=== PATIENT | male | born 1990 | race Caucasian/White ===

== ENCOUNTER → 2016-10-04 | Outpatient (REF) | payer OTHER ==
[2016-10-04 18:40] LABS: ALBUMIN 3.7 GM/DL (3.2-5.2); ALBUMIN/GLOBULIN RATIO 1.28 (1.00-1.93); ALKALINE PHOSPHATASE 73 U/L (45-117); ALT/SGPT 39 U/L (12-78); ANION GAP 4 MEQ/L (8-16); AST/SGOT 15 U/L (15-37); BILIRUBIN,TOTAL 0.6 MG/DL (0.2-1.0); BLOOD UREA NITROGEN 13 MG/DL (7-18); CALCIUM LEVEL 8.6 MG/DL (8.5-10.1); CARBON DIOXIDE LEVEL 30 MEQ/L (21-32); CHLORIDE LEVEL 108 MEQ/L (98-107); CHOLESTEROL LEVEL 173 MG/DL (<200); GLOMERULAR FILTRATION RATE > 60.0 (>60); GLUCOSE, FASTING 88 MG/DL (70-105); SODIUM LEVEL 142 MEQ/L (136-145); TOTAL PROTEIN 6.6 GM/DL (6.4-8.2); TRIGLYCERIDES LEVEL 326 MG/DL (<150)
== END ==
LOC: M LAB REF 16:26
PROVIDERS: ATTEND Family Medicine Addiction Medicine
DX: R03.0 Elevated blood-pressure reading, without diagnosis of hypertension (principal)

== ENCOUNTER 2017-11-13 15:24 | Emergency (ER) | payer OTHER ==
[2017-11-13] MEDS: KETOROLAC 60 MG/2 ML VIAL (J1885) IM (15:14)
== END 2017-11-13 15:46 | disposition home or self-care (01) ==
LOC: M ED 15:24
DX: S20.229A Contusion of unspecified back wall of thorax, initial encounter (principal); W10.9XXA Fall (on) (from) unspecified stairs and steps, initial encounter; Y92.009 Unspecified place in unspecified non-institutional (private) residence as the place of occurrence of the external cause; I10 Essential (primary) hypertension; Z79.899 Other long term (current) drug therapy; Z87.891 Personal history of nicotine dependence; Z88.0 Allergy status to penicillin; Z88.8 Allergy status to other drugs, medicaments and biological substances
CPT/HCPCS: J1885

== ENCOUNTER → 2018-07-16 | Outpatient (REF) | payer OTHER ==
[~2018-07-16] MED LIST: CHAN1PAK13 PO; CHLO125TA PO; NAPR-50 PO; SERT-138 PO
[2018-07-16 18:53] LABS: ALBUMIN 4.2 GM/DL (3.2-5.2); ALT/SGPT 50 U/L (12-78); BILIRUBIN,TOTAL 0.7 MG/DL (0.2-1.0); BLOOD UREA NITROGEN 10 MG/DL (7-18); CALCIUM LEVEL 8.9 MG/DL (8.5-10.1); CARBON DIOXIDE LEVEL 29 MEQ/L (21-32); CHLORIDE LEVEL 99 MEQ/L (98-107); CHOLESTEROL LEVEL 204 MG/DL (<200); CHOLESTEROL RISK RATIO 11.333 (<5); CREATININE FOR GFR 0.99 MG/DL (0.70-1.30); GLOMERULAR FILTRATION RATE > 60.0 (>60); GLUCOSE, FASTING 97 MG/DL (70-100); HDL CHOLESTEROL 18 MG/DL (>40); NON-HDL-C 186 MG/DL; POTASSIUM SERUM 3.2 MEQ/L (3.5-5.1); SODIUM LEVEL 137 MEQ/L (136-145); TOTAL PROTEIN 7.7 GM/DL (6.4-8.2); TRIGLYCERIDES LEVEL 781 MG/DL (<150)
== END ==
LOC: M LAB REF 16:50
PROVIDERS: ATTEND Family Medicine Addiction Medicine
DX: F41.8 Other specified anxiety disorders (principal); R03.0 Elevated blood-pressure reading, without diagnosis of hypertension

== ENCOUNTER 2018-12-28 08:28 | Emergency (ER) | payer OTHER ==
[~2018-12-28] VITALS: Ht 188 cm; Wt 123.4 kg
[~2018-12-28 08:28] MED LIST changes: -NAPR-50 PO; +NAPR-837 PO
[2018-12-28 09:11] VITALS: BP 132/70
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
--- NOTE | 2018-12-28 10:35 | REP ---
REASON: Pain after trauma. PRIORS: None. CT cannot rule out an acute disc extrusion. Vertebral body height and alignment is within normal limits. The disc spaces are symmetric and well-maintained. There is no fracture. IMPRESSION: No bony abnormality. Electronically Signed by Aubrey Arceo DO 12/28/2018 12:26 P
[2018-12-28] MEDS ORDERED: PERC5TAB12 PO (11:14)
[2018-12-28] MEDS ORDERED: NAPR-837 PO (11:14)
== END 2018-12-28 11:24 | disposition home or self-care (01) ==
LOC: M ED 08:28
DX: S30.0XXA Contusion of lower back and pelvis, initial encounter (principal); W10.9XXA Fall (on) (from) unspecified stairs and steps, initial encounter; Y92.89 Other specified places as the place of occurrence of the external cause; Y93.9 Activity, unspecified; Y99.0 Civilian activity done for income or pay; I10 Essential (primary) hypertension; F32.9 Major depressive disorder, single episode, unspecified; Z72.0 Tobacco use; Z79.899 Other long term (current) drug therapy; Z88.0 Allergy status to penicillin

== ENCOUNTER → 2019-04-06 | Outpatient (REF) | payer OTHER ==
[~2019-04-06] MED LIST changes: +PERC5TAB12 PO
[2019-04-06 19:04] LABS: ALBUMIN 3.9 GM/DL (3.2-5.2); ALT/SGPT 44 U/L (12-78); BILIRUBIN,TOTAL 0.5 MG/DL (0.2-1.0); BLOOD UREA NITROGEN 16 MG/DL (7-18); CALCIUM LEVEL 8.9 MG/DL (8.5-10.1); CARBON DIOXIDE LEVEL 25 MEQ/L (21-32); CHLORIDE LEVEL 107 MEQ/L (98-107); CHOLESTEROL LEVEL 203 MG/DL (<200); CHOLESTEROL RISK RATIO 9.227 (<5); CREATININE FOR GFR 0.91 MG/DL (0.70-1.30); GLOMERULAR FILTRATION RATE > 60.0 (>60); GLUCOSE, FASTING 91 MG/DL (70-100); HDL CHOLESTEROL 22 MG/DL (>40); NON-HDL-C 181 MG/DL; POTASSIUM SERUM 4.4 MEQ/L (3.5-5.1); SODIUM LEVEL 140 MEQ/L (136-145); THYROID STIMULATING HORMONE 0.774 uIU/ML (0.358-3.740); TOTAL 25(OH) VITAMIN D 11.8 NG/ML (30.0-100.0); TRIGLYCERIDES LEVEL 441 MG/DL (<150)
[2019-04-06 19:44] LABS: HEMOGLOBIN A1c 5.2 %
== END ==
LOC: M LAB REF 16:39
PROVIDERS: ATTEND Nurse Practitioner Family
DX: Z00.01 Encounter for general adult medical examination with abnormal findings (principal)

== ENCOUNTER 2019-05-26 12:22 | Inpatient (IN) | payer OTHER ==
[~2019-05-26] VITALS: Ht 188 cm; Wt 121.6 kg
[2019-05-26] MEDS ORDERED: BUSP15TA47 PO (12:33)
[2019-05-26] MEDS ORDERED: FENO145T7 PO (12:33)
[2019-05-26] MEDS ORDERED: ATOM60CA PO (12:33)
[2019-05-26] MEDS ORDERED: LISI-538 PO (12:33)
[2019-05-26 13:01] LABS: HEMATOCRIT 44.9 % (42.0-52.0); HEMOGLOBIN 15.7 g/dl (13.5-17.5); MEAN CORPUSCULAR HEMOGLOBIN 30.1 pg (27.0-33.0); MEAN CORPUSCULAR VOLUME 86.2 fl (80.0-96.0); PLATELET COUNT, AUTOMATED 283 10^3/uL (150-450); RED BLOOD COUNT 5.21 10^6/uL (4.30-6.10); WHITE BLOOD COUNT 7.2 10^3/uL (4.0-10.0)
[2019-05-26 13:24] LABS: AMPHETAMINES LEVEL URINE NEGATIVE (NEGATIVE); BARBITURATES URINE NEGATIVE (NEGATIVE); BENZODIAZEPINES URINE NEGATIVE (NEGATIVE); CANNABINOIDS URINE NEGATIVE (NEGATIVE); COCAINE METABOLITE URINE NEGATIVE (NEGATIVE); METHADONE URINE NEGATIVE (NEGATIVE); OPIATES URINE NEGATIVE (NEGATIVE); PHENCYCLIDINE URINE NEGATIVE (NEGATIVE)
[2019-05-26 13:34] LABS: ACETAMINOPHEN LEVEL < 2.0 UG/ML (10.0-30.0); ALBUMIN 4.1 GM/DL (3.2-5.2); ALT/SGPT 34 U/L (12-78); BILIRUBIN,DIRECT 0.2 MG/DL (0.0-0.2); BILIRUBIN,TOTAL 0.5 MG/DL (0.2-1.0); BLOOD UREA NITROGEN 17 MG/DL (7-18); CALCIUM LEVEL 8.8 MG/DL (8.5-10.1); CARBON DIOXIDE LEVEL 24 MEQ/L (21-32); CHLORIDE LEVEL 110 MEQ/L (98-107); CREATININE FOR GFR 0.97 MG/DL (0.70-1.30); ETHYL ALCOHOL (ETHANOL) < 0.003 % (0.000-0.010); GLOMERULAR FILTRATION RATE > 60.0 (>60); GLUCOSE, FASTING 81 MG/DL (70-100); POTASSIUM SERUM 4.1 MEQ/L (3.5-5.1); SALICYLATE LEVEL 2.2 MG/DL (5.0-30.0); SODIUM LEVEL 141 MEQ/L (136-145); TOTAL PROTEIN 6.9 GM/DL (6.4-8.2)
[2019-05-26] MEDS ORDERED: MAALOX 30 ML SUSP *UDC PO PRN (19:15)
[2019-05-26] MEDS ORDERED: ACETAMINOPHEN TAB 650MG DOSE (2X325MG) PO PRN (19:15)
[2019-05-26] MEDS ORDERED: MOM 30ML SUSPENSION UDC PO PRN (19:15)
[2019-05-26 20:44] VITALS: BP 150/98
--- NOTE | 2019-05-26 21:26 | HPEPDOC ---
[facility] Medical History & Physical Date of Admission May 26, 2019 Date of Service: May 26, 2019 Attending Physician: CAMMIE BUSH MD History and Physical TIME OF SERVICE: 9:57 PM CHIEF COMPLAINT:Suicidal ideation. REASON FOR CONSULT: High blood pressure HISTORY OF PRESENT ILLNESS: This is a 29-year-old male who was admitted to the inpatient mental unit because of suicidal ideation. We were consulted to see the patient because on initial evaluation, his stock blood pressure is about 200. Repeat blood pressure was in the 150s over 99. The patient has a history of hypertension and is on 20 mg of lisinopril. He denies a prior history of diabetes, CVA, CKD or CAD. He is not sure if he's had a workup to rule out secondary causes of hypertension.He is not sure about his family history because he is adopted. He does drink coffee. REVIEW OF SYSTEMS: 12 point review of systems negative except as listed in HPI PAST MEDICAL/ SURGICAL HISTORY: Chronic hypertension Depression Anxiety Dyslipidemia. Status post left finger surgery SOCIAL HISTORY: He smokes He denies recreational drug use FAMILY HISTORY: Unknown because he is adopted ALLERGIES: Please see below. HOME MEDICATIONS: Please see below. PHYSICAL EXAMINATION: VITAL SIGNS: Please see below. GEN: well-nourished / well developed/ anxious and teary HEENT: NCAT / he has conjunctival injection CVS: RRR/NMRG/no lower extremity edema LUNGS: lungs are clear to auscultation bilaterally on room air MSK/EXTREMITIES: His gait is normal NEURO: CN 2-12 are grossly intact / speech is not dysarthric PSYCH: alert and oriented to person place and time/ able to understand and follow all commands LABORATORY DATA: See below. ASSESSMENT: Mr. Hunter is a 29 yr old male w PMH of depression, anxiety, chronic hypertension, dyslipidemia who is admitted inpatient health unit for management of suicidal ideations; we were consulted for comanagement of his hypertension. PLAN: 1. Uncontrolled hypertension. He is fairly young to have such high blood pressure. He denies a prior history of CAD, CKD, CVA, or diabetes His renal function appears to be intact and his TSH, glucose and calcium are normal Plan: discontinue lisinopril, start amlodipine 2.5 mg daily at bedtime and hydralazine 6.25 mg in the morning / I advised him to cut back on coffee and consume a low-salt diet / also encouraged him to exercise and informed him that weight loss and exercise can help improve his blood pressure control / he can follow-up with his PCP on an outpatient basis to rule out secondary causes of hypertension 2. Tobacco abuse. Plan: Tobacco cessation education Rest of the management per primary team. Thank you for consulting us. We will continue to follow this patient with you Vital Signs Vital Signs Date Time Temp Pulse Resp B/P (MAP) Pulse Ox O2 Delivery O2 Flow Rate FiO2 05/26/19 20:44 97.5 78 16 150/98 (115) 98 Room Air Laboratory Data Labs 24H Laboratory Tests 2 05/26/19 12:46: Nucleated Red Blood Cells % (auto) 0.0, Anion Gap 7L, Glomerular Filtration Rate > 60.0, Calcium Level 8.8, Total Bilirubin 0.5, Direct Bilirubin 0.2, Aspartate Amino Transf (AST/SGOT) 16, Alanine Aminotransferase (ALT/SGPT) 34, Alkaline Phosphatase 50, Total Protein 6.9, Albumin 4.1, Albumin/Globulin Ratio 1.46, Thyroid Stimulating Hormone (TSH) 1.060, Salicylates Level 2.2L, Urine Opiates Screen NEGATIVE, Urine Methadone Screen NEGATIVE, Acetaminophen Level < 2.0L, Urine Barbiturates Screen NEGATIVE, Urine Phencyclidine Screen NEGATIVE, Urine Amphetamines Screen NEGATIVE, Urine Benzodiazepines Screen NEGATIVE, Urine Cocaine Metabolite Screen NEGATIVE, Urine Cannabinoids Screen NEGATIVE, Ethyl Alcohol Level < 0.003 CBC/BMP Laboratory Tests 05/26/19 12:46 Home Medications Scheduled Atomoxetine Hydrochloride (Strattera) 60 Mg Capsule, 60 MG PO DAILY Buspirone HCl (Buspirone HCl) 15 Mg Tablet, 15 MG PO BID Fenofibrate Nanocrystallized (Fenofibrate) 145 Mg Tablet, 145 MG PO DAILY Lisinopril (Lisinopril) 20 Mg Tablet, 20 MG PO DAILY Sertraline HCl (Sertraline HCl) 100 Mg Tab, 100 MG PO DAILY Allergies Coded Allergies: amoxicillin (Verified Adverse Reaction, Intermediate, vomits, 05/26/19) clavulanic acid (Verified Adverse Reaction, Intermediate, vomits, 05/26/19) oxycodone (Verified Adverse Reaction, Intermediate, vomiting, 05/26/19) A-FIB/CHADSVASC A-FIB History Current/History of A-Fib/PAF?: No Current PO Anticoag Therapy: No GAURAV JEROME MD May 26, 2019 21:26
[2019-05-26] MEDS ORDERED: LORazepam 1 MG TAB PO PRN (21:30)
[2019-05-26] MEDS: traZODone 50 MG TAB PO PRN (23:06)
[2019-05-27] MEDS: HYDROCHLOROthiazide 6.25MG PER 1/4TAB PO SCH (08:25)
[2019-05-27] MEDS: NICOTINE 21MG/24HR 1 EA TRANSDERMAL TD SCH (08:28)
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
[2019-05-27] MEDS ORDERED: hydrOXYzine 50 MG TAB PO PRN (09:30)
[2019-05-27] MEDS ORDERED: busPIRone 5 MG TAB PO ONE (10:00)
[2019-05-27] MEDS ORDERED: SERTRALINE HCL 50 MG TAB PO ONE (10:00)
[2019-05-27] MEDS: ATOMOXETINE HCL 40 MG CAP (STRATTERA) PO SCH (10:26)
[2019-05-27 15:47] VITALS: BP 129/75
[2019-05-27] MEDS: busPIRone 5 MG TAB PO SCH (21:10)
[2019-05-27] MEDS: traZODone 50 MG TAB PO PRN (22:49)
[2019-05-28 07:59] VITALS: BP 155/83
[2019-05-28] MEDS: ATOMOXETINE HCL 40 MG CAP (STRATTERA) PO SCH (08:17)
[2019-05-28] MEDS: SERTRALINE HCL 50 MG TAB PO SCH (08:18)
[2019-05-28] MEDS: NICOTINE 21MG/24HR 1 EA TRANSDERMAL TD SCH (08:18)
[2019-05-28] MEDS: busPIRone 5 MG TAB PO SCH ×2 (08:18→20:39)
[2019-05-28] MEDS: HYDROCHLOROthiazide 6.25MG PER 1/4TAB PO SCH (09:31)
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
[2019-05-28 15:52] VITALS: BP 140/94
[2019-05-28] MEDS: traZODone 50 MG TAB PO PRN (22:59)
[2019-05-29 06:36] VITALS: BP 136/77
[2019-05-29] MEDS: ATOMOXETINE HCL 40 MG CAP (STRATTERA) PO SCH (08:20)
[2019-05-29] MEDS: SERTRALINE HCL 50 MG TAB PO SCH (08:20)
[2019-05-29] MEDS: busPIRone 5 MG TAB PO SCH ×2 (08:20→21:10)
[2019-05-29] MEDS: NICOTINE 21MG/24HR 1 EA TRANSDERMAL TD SCH (08:20)
[2019-05-29] MEDS: HYDROCHLOROthiazide 6.25MG PER 1/4TAB PO SCH (08:20)
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
[2019-05-29] MEDS ORDERED: OLANZapine ORAL DISINTEGRATING TAB 5MG PO PRN (09:45)
[2019-05-29] MEDS ORDERED: OLANZapine ORAL DISINTEGRATING TAB 5MG PO ONE (10:00)
[2019-05-29] MEDS ORDERED: PROPRANOLOL 10 MG TAB PO ONE (10:00)
[2019-05-29] MEDS: PROPRANOLOL 10 MG TAB PO SCH ×2 (15:54→21:09)
[2019-05-29 16:43] VITALS: BP 131/63
[2019-05-29] MEDS: traZODone 50 MG TAB PO PRN (21:09)
[2019-05-30 06:42] VITALS: BP 130/81
[2019-05-30] MEDS: busPIRone 5 MG TAB PO SCH ×2 (08:14→20:09)
[2019-05-30] MEDS: SERTRALINE HCL 50 MG TAB PO SCH (08:14)
[2019-05-30] MEDS: NICOTINE 21MG/24HR 1 EA TRANSDERMAL TD SCH (08:14)
[2019-05-30] MEDS: PROPRANOLOL 10 MG TAB PO SCH ×3 (08:15→20:10)
[2019-05-30] MEDS: HYDROCHLOROthiazide 6.25MG PER 1/4TAB PO SCH (08:15)
[2019-05-30 16:18] VITALS: BP 138/83
[2019-05-30] MEDS: traZODone 50 MG TAB PO PRN (21:19)
[2019-05-31 06:44] VITALS: BP 135/82
[2019-05-31] MEDS: SERTRALINE HCL 50 MG TAB PO SCH (08:49)
[2019-05-31] MEDS: busPIRone 5 MG TAB PO SCH (08:49)
[2019-05-31 08:50] VITALS: BP 138/71
[2019-05-31] MEDS: NICOTINE 21MG/24HR 1 EA TRANSDERMAL TD SCH (08:50)
[2019-05-31] MEDS: PROPRANOLOL 10 MG TAB PO SCH (08:50)
[2019-05-31] MEDS: HYDROCHLOROthiazide 6.25MG PER 1/4TAB PO SCH (08:50)
[2019-05-31] MEDS ORDERED: ATOM60CA PO (09:05)
[2019-05-31] MEDS ORDERED: SERT50TA29 PO (09:05)
[2019-05-31] MEDS ORDERED: TRAZ-252 PO (09:05)
[2019-05-31] MEDS ORDERED: BUSP15TA47 PO (09:05)
[2019-05-31] MEDS ORDERED: HYDR50TA70 PO (09:05)
[2019-05-31] MEDS ORDERED: PROP10TA56 PO (09:05)
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
== END 2019-05-31 10:26 | disposition home or self-care (01) | DRG 755 ==
LOC: M ED 12:22 → M ED INP 19:08 → M PSY 20:24
PROVIDERS: ADMIT Psychiatry & Neurology Psychiatry; ATTEND Psychiatry & Neurology Psychiatry
DX: F43.10 Post-traumatic stress disorder, unspecified (principal); F32.9 Major depressive disorder, single episode, unspecified; F43.21 Adjustment disorder with depressed mood; F45.22 Body dysmorphic disorder; R45.851 Suicidal ideations; Z91.5 Personal history of self-harm; Z62.810 Personal history of physical and sexual abuse in childhood; F90.9 Attention-deficit hyperactivity disorder, unspecified type; Z79.899 Other long term (current) drug therapy; I10 Essential (primary) hypertension; Z88.0 Allergy status to penicillin; Z88.8 Allergy status to other drugs, medicaments and biological substances; Z88.6 Allergy status to analgesic agent; F41.9 Anxiety disorder, unspecified; E78.5 Hyperlipidemia, unspecified; F17.210 Nicotine dependence, cigarettes, uncomplicated

== ENCOUNTER 2019-06-16 20:01 | Inpatient (IN) | payer OTHER ==
[~2019-06-16] VITALS: Ht 188 cm; Wt 122.5 kg
[2019-06-16] MEDS: NICOTINE 14 MG/24 HR TRANSDERMAL TD SCH (09:00)
[~2019-06-16 20:01] MED LIST changes: +ATOM60CA PO; +BUSP15TA47 PO; +FENO145T7 PO; +HYDR50TA70 PO; +LISI-538 PO; +PROP10TA56 PO; +SERT50TA29 PO; +TRAZ-252 PO
[2019-06-16] MEDS ORDERED: CHARCOAL ACTIVATED LIQUID 25 GM/120 ML BTL PO ONE (20:45)
[2019-06-16 21:09] LABS: BASO # 0.1 10^3/uL (0.0-0.2); BASO % 0.5 % (0.0-1.0); EOS # 0.1 10^3/uL (0.0-0.5); EOS % 0.8 % (0.0-3.0); HEMATOCRIT 43.2 % (42.0-52.0); HEMOGLOBIN 15.2 g/dl (13.5-17.5); LYMPH # 2.5 10^3/uL (1.5-5.0); LYMPH % 24.1 % (24.0-44.0); MEAN CORPUSCULAR HEMOGLOBIN 30.3 pg (27.0-33.0); MEAN CORPUSCULAR HGB CONC 35.2 g/dl (32.0-36.5); MEAN CORPUSCULAR VOLUME 86.1 fl (80.0-96.0); MONO # 0.8 10^3/uL (0.0-0.8); MONO % 7.3 % (0.0-5.0); NEUTROPHILS # 6.8 10^3/uL (1.5-8.5); NEUTROPHILS % 66.5 % (36.0-66.0); PLATELET COUNT, AUTOMATED 273 10^3/uL (150-450); RED BLOOD COUNT 5.02 10^6/uL (4.30-6.10); WHITE BLOOD COUNT 10.3 10^3/uL (4.0-10.0)
[2019-06-16 21:43] LABS: AMPHETAMINES LEVEL URINE NEGATIVE (NEGATIVE); BARBITURATES URINE NEGATIVE (NEGATIVE); BENZODIAZEPINES URINE NEGATIVE (NEGATIVE); CANNABINOIDS URINE NEGATIVE (NEGATIVE); COCAINE METABOLITE URINE NEGATIVE (NEGATIVE); METHADONE URINE NEGATIVE (NEGATIVE); OPIATES URINE NEGATIVE (NEGATIVE); PHENCYCLIDINE URINE NEGATIVE (NEGATIVE)
[2019-06-16 22:04] LABS: ACETAMINOPHEN LEVEL < 2.0 UG/ML (10.0-30.0); ALBUMIN 3.8 GM/DL (3.2-5.2); ALT/SGPT 48 U/L (12-78); BILIRUBIN,DIRECT < 0.1 MG/DL (0.0-0.2); BILIRUBIN,TOTAL 0.3 MG/DL (0.2-1.0); BLOOD UREA NITROGEN 8 MG/DL (7-18); CALCIUM LEVEL 8.4 MG/DL (8.5-10.1); CARBON DIOXIDE LEVEL 26 MEQ/L (21-32); CHLORIDE LEVEL 109 MEQ/L (98-107); CPK CREATINE PHOSPHOKINASE 157 U/L (39-308); CREATININE FOR GFR 0.86 MG/DL (0.70-1.30); ETHYL ALCOHOL (ETHANOL) < 0.003 % (0.000-0.010); GLOMERULAR FILTRATION RATE > 60.0 (>60); GLUCOSE, FASTING 150 MG/DL (70-100); SALICYLATE LEVEL < 1.7 MG/DL (5.0-30.0); SODIUM LEVEL 141 MEQ/L (136-145); TOTAL PROTEIN 6.9 GM/DL (6.4-8.2)
[2019-06-17] MEDS ORDERED: methylPREDNISolone INJ 125 MG/2 ML VIAL (J2930) IM ONE (00:30)
--- NOTE | 2019-06-17 01:06 | REP ---
Clinical: Dyspnea . Comparison: None . Technique: PA and lateral. Findings: The mediastinum and cardiac silhouette are normal. The lung hammond are clear and without acute consolidation, effusion, or pneumothorax. The skeletal structures are intact and normal. Impression: 1. No focal consolidation. Electronically Signed by Skinny Mann MD 06/17/2019 12:57 A
[2019-06-17] MEDS ORDERED: ACETAMINOPHEN TAB 650MG DOSE (2X325MG) PO PRN (02:15)
[2019-06-17] MEDS ORDERED: MOM 30ML SUSPENSION UDC PO PRN (02:15)
[2019-06-17] MEDS ORDERED: MAALOX 30 ML SUSP *UDC PO PRN (02:15)
[2019-06-17 02:54] VITALS: BP 138/88
[2019-06-17] MEDS ORDERED: HYDR50TA70 PO (03:02)
[2019-06-17] MEDS ORDERED: SERT-138 PO (03:02)
[2019-06-17] MEDS ORDERED: BUSP15TA47 PO (03:02)
[2019-06-17] MEDS ORDERED: TRAZ-252 PO (03:02)
[2019-06-17] MEDS ORDERED: ATOM60CA PO (03:02)
[2019-06-17] MEDS ORDERED: PROP10TA56 PO (03:02)
[2019-06-17 06:27] VITALS: BP 138/89
--- NOTE | 2019-06-17 08:53 | HPEPDOC ---
[facility] Medical History & Physical Date of Admission Jun 17, 2019 Date of Service: Jun 17, 2019 History and Physical CHIEF COMPLAINT: Suicide attempt HISTORY OF PRESENT ILLNESS: 29-year-old male with past medical history of depression and hypertension as is admitted to inpatient mental health unit after suicide attempt. Patient reports having waxing and waning anxiety/depression with multiple suicide attempts in the past. Patient is not sure what changed recently to cause him to attempt suicide. He attempted strangulating, followed by overdosing on trazodone. He only took 5 tabs and presented to the emergency department soon afterwards. Patient is currently at his baseline level of health, without any complaints at this time. He denies any shortness of breath, chest pain, nausea, vomiting, abdominal pain or diarrhea. 10 point review of system is negative except for above PAST MEDICAL HISTORY: 1. Depression. 2. Anxiety. 3. Hypertension. PAST SURGICAL HISTORY: 1. None. SOCIAL HISTORY: Smokes 5 cigarettes per day, has been smoking for 6 years. Social alcohol use. Denies drug use FAMILY HISTORY: Patient does not know family history ALLERGIES: Please see below. HOME MEDICATIONS: Please see below. PHYSICAL EXAMINATION: VITAL SIGNS: Please see below. GENERAL: No distress HEENT: Normocephalic, atraumatic, moist mucous membranes NECK: Supple CARDIOVASCULAR EXAMINATION: S1, S2, no murmurs RESPIRATORY EXAMINATION: Clear to auscultation, no wheezing ABDOMINAL EXAMINATION: Soft, nontender, nondistended, positive bowel sounds EXTREMITIES: Range of motion intact SKIN: No rash NEUROLOGICAL EXAMINATION: Alert and oriented 3, no focal deficits PSYCHIATRIC EXAMINATION: Calm and cooperative LABORATORY DATA: See below. MICROBIOLOGY: Please see below. ASSESSMENT: 29-year-old male with past medical history of depression and hypertension is admitted to inpatient mental health unit after suicide attempt. PLAN: 1. Suicide attempt. Management as per primary team 2. Hypertension. Continue lisinopril and propranolol Patient does not have any active medical issues at this time, please reconsult as needed. Vital Signs Vital Signs Date Time Temp Pulse Resp B/P (MAP) Pulse Ox O2 Delivery O2 Flow Rate FiO2 06/17/19 06:27 98.5 66 18 138/89 (105) 06/17/19 02:54 97 Room Air Laboratory Data Labs 24H Laboratory Tests 2 06/16/19 20:59: Immature Granulocyte % (Auto) 0.8, Neutrophils (%) (Auto) 66.5H, Lymphocytes (%) (Auto) 24.1, Monocytes (%) (Auto) 7.3H, Eosinophils (%) (Auto) 0.8, Basophils (%) (Auto) 0.5, Neutrophils # (Auto) 6.8, Lymphocytes # (Auto) 2.5, Monocytes # (Auto) 0.8, Eosinophils # (Auto) 0.1, Basophils # (Auto) 0.1, Nucleated Red Blood Cells % (auto) 0.0, Anion Gap 6L, Glomerular Filtration Rate > 60.0, Calcium Level 8.4L, Total Bilirubin 0.3, Direct Bilirubin < 0.1, Aspartate Amino Transf (AST/SGOT) 20, Alanine Aminotransferase (ALT/SGPT) 48, Alkaline Alexis sphatase 60, Total Creatine Kinase 157, Total Protein 6.9, Albumin 3.8, Albumin/Globulin Ratio 1.23, Thyroid Stimulating Hormone (TSH) 1.420, Salicylates Level < 1.7L, Acetaminophen Level < 2.0L, Ethyl Alcohol Level < 0.003 06/16/19 21:15: Urine Opiates Screen NEGATIVE, Urine Methadone Screen NEGATIVE, Urine Barbiturates Screen NEGATIVE, Urine Phencyclidine Screen NEGATIVE, Urine Amphetamines Screen NEGATIVE, Urine Benzodiazepines Screen NEGATIVE, Urine Cocaine Metabolite Screen NEGATIVE, Urine Cannabinoids Screen NEGATIVE CBC/BMP Laboratory Tests 06/16/19 20:59 Home Medications Scheduled Atomoxetine Hydrochloride (Strattera) 60 Mg Capsule, 60 MG PO DAILY for Buspirone HCl (Buspirone HCl) 15 Mg Tablet, 15 MG PO BID for Fenofibrate Nanocrystallized (Fenofibrate) 145 Mg Tablet, 145 MG PO DAILY for Lisinopril (Lisinopril) 20 Mg Tablet, 20 MG PO DAILY for Propranolol HCl (Propranolol HCl) 10 Mg Tablet, 10 MG PO TID for Sertraline HCl (Sertraline HCl) 100 Mg Tablet, 150 MG PO DAILY for Scheduled PRN Hydroxyzine HCl (Hydroxyzine HCl) 50 Mg Tablet, 50 MG PO Q6H PRN for ANXIETY Trazodone HCl (Trazodone HCl) 50 Mg Tablet, 50 MG PO QHS PRN for INSOMNIA Allergies Coded Allergies: amoxicillin (Verified Adverse Reaction, Intermediate, vomits, 05/26/19) clavulanic acid (Verified Adverse Reaction, Intermediate, vomits, 05/26/19) oxycodone (Verified Adverse Reaction, Intermediate, vomiting, 05/26/19) A-FIB/CHADSVASC A-FIB History Current/History of A-Fib/PAF?: No YUNI INIGUEZ MD Jun 17, 2019 08:53
[2019-06-17] MEDS: FENOFIBRATE 145 MG TAB (TRICOR) PO SCH (08:56)
[2019-06-17] MEDS: lisinopriL 20 MG TAB PO SCH (08:58)
[2019-06-17] MEDS ORDERED: SERTRALINE HCL 50 MG TAB PO SCH (09:00)
[2019-06-17] MEDS ORDERED: ATOMOXETINE HCL 40 MG CAP (STRATTERA) PO SCH ×2 (09:00)
[2019-06-17] MEDS: NICOTINE 14 MG/24 HR TRANSDERMAL TD SCH (09:00)
[2019-06-17] MEDS ORDERED: busPIRone 5 MG TAB PO SCH (09:00)
[2019-06-17] MEDS: PROPRANOLOL 10 MG TAB PO SCH ×3 (10:11→20:36)
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
[2019-06-17 15:41] VITALS: BP 149/70
[2019-06-18 06:08] VITALS: BP 142/71
[2019-06-18] MEDS: lisinopriL 20 MG TAB PO SCH (08:44)
[2019-06-18] MEDS: NICOTINE 14 MG/24 HR TRANSDERMAL TD SCH (08:44)
[2019-06-18] MEDS: FENOFIBRATE 145 MG TAB (TRICOR) PO SCH (08:46)
[2019-06-18] MEDS: PROPRANOLOL 10 MG TAB PO SCH ×3 (08:46→20:45)
[2019-06-18] MEDS ORDERED: VENLAFAXINE **XR** 37.5 MG CAPSULE PO SCH (09:00)
[2019-06-18] MEDS ORDERED: SERTRALINE 100 MG TAB PO SCH (09:00)
[2019-06-18] MEDS ORDERED: ATOMOXETINE HCL 40 MG CAP (STRATTERA) PO SCH (09:00)
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
--- NOTE | 2019-06-18 13:13 | ECGEPIP ---
[facility] - ED Test Date: 2019-06-16 Pat Name: FERNANDO RASMUSSEN Department: Room: [place] [address] Gender: Male [employer]: : 1990 Requested By: JIMENA BURTON Order Number: [id number] Reading MD: Emelina Hopkins Measurements Intervals [place] Rate: 99 P: 42 WV: 148 QRS: 40 QRSD: 82 T: 42 QT: 334 QTc: 429 Interpretive Statements SINUS RHYTHM POSSIBLE LEFT ATRIAL ENLARGEMENT NONSPECIFIC ST & T-WAVE ABNORMALITY NO PRIOR Electronically Signed on 06-18-2019 13:13:09 EST by Emelina Hopkins
[2019-06-18 15:07] VITALS: BP 122/55
[2019-06-18] MEDS: OLANZapine ORAL DISINTEGRATING TAB 5MG PO PRN (17:43)
[2019-06-18] MEDS: ARIPiprazole 2 MG TAB PO SCH (20:45)
[2019-06-18] MEDS: RAMELTEON 8 MG TAB (ROZEREM) PO SCH (20:45)
[2019-06-19 06:06] VITALS: BP 130/65
[2019-06-19] MEDS: VENLAFAXINE **XR** 75MG CAPSULE PO SCH (08:34)
[2019-06-19] MEDS: lisinopriL 20 MG TAB PO SCH (08:34)
[2019-06-19] MEDS: FENOFIBRATE 145 MG TAB (TRICOR) PO SCH (08:34)
[2019-06-19] MEDS: PROPRANOLOL 10 MG TAB PO SCH ×3 (08:34→20:06)
[2019-06-19] MEDS: SERTRALINE HCL 25 MG TABLET PO SCH (08:34)
[2019-06-19] MEDS: NICOTINE 14 MG/24 HR TRANSDERMAL TD SCH (08:35)
[2019-06-19 15:29] VITALS: BP 138/77
--- NOTE | 2019-06-19 16:15 | MHIPN ---
DATE: 06/19/2019 The patient today was sleeping in his bed, but he arose easily. He stated, "I am feeling pretty good." He says that his mood is now 3 out of 10 where the closest to 10 is the most depressed. He says that he slept good. He had no complaints. MENTAL STATUS EXAMINATION: He is alert and oriented times three. He is verbally spontaneous. There is no formal thought disorder noted. He says his mood is "pretty good." Affect is constricted but appropriate to mood. He is not psychotic, suicidal or homicidal. Concentration is fair. Memory intact. Insight and judgment fair. DIAGNOSES: 1. Posttraumatic stress disorder (PTSD). 2. Major depressive disorder. 3. Borderline personality disorder. TREATMENT PLAN: At this point, we will continue to further evaluate this patient for continued elevation and stabilization of his mood and continued resolution of suicidal ideations. We will continue his cross tapering his Zoloft with Effexor and continue his Abilify.
[2019-06-19] MEDS: OLANZapine ORAL DISINTEGRATING TAB 5MG PO PRN (19:41)
[2019-06-19] MEDS: RAMELTEON 8 MG TAB (ROZEREM) PO SCH (20:06)
[2019-06-19] MEDS: ARIPiprazole 2 MG TAB PO SCH (20:06)
[2019-06-19 20:23] VITALS: BP 163/93
[2019-06-20 06:12] VITALS: BP 142/76
[2019-06-20] MEDS: FENOFIBRATE 145 MG TAB (TRICOR) PO SCH (08:20)
[2019-06-20] MEDS: VENLAFAXINE **XR** 75MG CAPSULE PO SCH (08:20)
[2019-06-20] MEDS: PROPRANOLOL 10 MG TAB PO SCH ×3 (08:20→20:25)
[2019-06-20] MEDS: SERTRALINE HCL 25 MG TABLET PO SCH (08:20)
[2019-06-20] MEDS: lisinopriL 20 MG TAB PO SCH (08:20)
[2019-06-20] MEDS: NICOTINE 14 MG/24 HR TRANSDERMAL TD SCH (08:22)
--- NOTE | 2019-06-20 13:22 | MHIPN ---
DATE: 06/20/2019 The patient today tells me that he is actually feeling a little bit better. He has spoken with his girlfriend who is willing to support his being gender questioning but they would be just be friends and they can continue to live together. He also told his parents. He feels as a result he is feeling less depressed. He is not suicidal. He says that he slept better last night. MENTAL STATUS EXAM: This is patient is alert and oriented times three. Eye contact is fairly good. He is not psychotic and he denies suicidal, homicidal ideations. He is verbally spontaneous and there is no formal thought disorder noted. Concentration is fair. Memory is intact. Insight and judgment is fair. DIAGNOSIS: Post-traumatic stress disorder, major depressive disorder and borderline personality disorder. TREATMENT AND PLAN: At this point we will continue to monitor the patient for continued elevation and stabilization of his mood and continue resolution of suicidal ideations and we will continue to cross titrate his medications particularly the change from Zoloft to Effexor.
[2019-06-20] MEDS: OLANZapine ORAL DISINTEGRATING TAB 5MG PO PRN (14:11)
[2019-06-20 16:02] VITALS: BP 136/67
[2019-06-20] MEDS: RAMELTEON 8 MG TAB (ROZEREM) PO SCH (20:24)
[2019-06-20] MEDS: ARIPiprazole 2 MG TAB PO SCH (20:30)
[2019-06-21 06:50] VITALS: BP 119/63
[2019-06-21] MEDS: NICOTINE 14 MG/24 HR TRANSDERMAL TD SCH (08:22)
[2019-06-21] MEDS: lisinopriL 20 MG TAB PO SCH (08:28)
[2019-06-21] MEDS: PROPRANOLOL 10 MG TAB PO SCH ×3 (08:29→20:07)
[2019-06-21] MEDS: SERTRALINE HCL 25 MG TABLET PO SCH (08:29)
[2019-06-21] MEDS: FENOFIBRATE 145 MG TAB (TRICOR) PO SCH (08:29)
[2019-06-21] MEDS: VENLAFAXINE **XR** 75MG CAPSULE PO SCH (08:29)
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
[2019-06-21 16:00] VITALS: BP 136/83
[2019-06-21] MEDS: OLANZapine ORAL DISINTEGRATING TAB 5MG PO PRN (16:14)
[2019-06-21] MEDS: ARIPiprazole 2 MG TAB PO SCH (20:06)
[2019-06-21] MEDS: RAMELTEON 8 MG TAB (ROZEREM) PO SCH (20:06)
[2019-06-22 06:14] VITALS: BP 133/88
[2019-06-22] MEDS: NICOTINE 14 MG/24 HR TRANSDERMAL TD SCH (08:06)
[2019-06-22 08:11] VITALS: BP 132/78
[2019-06-22] MEDS: FENOFIBRATE 145 MG TAB (TRICOR) PO SCH (08:11)
[2019-06-22] MEDS: lisinopriL 20 MG TAB PO SCH (08:11)
[2019-06-22] MEDS: PROPRANOLOL 10 MG TAB PO SCH (08:11)
[2019-06-22] MEDS ORDERED: SERTRALINE HCL 25 MG TABLET PO SCH (09:00)
[2019-06-22] MEDS ORDERED: VENLAFAXINE **XR** 75MG CAPSULE PO SCH (09:00)
[2019-06-22] MEDS ORDERED: VENLAFAXINE **XR** 37.5 MG CAPSULE PO SCH (09:00)
[2019-06-22] MEDS ORDERED: VENL37.598 PO (11:23)
[2019-06-22] MEDS ORDERED: ABIL1TAB13 PO (11:23)
[2019-06-22] MEDS ORDERED: MELA3TAB24 PO (11:23)
[2019-06-22] MEDS ORDERED: NICO14PA TD (11:23)
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
== END 2019-06-22 12:25 | disposition home or self-care (01) | DRG 755 ==
LOC: M ED 20:01 → M ED INP 06-17 02:08 → M PSY 06-17 02:32
PROVIDERS: ADMIT Psychiatry & Neurology Psychiatry; ATTEND Psychiatry & Neurology Addiction Medicine
DX: F43.12 Post-traumatic stress disorder, chronic (principal); F32.1 Major depressive disorder, single episode, moderate; F60.3 Borderline personality disorder; Z62.810 Personal history of physical and sexual abuse in childhood; F90.9 Attention-deficit hyperactivity disorder, unspecified type; Z91.5 Personal history of self-harm; Z79.899 Other long term (current) drug therapy; Z88.1 Allergy status to other antibiotic agents; Z88.5 Allergy status to narcotic agent; Z88.8 Allergy status to other drugs, medicaments and biological substances; I10 Essential (primary) hypertension; F17.210 Nicotine dependence, cigarettes, uncomplicated

== ENCOUNTER 2019-08-22 15:51 | Inpatient (IN) | payer OTHER ==
[~2019-08-22] VITALS: Ht 182.9 cm; Wt 128.4 kg
[~2019-08-22 15:51] MED LIST changes: +ABIL1TAB13 PO; +MELA3TAB24 PO; +NICO14PA TD; +VENL37.598 PO
[2019-08-22] MEDS ORDERED: ESTR1TAB PO (15:58)
[2019-08-22] MEDS ORDERED: FINA1TAB12 PO (15:58)
[2019-08-22] MEDS ORDERED: NICOTINE 21MG/24HR 1 EA TRANSDERMAL TD ONE (16:30)
[2019-08-22 16:57] LABS: HEMATOCRIT 40.2 % (42.0-52.0); HEMOGLOBIN 14.3 g/dl (13.5-17.5); MEAN CORPUSCULAR HEMOGLOBIN 30.7 pg (27.0-33.0); MEAN CORPUSCULAR HGB CONC 35.6 g/dl (32.0-36.5); MEAN CORPUSCULAR VOLUME 86.3 fl (80.0-96.0); PLATELET COUNT, AUTOMATED 293 10^3/uL (150-450); RED BLOOD COUNT 4.66 10^6/uL (4.30-6.10); WHITE BLOOD COUNT 11.9 10^3/uL (4.0-10.0)
[2019-08-22] MEDS ORDERED: VENL37.52 PO (17:03)
[2019-08-22] MEDS ORDERED: ARIP1TAB4 PO (17:03)
[2019-08-22] MEDS ORDERED: FENO145T7 PO (17:03)
[2019-08-22 17:15] LABS: AMPHETAMINES LEVEL URINE NEGATIVE (NEGATIVE); BARBITURATES URINE NEGATIVE (NEGATIVE); BENZODIAZEPINES URINE NEGATIVE (NEGATIVE); CANNABINOIDS URINE NEGATIVE (NEGATIVE); COCAINE METABOLITE URINE NEGATIVE (NEGATIVE); METHADONE URINE NEGATIVE (NEGATIVE); OPIATES URINE NEGATIVE (NEGATIVE); PHENCYCLIDINE URINE NEGATIVE (NEGATIVE)
[2019-08-22 17:24] LABS: ACETAMINOPHEN LEVEL < 2.0 UG/ML (10.0-30.0); ALBUMIN 3.5 GM/DL (3.2-5.2); ALT/SGPT 35 U/L (12-78); BILIRUBIN,DIRECT < 0.1 MG/DL (0.0-0.2); BILIRUBIN,TOTAL 0.3 MG/DL (0.2-1.0); BLOOD UREA NITROGEN 9 MG/DL (7-18); CALCIUM LEVEL 8.3 MG/DL (8.5-10.1); CARBON DIOXIDE LEVEL 24 MEQ/L (21-32); CHLORIDE LEVEL 109 MEQ/L (98-107); CREATININE FOR GFR 0.84 MG/DL (0.70-1.30); ETHYL ALCOHOL (ETHANOL) < 0.003 % (0.000-0.010); GLOMERULAR FILTRATION RATE > 60.0 (>60); GLUCOSE, FASTING 106 MG/DL (70-100); POTASSIUM SERUM 3.6 MEQ/L (3.5-5.1); SALICYLATE LEVEL 1.8 MG/DL (5.0-30.0); SODIUM LEVEL 141 MEQ/L (136-145); THYROID STIMULATING HORMONE 0.808 uIU/ML (0.358-3.740); TOTAL PROTEIN 6.4 GM/DL (6.4-8.2)
[2019-08-22] MEDS ORDERED: OLANZapine 5 MG TAB PO PRN (19:45)
[2019-08-22] MEDS ORDERED: MAALOX 30 ML SUSP *UDC PO PRN (19:45)
[2019-08-22] MEDS ORDERED: MOM 30ML SUSPENSION UDC PO PRN (19:45)
[2019-08-22 20:39] VITALS: BP 170/84
[2019-08-22] MEDS ORDERED: ARIPiprazole 2 MG TAB PO SCH (21:00)
[2019-08-22 21:50] VITALS: BP 142/88
[2019-08-22] MEDS: estradioL 1 MG TAB PO SCH (21:59)
[2019-08-22] MEDS: traZODone 50 MG TAB PO PRN (22:00)
[2019-08-23 06:08] VITALS: BP 122/59
[2019-08-23] MEDS: lisinopriL 20 MG TAB PO SCH (08:29)
[2019-08-23] MEDS: NICOTINE 21MG/24HR 1 EA TRANSDERMAL TD SCH (08:29)
[2019-08-23] MEDS: ACETAMINOPHEN TAB 650MG DOSE (2X325MG) PO PRN ×2 (08:29→16:30)
[2019-08-23] MEDS: estradioL 1 MG TAB PO SCH ×2 (08:29→20:40)
[2019-08-23] MEDS: VENLAFAXINE **XR** 37.5 MG CAPSULE PO SCH (08:29)
[2019-08-23] MEDS: FENOFIBRATE 145 MG TAB (TRICOR) PO SCH (08:29)
--- NOTE | 2019-08-23 10:40 | HPEPDOC ---
General Date of Admission Aug 22, 2019 at 19:31 Date of Service: Aug 23, 2019 Chief Complaint The patient is a 29-year-old male admitted with a reason for visit of possible psychosis Source: Patient Exam Limitations: No limitations History of Present Illness Patient is a 29-year-old male transitioning to female with history of obesity (BMI 38) who presents for 2 weeks of auditory hallucinations with suicidal ideation. Of note: Patient would like to be called Yanique Patient states she was in her usual state of health until 2 weeks prior to adm ission when she started hearing command auditory hallucinations with suicidal ideation with plan. Since the hallucinations commanding her to kill herself. Patient mentions that plans include hanging self, car accident, cutting, and throwing herself down the stairs. Patient is a prior history with the same presentation of altered hallucinations and suicidal ideation in the past. Patient denies any new stressors. Denies transitioning to female as a stressor. Patient does not starting hormone therapy in June and patient wondering if her hormones are interfering with his medications. Patient denies any fever, chills, chest pain, difficulty breathing, nausea, vomiting, abdominal pain, dysuria, diarrhea, leg pain or swelling. Home Medications Scheduled Aripiprazole (Aripiprazole) 2 Mg Tablet, 2 MG PO QHS, (Reported) Estradiol (Estradiol) 1 Mg Tablet, 1 MG PO BID, (Reported) Fenofibrate Nanocrystallized (Fenofibrate) 145 Mg Tablet, 145 MG PO DAILY, (Reported) Finasteride (Finasteride) 1 Mg Tablet, 1 MG PO DAILY, (Reported) Lisinopril (Lisinopril) 20 Mg Tablet, 20 MG PO DAILY for , (Reported) Venlafaxine HCl (Venlafaxine HCl ER) 37.5 Mg Cap.er.24h, 112.5 MG PO DAILY, ( Reported) Allergies Coded Allergies: amoxicillin (Verified Adverse Reaction, Intermediate, vomits, 05/26/19) clavulanic acid (Verified Adverse Reaction, Intermediate, vomits, 05/26/19) oxycodone (Verified Adverse Reaction, Intermediate, vomiting, 05/26/19) Past Medical History Medical History Obesity (BMI 38), currently transitioning from male to female on hormone therapy Surgical History Tonsillectomy Family History Unknown, patient was adopted Social History * Smoker: current smoker, less than 1 pack/day (5 cigarettes per day 6 years) Alcohol: rarely Drugs: denies Lives with roommate A-FIB/CHADSVASC A-FIB History Current/History of A-Fib/PAF?: No Current PO Anticoag Therapy: No Review of Systems Other systems 14 point ROS reviewed and pertinent positives and negatives documented as per HPI. All other reviewed ROS negative. Physical Examination Other physical findings Obese male sitting in chair in no acute distress, somewhat withdrawn, but answering questions appropriately. PERRLA, EOMI, OP clear. No lymphadenopathy RRR, normal S1/2 no MRG appreciated. CTA B/L, no W/R/R Soft, nondistended, nontender. No edema, intact distal pulses. + Tattoos, no rash or skin breakdown appreciated. No focal deficits, normal speech AO 3, appropriate, withdrawn Vital Signs Vital Signs Date Time Temp Pulse Resp B/P (MAP) Pulse Ox O2 Delivery O2 Flow Rate FiO2 08/23/19 08:29 139/74 08/23/19 06:08 97.9 70 14 97 Room Air Laboratory Data Labs 24H Laboratory Tests 2 08/22/19 16:32: Nucleated Red Blood Cells % (auto) 0.0, Anion Gap 8, Glomerular Filtration Rate > 60.0, Calcium Level 8.3L, Total Bilirubin 0.3, Direct Bilirubin < 0.1, Aspartate Amino Transf (AST/SGOT) 15, Alanine Aminotransferase (ALT/SGPT) 35, Alkaline Phosphatase 58, Total Protein 6.4, Albumin 3.5, Albumin/Globulin Ratio 1.21, Thyroid Stimulating Hormone (TSH) 0.808, Salicylates Level 1.8L, Urine Opiates Screen NEGATIVE, Urine Methadone Screen NEGATIVE, Acetaminophen Level < 2.0L, Urine Barbiturates Screen NEGATIVE, Urine Phencyclidine Screen NEGATIVE, Urine Amphetamines Screen NEGATIVE, Urine Benzodiazepines Screen NEGATIVE, Urine Cocaine Metabolite Screen NEGATIVE, Urine Cannabinoids Screen NEGATIVE, Ethyl Alcohol Level < 0.003 CBC/BMP Laboratory Tests 08/22/19 16:32 Assessment/Plan Patient is a 29-year-old male transitioning to female with history of obesity (BMI 38) who presents for 2 weeks of auditory hallucinations with suicidal ideation concerning for psychosis. Patient does not appear to have any significant medical issues at this time. #Possible psychosis with suicidal ideation. Recommend suicide precautions until can be evaluated by psychiatry. Rest of plan per primary team (mental health) We'll research if there is interaction between hormones and her psych medications. #Obesity (BMI 38) Lifestyle modification discussion on discharge from [facility] DVT PPX: Low risk, ambulatory. Disposition: As per primary team Plan / VTE VTE Prophylaxis Ordered?: No VTE Exclusion Mechanical Proph: Low Risk for VTE VTE Exclusion Pharmacological: At Low Risk for VTE MIKE MARIO MD Aug 23, 2019 10:40
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
[2019-08-23 18:59] VITALS: BP 164/88
[2019-08-23] MEDS: traZODone 50 MG TAB PO PRN (20:40)
[2019-08-24 06:18] VITALS: BP 128/94
[2019-08-24] MEDS: estradioL 1 MG TAB PO SCH ×2 (09:00→20:42)
[2019-08-24] MEDS: VENLAFAXINE **XR** 37.5 MG CAPSULE PO SCH (09:01)
[2019-08-24] MEDS: FENOFIBRATE 145 MG TAB (TRICOR) PO SCH (09:01)
[2019-08-24] MEDS: NICOTINE 21MG/24HR 1 EA TRANSDERMAL TD SCH (09:02)
[2019-08-24] MEDS: lisinopriL 20 MG TAB PO SCH (09:04)
[2019-08-24] MEDS: ACETAMINOPHEN TAB 650MG DOSE (2X325MG) PO PRN (09:05)
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
[2019-08-24] MEDS: IBUPROFEN 400 MG TAB PO PRN ×2 (16:04→20:43)
[2019-08-24 17:57] VITALS: BP 144/85
[2019-08-24 18:32] VITALS: BP 144/85
[2019-08-24] MEDS: traZODone 50 MG TAB PO PRN (20:43)
[2019-08-24] MEDS ORDERED: risperiDONE 0.5 MG TAB PO SCH (21:00)
[2019-08-25 06:30] VITALS: BP 156/66
[2019-08-25] MEDS: NICOTINE 21MG/24HR 1 EA TRANSDERMAL TD SCH (08:31)
[2019-08-25] MEDS: VENLAFAXINE **XR** 75MG CAPSULE PO SCH (08:32)
[2019-08-25] MEDS: FENOFIBRATE 145 MG TAB (TRICOR) PO SCH (08:33)
[2019-08-25] MEDS: lisinopriL 20 MG TAB PO SCH (08:33)
[2019-08-25] MEDS: estradioL 1 MG TAB PO SCH ×2 (08:33→20:38)
[2019-08-25] MEDS: IBUPROFEN 400 MG TAB PO PRN (08:37)
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
[2019-08-25] MEDS ORDERED: traZODone 100 MG TAB PO PRN (10:30)
[2019-08-25] MEDS: risperiDONE 0.5 MG TAB PO SCH ×2 (11:30→20:38)
[2019-08-26 06:32] VITALS: BP 132/88
[2019-08-26] MEDS: NICOTINE 21MG/24HR 1 EA TRANSDERMAL TD SCH (09:00)
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
[2019-08-26 09:20] VITALS: BP 132/88
[2019-08-26] MEDS: risperiDONE 0.5 MG TAB PO SCH (09:20)
[2019-08-26] MEDS: lisinopriL 20 MG TAB PO SCH (09:20)
[2019-08-26] MEDS: VENLAFAXINE **XR** 75MG CAPSULE PO SCH (09:20)
[2019-08-26] MEDS: estradioL 1 MG TAB PO SCH (09:20)
[2019-08-26] MEDS: FENOFIBRATE 145 MG TAB (TRICOR) PO SCH (09:24)
[2019-08-26] MEDS ORDERED: TRAZ-257 PO (10:23)
[2019-08-26] MEDS ORDERED: NICO21PAT TD (10:23)
[2019-08-26] MEDS ORDERED: RISP0.5T21 PO (10:23)
[2019-08-26] MEDS ORDERED: VENL75CA47 PO (10:23)
== END 2019-08-26 13:00 | disposition home or self-care (01) | DRG 755 ==
LOC: M ED 15:51 → M ED INP 19:31 → M PSY 20:37
PROVIDERS: ADMIT Psychiatry & Neurology Psychiatry; ATTEND Psychiatry & Neurology Addiction Medicine
DX: F43.10 Post-traumatic stress disorder, unspecified (principal); F60.3 Borderline personality disorder; R45.851 Suicidal ideations; Z79.899 Other long term (current) drug therapy; Z88.0 Allergy status to penicillin; Z88.5 Allergy status to narcotic agent; Z88.8 Allergy status to other drugs, medicaments and biological substances; E66.9 Obesity, unspecified; Z68.38 Body mass index [BMI] 38.0-38.9, adult

== ENCOUNTER 2019-09-13 13:48 | Inpatient (IN) | payer OTHER ==
[~2019-09-13] VITALS: Ht 185.4 cm; Wt 125.0 kg
[~2019-09-13 13:48] MED LIST changes: +ARIP1TAB4 PO; +ESTR1TAB PO; +FINA1TAB12 PO; +NICO21PAT TD; +RISP0.5T21 PO; +TRAZ-257 PO; +VENL37.52 PO; +VENL75CA47 PO
[2019-09-13 14:26] LABS: HEMATOCRIT 40.6 % (42.0-52.0); HEMOGLOBIN 14.6 g/dl (13.5-17.5); MEAN CORPUSCULAR HEMOGLOBIN 31.1 pg (27.0-33.0); MEAN CORPUSCULAR VOLUME 86.4 fl (80.0-96.0); PLATELET COUNT, AUTOMATED 276 10^3/uL (150-450)
[2019-09-13 14:53] LABS: AMPHETAMINES LEVEL URINE NEGATIVE (NEGATIVE); BARBITURATES URINE NEGATIVE (NEGATIVE); BENZODIAZEPINES URINE NEGATIVE (NEGATIVE); CANNABINOIDS URINE NEGATIVE (NEGATIVE); COCAINE METABOLITE URINE NEGATIVE (NEGATIVE); METHADONE URINE NEGATIVE (NEGATIVE); OPIATES URINE NEGATIVE (NEGATIVE); PHENCYCLIDINE URINE NEGATIVE (NEGATIVE)
[2019-09-13 15:16] LABS: ACETAMINOPHEN LEVEL < 2.0 UG/ML (10.0-30.0); ALBUMIN 3.5 GM/DL (3.2-5.2); ALT/SGPT 35 U/L (12-78); BILIRUBIN,DIRECT 0.1 MG/DL (0.0-0.2); BILIRUBIN,TOTAL 0.5 MG/DL (0.2-1.0); BLOOD UREA NITROGEN 9 MG/DL (7-18); CALCIUM LEVEL 8.6 MG/DL (8.5-10.1); CARBON DIOXIDE LEVEL 24 MEQ/L (21-32); CHLORIDE LEVEL 107 MEQ/L (98-107); CREATININE FOR GFR 0.76 MG/DL (0.70-1.30); ETHYL ALCOHOL (ETHANOL) < 0.003 % (0.000-0.010); GLOMERULAR FILTRATION RATE > 60.0 (>60); GLUCOSE, FASTING 101 MG/DL (70-100); POTASSIUM SERUM 3.7 MEQ/L (3.5-5.1); SALICYLATE LEVEL 1.7 MG/DL (5.0-30.0); SODIUM LEVEL 138 MEQ/L (136-145); THYROID STIMULATING HORMONE 0.857 uIU/ML (0.358-3.740); TOTAL PROTEIN 6.5 GM/DL (6.4-8.2)
[2019-09-13] MEDS ORDERED: RISP0.5T3 PO (17:53)
[2019-09-13] MEDS ORDERED: VENL150C43 PO (17:53)
[2019-09-13] MEDS ORDERED: TRAZ-257 PO (17:54)
[2019-09-13] MEDS ORDERED: MAALOX 30 ML SUSP *UDC PO PRN (20:00)
[2019-09-13] MEDS ORDERED: ACETAMINOPHEN TAB 650MG DOSE (2X325MG) PO PRN (20:00)
[2019-09-13] MEDS ORDERED: MOM 30ML SUSPENSION UDC PO PRN (20:00)
[2019-09-13] MEDS: risperiDONE 0.5 MG TAB PO SCH (23:27)
[2019-09-13] MEDS: traZODone 100 MG TAB PO PRN (23:27)
[2019-09-13] MEDS: estradioL 1 MG TAB PO SCH (23:27)
[2019-09-13 23:55] VITALS: BP 148/95
[2019-09-14 06:44] VITALS: BP 139/65
[2019-09-14] MEDS: estradioL 1 MG TAB PO SCH ×2 (08:53→21:33)
[2019-09-14] MEDS: lisinopriL 20 MG TAB PO SCH (08:53)
[2019-09-14] MEDS: risperiDONE 0.5 MG TAB PO SCH (08:53)
[2019-09-14] MEDS: FENOFIBRATE 145 MG TAB (TRICOR) PO SCH (08:53)
[2019-09-14] MEDS ORDERED: VENLAFAXINE **XR** 75MG CAPSULE PO SCH (09:00)
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
--- NOTE | 2019-09-14 16:49 | HPEPDOC ---
General Date of Admission Sep 13, 2019 at 19:54 Date of Service: Sep 14, 2019 Chief Complaint The patient is a 29-year-old male admitted with a reason for visit of Post Traumatic Stress Disorder. Source: Patient Exam Limitations: No limitations Timing/Duration: 24 hours, Day(s) Severity: Moderate History of Present Illness Patient is 29 years old male w significant past medical history of obstructive sleep apnea, hypertension, hyperlipidemia, obesity, who was admitted in the hospital with depression. Patient stated that he was diagnosed with obstructive sleep apnea and he is waiting for CPAP on the next week. He denied any GI problem or dysuria. He denies fever, chills, nausea, vomiting, shortness of breath, palpitations, diarrhea or dysuria Home Medications Scheduled Estradiol (Estradiol) 1 Mg Tablet, 1 MG PO BID, (Reported) Fenofibrate Nanocrystallized (Fenofibrate) 145 Mg Tablet, 145 MG PO DAILY, (Reported) Finasteride (Finasteride) 1 Mg Tablet, 1 MG PO DAILY, (Reported) Lisinopril (Lisinopril) 20 Mg Tablet, 20 MG PO DAILY for , (Reported) Risperidone (Risperidone) 0.5 Mg Tablet, 0.5 MG PO BID, (Reported) Venlafaxine HCl (Venlafaxine HCl ER) 150 Mg Cap.er.24h, 150 MG PO DAILY, (Reported) Scheduled PRN Trazodone HCl (Trazodone HCl) 100 Mg Tablet, 100 MG PO QHS PRN for SLEEP, (Reported) Allergies Coded Allergies: amoxicillin (Verified Adverse Reaction, Intermediate, vomits, 05/26/19) clavulanic acid (Verified Adverse Reaction, Intermediate, vomits, 05/26/19) oxycodone (Verified Adverse Reaction, Intermediate, vomiting, 05/26/19) Past Medical History Medical History Obesity, obstructive sleep apnea, hyperlipidemia, hypertension Family History Patient was adopted Social History * Smoker: current smoker Alcohol: Denies Drugs: denies A-FIB/CHADSVASC A-FIB History Current/History of A-Fib/PAF?: No Current PO Anticoag Therapy: No Review of Systems Constitutional: Denies: Chills, Fever Eyes: Denies: Pain ENT: Denies: Head Aches Skin: Denies: Rash, Lesions Pulmonary: Denies: Dyspnea, Cough Gastrointestinal: Denies: Nausea, Vomiting Genitourinary: Denies: Dysuria Hematologic: Denies: Bruising Endocrine: Denies: Polydipsia Musculoskeletal: Denies: Neck Pain Neurological: Denies: Weakness Psych: Reports: Depression Physical Examination General Exam: Positive: Alert, Cooperative Eye Exam: Positive: PERRLA ENT Exam: Positive: Atraumatic Neck Exam: Positive: Supple; Negative: JVD Chest Exam: Positive: Clear to auscultation Heart Exam: Positive: Rate Normal; Negative: Rubs Telemetry: Positive: No significant arrhythmia Abdomen Exam: Positive: Normal bowel sounds Extremity Exam: Negative: Clubbing Skin Exam: Positive: Nl turgor and temperature Neuro Exam: Positive: Normal Gait, Strength at 5/5 X4 ext, Cranial Nerves 3-12 NL Psych Exam: Positive: Mental status NL Vital Signs Vital Signs Date Time Temp Pulse Resp B/P (MAP) Pulse Ox O2 Delivery O2 Flow Rate FiO2 09/14/19 08:53 138/87 09/14/19 06:44 96.7 76 14 99 Room Air Assessment/Plan Patient is 29 years old male w significant past medical history of obstructive sleep apnea, hypertension, hyperlipidemia, obesity, who was admitted in the hosp [facility] with depression. Patient stated that he was diagnosed with obstructive sleep apnea and he is waiting for CPAP on the next week. He denied any GI problem or dysuria. He denies fever, chills, nausea, vomiting, shortness of breath, palpitations, diarrhea or dysuria Problems (1) Depressive disorder, not elsewhere classified Status: Acute Problem Text: Treatment per psych team (2) Hypertension Status: Chronic Problem Text: Continue lisinopril 10 mg daily (3) Hyperlipidemia Status: Chronic Problem Text: Will check lipid panel Patient receives fenofibrate, which is not best choice for hyperlipidemia Will adjust medications after lipid panel (4) Obstructive sleep apnea Status: Chronic Problem Text: Continue CPAP daily at bedtime Plan / VTE VTE Prophylaxis Ordered?: No VTE Exclusion Pharmacological: At Low Risk for VTE CHANEL MEDINA DO Sep 14, 2019 16:49
[2019-09-14 17:24] VITALS: BP 134/63
[2019-09-14] MEDS: risperiDONE 1 MG TAB PO SCH (21:33)
[2019-09-14] MEDS: traZODone 100 MG TAB PO PRN (21:34)
[2019-09-15 06:20] VITALS: BP 145/86
[2019-09-15 07:24] LABS: CHOLESTEROL RISK RATIO 8.833 (<5)
[2019-09-15 07:35] LABS: HEMOGLOBIN A1c 5.4 %
[2019-09-15] MEDS: estradioL 1 MG TAB PO SCH ×2 (08:51→21:32)
[2019-09-15] MEDS: FENOFIBRATE 145 MG TAB (TRICOR) PO SCH (08:51)
[2019-09-15] MEDS: lisinopriL 20 MG TAB PO SCH (08:51)
[2019-09-15] MEDS: risperiDONE 1 MG TAB PO SCH ×2 (08:51→21:31)
[2019-09-15] MEDS: VENLAFAXINE **XR** 75MG CAPSULE PO SCH (08:51)
--- NOTE | 2019-09-15 09:58 | MHIPNPDOC ---
[facility] Progress Note Progress Note Inpatient Progress Note Colton Hunter MRN: N/A Date of : N/A Date of Service: 09/15/2019 History of Present Illness The patient a 21-year-old transgendered woman presents after reportedly having auditory hallucinations and suicidal thoughts, where she had tried to hang herself, but had stopped midway through and came into the hospital for admission. She is unable to describe any particular changes in what had brought her in or any issues that have cropped up since she left reporting that everything had been going well with no major social stressors. She reports no other changes other than these above. Interval History The patient's met with today. She reports she is doing much better and feeling much improved. She reports she got some sleep and that her moods and thoughts have become much more linear. She reports she finds the medication much more helpful. Her depression and anxiety have miraculously vanished. She has been doing well on the unit with no behavioral problems, had some trouble attending to groups but has been making some strides. Review Of Systems General: Denies fever or appetite changes Cardiovascular: Denies Chest pain or palpations GI: Denies Nausea, vomiting, or bowel changes Respiratory: Denies shortness of breath or cough Neuro: Denies dizziness, tremors Derm: Denies any rashes or pruritus : Denies any dysuria or urinary problems MSK: Denies any muscle tightness or stiffness HEENT: Denies any vision changes or headaches Psychotherapy None on this visit. Vital Signs Reviewed. Mental Status Examination General: Well dressed with good hygiene Speech: Spontaneous and fluid Thought processes: Linear and logical MSK: Smooth and coordinated gait, no signs of tremors or involuntary orofacial movements Thought content: Hopelesness Abstract reasoning, and computation: Intact Description of associations: Intact Description of abnormal or psychotic thoughts: Denies any suicidal or homicidal ideations. Denies auditory or visual hallucinations Judgment: fair Insight: fair Orientation: Alert and orientated 3 Cognition: Grossly normal Recent and remote memory: Intact Attention span and concentration: Intact Fund of knowledge: Adequate Mood: "okay" Affect: More reactive Diagnoses PTSD, chronic Borderline personality disorder MDD, unspecified Assessment and Plan PTSD/MDD: Continue Effexor 225 mg daily and continue risperidone 1 mg BID. Borderline personality disorder: On voluntary status, monitor for behavioral problems. Disposition Will be observed overnight and subsequently discharged if continues to be improved. Time Spent 15 minutes. Friday Vital Signs Vital Signs Date Time Temp Pulse Resp B/P (MAP) Pulse Ox O2 Delivery O2 Flow Rate FiO2 09/15/19 08:51 132/81 09/15/19 06:20 96.5 63 6 97 Room Air Laboratory Data 24H Labs Laboratory Tests 2 09/15/19 06:42: Estimated Mean Plasma Glucose 108, Hemoglobin A1c 5.4, Triglycerides Level 347H, Total Cholesterol 212H, LDL Cholesterol 119H, Non-HDL Cholesterol (LDL + VLDL) 188, Total HDL Cholesterol 24L, Cholesterol/HDL Ratio 8.833H Current Medications Current Medications Medications (Trade) Dose Ordered Sig/[place] Route PRN Reason Start Time Stop Time Status Last Admin Dose Admin Acetaminophen (Tylenol Tab) 650 mg Q6HP PRN PO HEADACHE or DISCOMFORT 09/13/19 20:00 Al Hydrox/Mg Hydrox/Simethicone (Mylanta) 30 ml Q4HP PRN PO HEARTBURN/INDIGESTION 09/13/19 20:00 Estradiol (Estrace) 1 mg BID PO 09/13/19 21:00 09/15/19 08:51 Fenofibrate (Tricor) 145 mg DAILY PO 09/14/19 09:00 09/15/19 08:51 Home Med (Med Rec Complete!) ASDIRECTED XX 09/13/19 18:00 09/13/19 17:56 DC Lisinopril (Prinivil) 20 mg DAILY PO 09/14/19 09:00 09/15/19 08:51 Magnesium Hydroxide (Milk Of Magnesia) 30 ml DAILYPRN PRN PO CONSTIPATION 09/13/19 20:00 Risperidone (RisperDAL) 0.5 mg BID PO 09/13/19 21:00 09/14/19 14:42 DC 09/14/19 08:53 Risperidone (RisperDAL) 1 mg BID PO 09/14/19 21:00 09/15/19 08:51 Trazodone HCl (Desyrel) 100 mg QHS PRN PO SLEEP 09/13/19 20:00 09/14/19 21:34 Venlafaxine HCl (Effexor Xr) 150 mg DAILY PO 09/14/19 09:00 09/14/19 14:43 DC 09/14/19 08:53 Venlafaxine HCl (Effexor Xr) 225 mg DAILY PO 09/15/19 09:00 09/15/19 08:51 Allergies Coded Allergies: amoxicillin (Verified Adverse Reaction, Intermediate, vomits, 05/26/19) clavulanic acid (Verified Adverse Reaction, Intermediate, vomits, 05/26/19) oxycodone (Verified Adverse Reaction, Intermediate, vomiting, 05/26/19) AKILAH HONG DO Sep 15, 2019 09:58
[2019-09-15 16:21] VITALS: BP 146/81
[2019-09-15] MEDS: traZODone 100 MG TAB PO PRN (21:31)
[2019-09-16 06:26] VITALS: BP 141/84
[2019-09-16] MEDS: risperiDONE 1 MG TAB PO SCH ×2 (08:52→20:49)
[2019-09-16] MEDS: VENLAFAXINE **XR** 75MG CAPSULE PO SCH (08:52)
[2019-09-16] MEDS: lisinopriL 20 MG TAB PO SCH (08:52)
[2019-09-16] MEDS: estradioL 1 MG TAB PO SCH ×2 (08:52→20:49)
[2019-09-16] MEDS: FENOFIBRATE 145 MG TAB (TRICOR) PO SCH (08:53)
--- NOTE | 2019-09-16 09:50 | MHIPNPDOC ---
[facility] Progress Note Progress Note Inpatient Progress Note Colton Hunter MRN: N/A Date of : N/A Date of Service: 09/16/2019 History of Present Illness The patient a 21-year-old transgendered woman presents after reportedly having auditory hallucinations and suicidal thoughts, where she had tried to hang herself, but had stopped midway through and came into the hospital for admission. She is unable to describe any particular changes in what had brought her in or any issues that have cropped up since she left reporting that everything had been going well with no major social stressors. She reports no other changes other than these above. Interval History The patient was met with today. She reports that she has no concerns as of this point. Reports her depression has greatly improved with good sleep and no auditory hallucinations. Requests discharge and reports that otherwise has been doing well. Reported per staff is doing better with groups and engaging more with treatment. Review Of Systems General: Denies fever or appetite changes Cardiovascular: Denies Chest pain or palpations GI: Denies Nausea, vomiting, or bowel changes Respiratory: Denies shortness of breath or cough Neuro: Denies dizziness, tremors Derm: Denies any rashes or pruritus : Denies any dysuria or urinary problems MSK: Denies any muscle tightness or stiffness HEENT: Denies any vision changes or headaches Psychotherapy None on this visit. Vital Signs Reviewed. Mental Status Examination General: Well dressed with good hygiene Speech: Spontaneous and fluid Thought processes: Linear and logical MSK: Smooth and coordinated gait, no signs of tremors or involuntary orofacial movements Thought content: Future orientated Abstract reasoning, and computation: Intact Description of associations: Intact Description of abnormal or psychotic thoughts: Denies any suicidal or homicidal ideation. Denies any auditory or visual hallucinations. Does not appear to be responding to internal stimuli. Does not appear to be endorsing any bizarre or paranoid ideation. Judgment: fair Insight: fair Orientation: Alert and orientated 3 Cognition: Grossly normal Recent and remote memory: Intact Attention span and concentration: Intact Fund of knowledge: Adequate Mood: "okay" Affect: Euthymic with a full range Diagnoses PTSD, chronic Borderline personality disorder MDD, unspecified Assessment and Plan PTSD/MDD: Continue Effexor 225 mg daily and continue risperidone 1 mg BID. Borderline personality disorder: On voluntary status, monitor for behavioral problems. Disposition Discharge tomorrow once discharge plan is made. Time Spent 15 minutes. Vital Signs Vital Signs Date Time Temp Pulse Resp B/P (MAP) Pulse Ox O2 Delivery O2 Flow Rate FiO2 09/16/19 08:52 141/84 09/16/19 06:26 97.4 80 18 98 Room Air Current Medications Current Medications Medications (Trade) Dose Ordered Sig/[place] Route PRN Reason Start Time Stop Time Status Last Admin Dose Admin Acetaminophen (Tylenol Tab) 650 mg Q6HP PRN PO HEADACHE or DISCOMFORT 09/13/19 20:00 Al Hydrox/Mg Hydrox/Simethicone (Mylanta) 30 ml Q4HP PRN PO HEARTBURN/INDIGESTION 09/13/19 20:00 Estradiol (Estrace) 1 mg BID PO 09/13/19 21:00 09/16/19 08:52 Fenofibrate (Tricor) 145 mg DAILY PO 09/14/19 09:00 09/16/19 08:53 Home Med (Med Rec Complete!) ASDIRECTED XX 09/13/19 18:00 09/13/19 17:56 DC Lisinopril (Prinivil) 20 mg DAILY PO 09/14/19 09:00 09/16/19 08:52 Magnesium Hydroxide (Milk Of Magnesia) 30 ml DAILYPRN PRN PO CONSTIPATION 09/13/19 20:00 Risperidone (RisperDAL) 0.5 mg BID PO 09/13/19 21:00 09/14/19 14:42 DC 09/14/19 08:53 Risperidone (RisperDAL) 1 mg BID PO 09/14/19 21:00 09/16/19 08:52 Trazodone HCl (Desyrel) 100 mg QHS PRN PO SLEEP 09/13/19 20:00 09/15/19 21:31 Venlafaxine HCl (Effexor Xr) 150 mg DAILY PO 09/14/19 09:00 09/14/19 14:43 DC 09/14/19 08:53 Venlafaxine HCl (Effexor Xr) 225 mg DAILY PO 09/15/19 09:00 09/16/19 08:52 Allergies Coded Allergies: amoxicillin (Verified Adverse Reaction, Intermediate, vomits, 05/26/19) clavulanic acid (Verified Adverse Reaction, Intermediate, vomits, 05/26/19) oxycodone (Verified Adverse Reaction, Intermediate, vomiting, 05/26/19) AKILAH HONG DO Sep 16, 2019 09:49
[2019-09-16] MEDS: traZODone 100 MG TAB PO PRN (20:49)
[2019-09-17 06:44] VITALS: BP 128/74
[2019-09-17 09:12] VITALS: BP 134/83
[2019-09-17] MEDS: VENLAFAXINE **XR** 75MG CAPSULE PO SCH (09:12)
[2019-09-17] MEDS: risperiDONE 1 MG TAB PO SCH (09:12)
[2019-09-17] MEDS: FENOFIBRATE 145 MG TAB (TRICOR) PO SCH (09:12)
[2019-09-17] MEDS: lisinopriL 20 MG TAB PO SCH (09:12)
[2019-09-17] MEDS: estradioL 1 MG TAB PO SCH (09:12)
--- NOTE | 2019-09-17 09:23 | MHDSPDOC ---
[facility] Discharge Summary Discharge Summary DATE OF ADMISSION: Sep 13, 2019 at 19:54 DATE OF DISCHARGE: 09/17/19 Discharge Colton Hunter MRN: N/A Date of : N/A Date of Service: 09/17/2019 Diagnoses PTSD, chronic Borderline personality disorder MDD, unspecified History of Present Illness The patient a 21-year-old transgendered woman presents after reportedly having auditory hallucinations and suicidal thoughts, where she had tried to hang herself, but had stopped midway through and came into the hospital for admission. She is unable to describe any particular changes in what had brought her in or any issues that have cropped up since she left reporting that everything had been going well with no major social stressors. She reports no other changes other than these above. Consultants Involved Hospitalist/PCP screening Treatment and Progress On The Unit The patient was admitted to the inpatient mental health unit subsequently increased on Effexor to 25 mg and risperidone to 1 mg b.i.d. She made positive response and improved with her sleep. She was observed with continuous positive performance. Did well with no major problems and no major behavioral issues. While on the unit suicidally quickly resolved after she had good sleep and made strong improvement. Requested discharge. Discharge Assessment 21-year-old transgendered individual presents for suicidal thoughts does well with increased Effexor and risperidone with no major behavioral problems. The patient at the time of discharge did not meet criteria for involuntary admission/extension due to having a normal mental status exam, fair insight into the situation, They are engaged in the discharge process, as well as being friendly and amenable in behavioral control and havent been engaging in any observed concerning behavior or ideation recently. They decline voluntary extension/admission at this time and must be discharged in good adilia, as Im unable to make a case for holding the patient against their will. They may have historical risk factors of admissions and other interactions with psychiatry however, those are not modifiable from a clinical perspective. The patient will need to be discharged in good adilia. Mental Status Examination General: Well dressed with good hygiene Speech: Spontaneous and fluid Thought processes: Linear and logical MSK: Smooth and coordinated gait, no signs of tremors or involuntary orofacial movements Thought content: Future orientated Abstract reasoning, and computation: Intact Description of associations: Intact Description of abnormal or psychotic thoughts: Denies any suicidal or homicidal ideation. Denies any auditory or visual hallucinations. Does not appear to be responding to internal stimuli. Does not appear to be endorsing any bizarre or paranoid ideation. Judgment: improved Insight: improved Orientation: Alert and orientated 3 Cognition: Grossly normal Recent and remote memory: Intact Attention span and concentration: Intact Fund of knowledge: Adequate Mood: "okay" Affect: Euthymic with a full range Follow Up The social work team worked during the predischarge meeting in order to evaluate for further issues of lethality address them fully before discharge. They worked on safety planning with the patient's family members in order to ensure that the patient will have a safe and effective discharge. Time Spent The amount of time spent in the coordination of care for this patient was approximately 45 minutes. Friday Vital Signs/I&Os Vital Signs Date Time Temp Pulse Resp B/P (MAP) Pulse Ox O2 Delivery O2 Flow Rate FiO2 09/17/19 09:12 134/83 09/17/19 06:44 97.3 81 14 98 Room Air Medications Scheduled Estradiol (Estradiol) 1 Mg Tablet, 1 MG PO BID, (Reported) Fenofibrate Nanocrystallized (Fenofibrate) 145 Mg Tablet, 145 MG PO DAILY, (Reported) Finasteride (Finasteride) 1 Mg Tablet, 1 MG PO DAILY, (Reported) Lisinopril (Lisinopril) 20 Mg Tablet, 20 MG PO DAILY for , (Reported) Risperidone (Risperdal) 1 Mg Tablet, 1 MG PO BID for thoughts for 7 Days, #14 Venlafaxine HCl (Venlafaxine HCl ER) 75 Mg Cap.er.24h, 225 MG PO DAILY for mood for 7 Days, #21 Scheduled PRN Trazodone HCl (Trazodone HCl) 100 Mg Tablet, 100 MG PO QHS PRN for SLEEP, (Reported) Allergies Coded Allergies: amoxicillin (Verified Adverse Reaction, Intermediate, vomits, 05/26/19) clavulanic acid (Verified Adverse Reaction, Intermediate, vomits, 05/26/19) oxycodone (Verified Adverse Reaction, Intermediate, vomiting, 05/26/19) AKILAH HONG DO September 17, 2019 09:23
[2019-09-17] MEDS ORDERED: RISP1TAB42 PO (09:29)
[2019-09-17] MEDS ORDERED: VENL75CA47 PO (09:29)
== END 2019-09-17 13:00 | disposition home or self-care (01) | DRG 755 ==
LOC: M ED 13:48 → M ED INP 19:54 → M PSY 20:25
PROVIDERS: ADMIT Psychiatry & Neurology Addiction Medicine; ATTEND Psychiatry & Neurology Addiction Medicine
DX: F43.12 Post-traumatic stress disorder, chronic (principal); I10 Essential (primary) hypertension; R45.851 Suicidal ideations; F60.3 Borderline personality disorder; F64.0 Transsexualism; G47.33 Obstructive sleep apnea (adult) (pediatric); E78.5 Hyperlipidemia, unspecified; F17.200 Nicotine dependence, unspecified, uncomplicated; E66.9 Obesity, unspecified; Z62.810 Personal history of physical and sexual abuse in childhood; Z79.899 Other long term (current) drug therapy; Z88.0 Allergy status to penicillin; Z88.5 Allergy status to narcotic agent; Z88.8 Allergy status to other drugs, medicaments and biological substances; Z68.36 Body mass index [BMI] 36.0-36.9, adult

== ENCOUNTER 2019-09-24 12:38 | Inpatient (IN) | payer OTHER ==
[~2019-09-24] VITALS: Ht 185.4 cm; Wt 127.9 kg
[~2019-09-24 12:38] MED LIST changes: +NICOTINE 21MG/24HR 1 EA TRANSDERMAL TD SCH; +RISP0.5T3 PO; +RISP1TAB42 PO; +VENL150C43 PO
[2019-09-24 13:38] LABS: BASO # 0.1 10^3/uL (0.0-0.2); BASO % 0.6 % (0.0-1.0); EOS % 0.3 % (0.0-3.0); HEMATOCRIT 40.8 % (42.0-52.0); HEMOGLOBIN 14.4 g/dl (13.5-17.5); LYMPH % 23.3 % (24.0-44.0); MEAN CORPUSCULAR HEMOGLOBIN 30.6 pg (27.0-33.0); MEAN CORPUSCULAR HGB CONC 35.3 g/dl (32.0-36.5); MEAN CORPUSCULAR VOLUME 86.8 fl (80.0-96.0); MONO # 0.6 10^3/uL (0.0-0.8); MONO % 7.1 % (0.0-5.0); NEUTROPHILS # 5.9 10^3/uL (1.5-8.5); NEUTROPHILS % 66.9 % (36.0-66.0); PLATELET COUNT, AUTOMATED 265 10^3/uL (150-450); WHITE BLOOD COUNT 8.8 10^3/uL (4.0-10.0)
[2019-09-24 14:10] LABS: AMPHETAMINES LEVEL URINE NEGATIVE (NEGATIVE); BARBITURATES URINE NEGATIVE (NEGATIVE); BENZODIAZEPINES URINE NEGATIVE (NEGATIVE); CANNABINOIDS URINE NEGATIVE (NEGATIVE); COCAINE METABOLITE URINE NEGATIVE (NEGATIVE); METHADONE URINE NEGATIVE (NEGATIVE); OPIATES URINE NEGATIVE (NEGATIVE); PHENCYCLIDINE URINE NEGATIVE (NEGATIVE)
[2019-09-24 14:17] LABS: ACETAMINOPHEN LEVEL < 2.0 UG/ML (10.0-30.0); ALBUMIN 3.9 GM/DL (3.2-5.2); ALT/SGPT 30 U/L (12-78); BILIRUBIN,DIRECT < 0.1 MG/DL (0.0-0.2); BILIRUBIN,TOTAL 0.4 MG/DL (0.2-1.0); BLOOD UREA NITROGEN 10 MG/DL (7-18); CALCIUM LEVEL 9.1 MG/DL (8.5-10.1); CARBON DIOXIDE LEVEL 27 MEQ/L (21-32); CHLORIDE LEVEL 106 MEQ/L (98-107); CREATININE FOR GFR 0.85 MG/DL (0.70-1.30); ETHYL ALCOHOL (ETHANOL) < 0.003 % (0.000-0.010); GLOMERULAR FILTRATION RATE > 60.0 (>60); GLUCOSE, FASTING 85 MG/DL (70-100); POTASSIUM SERUM 3.9 MEQ/L (3.5-5.1); SALICYLATE LEVEL 2.1 MG/DL (5.0-30.0); SODIUM LEVEL 138 MEQ/L (136-145); TOTAL PROTEIN 6.8 GM/DL (6.4-8.2)
[2019-09-24] MEDS ORDERED: VENL75CA47 PO (14:45)
[2019-09-24] MEDS ORDERED: RISP1TAB3 PO (14:45)
[2019-09-24] MEDS ORDERED: NICO21DI37 TD (14:48)
[2019-09-24] MEDS ORDERED: traZODone 100 MG TAB PO PRN (20:00)
[2019-09-24] MEDS ORDERED: MOM 30ML SUSPENSION UDC PO PRN (20:00)
[2019-09-24] MEDS ORDERED: ACETAMINOPHEN TAB 650MG DOSE (2X325MG) PO PRN (20:00)
[2019-09-24] MEDS ORDERED: MAALOX 30 ML SUSP *UDC PO PRN (20:00)
[2019-09-24] MEDS ORDERED: estradioL 1 MG TAB PO SCH (21:00)
[2019-09-24] MEDS ORDERED: risperiDONE 1 MG TAB PO SCH (21:00)
[2019-09-24 21:31] VITALS: BP 150/74
[2019-09-25 06:44] VITALS: BP 148/77
[2019-09-25] MEDS: NICOTINE 21MG/24HR 1 EA TRANSDERMAL TD SCH (09:00)
--- NOTE | 2019-09-25 09:07 | HPEPDOC ---
General Date of Admission September 24, 2019 at 19:49 Date of Service: September 25, 2019 Chief Complaint The patient is a 29-year-old who presented to the hospital with suicidal ideation History of Present Illness Patient is a 29-year-old male transitioned female with a PMHx MONSERRAT on CPAP, HTN, Hypertriglyceridemia, Morbid obesity, who presented to the hospital with complaints of increased stress, impulsive behavior and suicidal ideation. Patient was admitted under the care of psychiatry. Hospitalist service was consulted for medical screening evaluation. Currently the patient denies any headache, nausea, vomiting, chest pain, shortness breath, palpitations, abdominal pain, patient, diarrhea, or urinary discomfort. They have not experienced any recent fevers or chills. Patient reported their appetite has been fairly normal and denies any significant changes in their weight. Home Medications Scheduled Estradiol (Estradiol) 1 Mg Tablet, 1 MG PO BID, (Reported) Fenofibrate Nanocrystallized (Fenofibrate) 145 Mg Tablet, 145 MG PO DAILY, (Reported) Finasteride (Finasteride) 1 Mg Tablet, 1 MG PO DAILY, (Reported) Lisinopril (Lisinopril) 20 Mg Tablet, 20 MG PO DAILY for , (Reported) Nicotine (Nicotine Patch) 21 Mg Patch.td24, 21 MG TD DAILY, (Reported) Risperidone (Risperidone) 1 Mg Tablet, 1 MG PO BID, (Reported) Venlafaxine HCl (Venlafaxine HCl ER) 75 Mg Cap.er.24h, 225 MG PO DAILY, (Reported) Scheduled PRN Trazodone HCl (Trazodone HCl) 100 Mg Tablet, 100 MG PO QHS PRN for SLEEP, (Reported) Allergies Coded Allergies: amoxicillin (Verified Adverse Reaction, Intermediate, vomits, 05/26/19) clavulanic acid (Verified Adverse Reaction, Intermediate, vomits, 05/26/19) oxycodone (Verified Adverse Reaction, Intermediate, vomiting, 05/26/19) Past Medical History Medical History MONSERRAT on CPAP, HTN, Hypertriglyceridemia, Morbid obesity Surgical History Left fifth digit fracture; s/p pin Tonsillectomy Family History - Patient is unsure of any family history as they are adopted Social History - Denies the use of alcohol or illicit drugs; patient reports that there is a smoker for 5 years; <0.25 PPD - Denies recent travel or sick contacts - Lives with roommate - Occupation; patient works for [employer] Review of Systems Other systems 10 point review of systems complete, all negative otherwise stated in HPI Vital Signs - Vitals: BP 148/77, HR 75, RR 14, Sat 98%RA, Temp 97.3F - General: Lying in bed, Appears comfortable, AAOx3 - HEENT: NC, AT, PERRLA - CVS: RRR, +S1S2 - Lungs: Fair air entry bilaterally, No appreciable wheezing / rales / rhonchi - Abdomen: Soft, Non-distended, Non-tender, Obese - Extremities: No lower extremity edema, No calf tenderness - Neuro: No focal motor or sensory deficit - Skin: No visible rashes Laboratory Data Labs 24H Laboratory Tests 2 09/24/19 13:15: Immature Granulocyte % (Auto) 1.8, Neutrophils (%) (Auto) 66.9H, Lymphocytes (%) (Auto) 23.3L, Monocytes (%) (Auto) 7.1H, Eosinophils (%) (Auto) 0.3, Basophils (%) (Auto) 0.6, Neutrophils # (Auto) 5.9, Lymphocytes # (Auto) 2.0, Monocytes # (Auto) 0.6, Eosinophils # (Auto) 0.0, Basophils # (Auto) 0.1, Nucleated Red Blood Cells % (auto) 0.0, Anion Gap 5L, Glomerular Filtration Rate > 60.0, Calcium Level 9.1, Total Bilirubin 0.4, Direct Bilirubin < 0.1, Aspartate Amino Transf (AST/SGOT) 12, Alanine Aminotransferase (ALT/SGPT) 30, Alkaline Phosphata se 58, Total Protein 6.8, Albumin 3.9, Albumin/Globulin Ratio 1.34, Thyroid Stimulating Hormone (TSH) 0.820, Salicylates Level 2.1L, Acetaminophen Level < 2.0L, Ethyl Alcohol Level < 0.003 09/24/19 13:18: Urine Opiates Screen NEGATIVE, Urine Methadone Screen NEGATIVE, Urine Adalgisa turates Screen NEGATIVE, Urine Phencyclidine Screen NEGATIVE, Urine Amphetamines Screen NEGATIVE, Urine Benzodiazepines Screen NEGATIVE, Urine Cocaine Metabolite Screen NEGATIVE, Urine Cannabinoids Screen NEGATIVE CBC/BMP Laboratory Tests 09/24/19 13:15 Plan / VTE VTE Prophylaxis Ordered?: Yes Plan Plan Suicidal ideation / Depression - Currently admitted to the inpatient mental health unit under the care of psychiatry - Currently being managed by primary psychiatric team Transitioning to female - Patient is currently on Estradiol MONSERRAT on CPAP - may allow home CPAP use while inpatient HTN - BP moderately controlled - c/w Lisinopril Hypertriglyceridemia - c/w Fenofibrate Nicotine dependence - Currently is on Nicotine patch Morbid obesity - BMI of 37.3 - Complicating medical care DVT prophylaxis - c/w early ambulation 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
[2019-09-25] MEDS: lisinopriL 20 MG TAB PO SCH (09:22)
[2019-09-25] MEDS: FENOFIBRATE 145 MG TAB (TRICOR) PO SCH (09:23)
[2019-09-25] MEDS: VENLAFAXINE **XR** 75MG CAPSULE PO SCH (09:23)
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
[2019-09-25] MEDS ORDERED: PILL CUTTER 1 EACH XX PRN (14:45)
[2019-09-25 16:20] VITALS: BP 147/80
[2019-09-25] MEDS: estradioL 1 MG TAB PO SCH (20:12)
[2019-09-25] MEDS: cloZAPine 25 MG TAB (S0136) PO SCH (20:12)
[2019-09-25] MEDS ORDERED: risperiDONE 1 MG TAB PO SCH (21:00)
[2019-09-26 06:25] VITALS: BP 132/78
[2019-09-26] MEDS: NICOTINE 21MG/24HR 1 EA TRANSDERMAL TD SCH (09:00)
[2019-09-26] MEDS: FENOFIBRATE 145 MG TAB (TRICOR) PO SCH (09:17)
[2019-09-26] MEDS: VENLAFAXINE **XR** 75MG CAPSULE PO SCH (09:17)
[2019-09-26] MEDS: lisinopriL 20 MG TAB PO SCH (09:18)
[2019-09-26] MEDS: estradioL 1 MG TAB PO SCH ×2 (09:18→21:20)
--- NOTE | 2019-09-26 11:37 | MHIPNPDOC ---
[facility] Progress Note Progress Note Inpatient Progress Note Colton Hunter MRN: N/A Date of : N/A Date of Service: 09/26/2019 History of Present Illness The patient a 29-year-old man with an extensive history presents again after reportedly having a moment where he was "doing my taxes" where he had subsequently felt worse about situation and had attempted to hang himself. He subsequently regretted it and came into the hospital for care. He is admitted on a voluntary, when he arrives he reports that his depression is no longer salient and that he is doing "just fine." He reports that he has problems with impulsivity and that he wants to attempt to control this better. He reports no major psychosocial changes or other psychiatric symptom changes. Interval History The patient is met with today. She reports that she is doing much better and has been tolerating the clozapine without any problems. She reports that she is feeling much less impulsive and has no symptoms of depression, is interested in going home tomorrow. No behavioral problems. Generally, more engaged today in treatment than previous. Review Of Systems General: Denies fever or appetite changes Cardiovascular: Denies Chest pain or palpations GI: Denies Nausea, vomiting, or bowel changes Respiratory: Denies shortness of breath or cough Neuro: Denies dizziness, tremors Derm: Denies any rashes or pruritus : Denies any dysuria or urinary problems MSK: Denies any muscle tightness or stiffness HEENT: Denies any vision changes or headaches Psychotherapy None on this visit. Vital Signs Reviewed. Mental Status Examination General: Well dressed with good hygiene Speech: Spontaneous and fluid Thought processes: Linear and logical MSK: Smooth and coordinated gait, no signs of tremors or involuntary orofacial movements Thought content: Future orientated Abstract reasoning, and computation: Intact Description of associations: Intact Description of abnormal or psychotic thoughts: Denies any suicidal or homicidal ideation. Denies any auditory or visual hallucinations. Does not appear to be responding to internal stimuli. Does not appear to be endorsing any bizarre or paranoid ideation. Judgment: Chronically limited Insight: Chronically limited Orientation: Alert and orientated 3 Cognition: Grossly normal Recent and remote memory: Intact Attention span and concentration: Intact Fund of knowledge: Adequate Mood: "okay" Affect: Euthymic with a full range Diagnoses PTSD, chronic Situational disturbance Borderline personality disorder Assessment and Plan PTSD/borderline: Continue Effexor and Clozaril 12.5 mg daily. CBC tomorrow morning prior to discharge. The risks, benefits as well as common side effects as well as alternative treatments (including non-treatment) were discussed with the patient both in general and for their particular case. The patient selected this option out of a range. Disposition Discharge tomorrow if continues to improve. Time Spent 15 minutes. Friday Vital Signs Vital Signs Date Time Temp Pulse Resp B/P (MAP) Pulse Ox O2 Delivery O2 Flow Rate FiO2 09/26/19 09:18 141/74 09/26/19 06:25 97.0 74 14 98 Room Air Current Medications Current Medications Medications (Trade) Dose Ordered Sig/[place] Route PRN Reason Start Time Stop Time Status Last Admin Dose Admin Acetaminophen (Tylenol Tab) 650 mg Q6HP PRN PO HEADACHE or DISCOMFORT 09/24/19 20:00 Al Hydrox/Mg Hydrox/Simethicone (Mylanta) 30 ml Q4HP PRN PO HEARTBURN/INDIGESTION 09/24/19 20:00 Clozapine (Clozaril) 12.5 mg QHS PO 09/25/19 21:00 09/25/19 20:12 Estradiol (Estrace) 1 mg BID PO 09/24/19 21:00 09/25/19 06:33 DC Estradiol (Estrace) 1 mg BID PO 09/25/19 21:00 09/26/19 09:18 Fenofibrate (Tricor) 145 mg DAILY PO 09/25/19 09:00 09/26/19 09:17 Home Med (Med Rec Complete!) ASDIRECTED XX 09/24/19 15:00 09/24/19 14:50 DC Lisinopril (Prinivil) 20 mg DAILY PO 09/25/19 09:00 09/26/19 09:18 Magnesium Hydroxide (Milk Of Magnesia) 30 ml DAILYPRN PRN PO CONSTIPATION 09/24/19 20:00 Nicotine (Nicoderm Cq 21mg) 1 patch DAILY TD 09/24/19 09:00 09/25/19 06:33 DC Nicotine (Nicoderm Cq 21mg) 1 patch DAILY TD 09/25/19 09:00 Risperidone (RisperDAL) 1 mg BID PO 09/24/19 21:00 09/25/19 06:33 DC Risperidone (RisperDAL) 1 mg BID PO 09/25/19 21:00 09/25/19 14:33 DC Trazodone HCl (Desyrel) 100 mg QHS PRN PO SLEEP 09/24/19 20:00 Venlafaxine HCl (Effexor Xr) 225 mg DAILY PO 09/25/19 09:00 09/26/19 09:17 Allergies Coded Allergies: amoxicillin (Verified Adverse Reaction, Intermediate, vomits, 05/26/19) clavulanic acid (Verified Adverse Reaction, Intermediate, vomits, 05/26/19) oxycodone (Verified Adverse Reaction, Intermediate, vomiting, 05/26/19) AKILAH HONG DO September 26, 2019 11:37
[2019-09-26 15:37] VITALS: BP 152/72
[2019-09-26] MEDS: cloZAPine 25 MG TAB (S0136) PO SCH (21:20)
[2019-09-27 06:36] VITALS: BP 135/70
[2019-09-27] MEDS: NICOTINE 21MG/24HR 1 EA TRANSDERMAL TD SCH (09:00)
[2019-09-27 09:05] LABS: BASO # 0.1 10^3/uL (0.0-0.2); BASO % 0.8 % (0.0-1.0); EOS % 0.5 % (0.0-3.0); HEMATOCRIT 39.7 % (42.0-52.0); HEMOGLOBIN 13.8 g/dl (13.5-17.5); LYMPH # 2.4 10^3/uL (1.5-5.0); LYMPH % 37.5 % (24.0-44.0); MEAN CORPUSCULAR HEMOGLOBIN 30.9 pg (27.0-33.0); MEAN CORPUSCULAR HGB CONC 34.8 g/dl (32.0-36.5); MONO # 0.5 10^3/uL (0.0-0.8); MONO % 8.4 % (0.0-5.0); NEUTROPHILS # 3.2 10^3/uL (1.5-8.5); NEUTROPHILS % 50.9 % (36.0-66.0); PLATELET COUNT, AUTOMATED 238 10^3/uL (150-450); RED BLOOD COUNT 4.46 10^6/uL (4.30-6.10); WHITE BLOOD COUNT 6.3 10^3/uL (4.0-10.0)
[2019-09-27 09:19] VITALS: BP 128/64
[2019-09-27] MEDS: lisinopriL 20 MG TAB PO SCH (09:19)
[2019-09-27] MEDS: VENLAFAXINE **XR** 75MG CAPSULE PO SCH (09:19)
[2019-09-27] MEDS: FENOFIBRATE 145 MG TAB (TRICOR) PO SCH (09:19)
[2019-09-27] MEDS: estradioL 1 MG TAB PO SCH (09:19)
--- NOTE | 2019-09-27 09:53 | MHDSPDOC ---
[facility] Discharge Summary Discharge Summary DATE OF ADMISSION: September 24, 2019 at 19:49 DATE OF DISCHARGE: 09/27/2019 Discharge Colton Hunter MRN: N/A Date of : N/A Date of Service: 09/27/2019 Diagnoses PTSD, chronic Situational disturbance Borderline personality disorder copy diagnoses copy History of Present Illness The patient a 29-year-old man with an extensive history presents again after reportedly having a moment where he was "doing my taxes" where he had subsequently felt worse about situation and had attempted to hang himself. He subsequently regretted it and came into the hospital for care. He is admitted on a voluntary, when he arrives he reports that his depression is no longer salient and that he is doing "just fine." He reports that he has problems with impulsivity and that he wants to attempt to control this better. He reports no major psychosocial changes or other psychiatric symptom changes. Consultants Involved Hospitalist/PCP screening Treatment and Progress On The Unit The patient was admitted to the inpatient mental health unit resumed on her home meds. She did well with no signs of depression and did appear primarily impulsivity was to blame for her presentation. The patient engages well and generally had no behavioral problems. She was started on Clozaril 12.5 mg nightly instead of her risperidone as it had better evidence. She did well and tolerating the medications without any problems. She demonstrated no signs or symptoms of depression and subsequently was discharged. Discharge Assessment 29-year-old transgendered woman presents for impulsivity, augmentation of venlafaxine with Clozaril is completed to help reduce impulsivity and hopefully reduce admissions. The patient at the time of discharge did not meet criteria for involuntary admission/extension due to having a normal mental status exam, fair insight into the situation, They are engaged in the discharge process, as well as being friendly and amenable in behavioral control and havent been engaging in any observed concerning behavior or ideation recently. They decline voluntary extension/admission at this time and must be discharged in good adilia, as Im unable to make a case for holding the patient against their will. They may have historical risk factors of admissions and other interactions with psychiatry however, those are not modifiable from a clinical perspective. The patient will need to be discharged in good adilia. cause rolls completed to help reduce impulsivity and hopefully reduce admissions Mental Status Examination General: Well dressed with good hygiene Speech: Spontaneous and fluid Thought processes: Linear and logical MSK: Smooth and coordinated gait, no signs of tremors or involuntary orofacial movements Thought content: Future orientated Abstract reasoning, and computation: Intact Description of associations: Intact Description of abnormal or psychotic thoughts: Denies any suicidal or homicidal ideation. Denies any auditory or visual hallucinations. Does not appear to be responding to internal stimuli. Does not appear to be endorsing any bizarre or paranoid ideation. Judgment: fair Insight: fair Orientation: Alert and orientated 3 Cognition: Grossly normal Recent and remote memory: Intact Attention span and concentration: Intact Fund of knowledge: Adequate Mood: "okay" Affect: Euthymic with a full range Follow Up The social work team worked during the predischarge meeting in order to evaluate for further issues of lethality address them fully before discharge. They worked on safety planning with the patient's family members in order to ensure that the patient will have a safe and effective discharge. Patient placed on the clozapine REMS system, ANC drawn on day of discharge, note within normal limits. Time Spent The amount of time spent in the coordination of care for this patient was approximately 45 minutes. Friday Vital Signs/I&Os Vital Signs Date Time Temp Pulse Resp B/P (MAP) Pulse Ox O2 Delivery O2 Flow Rate FiO2 09/27/19 09:19 128/64 09/27/19 06:36 96.8 68 12 97 Room Air Laboratory Data Labs 24H Laboratory Tests 2 09/27/19 08:05: Immature Granulocyte % (Auto) 1.9, Neutrophils (%) (Auto) 50.9, Lymphocytes (%) (Auto) 37.5, Monocytes (%) (Auto) 8.4H, Eosinophils (%) (Auto) 0.5, Basophils (%) (Auto) 0.8, Neutrophils # (Auto) 3.2, Lymphocytes # (Auto) 2.4, Monocytes # (Auto) 0.5, Eosinophils # (Auto) 0.0, Basophils # (Auto) 0.1, Nucleated Red Blood Cells % (auto) 0.0 CBC/BMP Laboratory Tests 09/27/19 08:05 Medications Scheduled Clozapine (Clozapine) 25 Mg Tablet, 12.5 MG PO QHS for mood for 7 Days, #7 Estradiol (Estradiol) 1 Mg Tablet, 1 MG PO BID, (Reported) Fenofibrate Nanocrystallized (Fenofibrate) 145 Mg Tablet, 145 MG PO DAILY, (Reported) Finasteride (Finasteride) 1 Mg Tablet, 1 MG PO DAILY, (Reported) Lisinopril (Lisinopril) 20 Mg Tablet, 20 MG PO DAILY for , (Reported) Nicotine (Nicotine Patch) 21 Mg Patch.td24, 21 MG TD DAILY, (Reported) Venlafaxine HCl (Venlafaxine HCl ER) 75 Mg Cap.er.24h, 225 MG PO DAILY, (Reported) Scheduled PRN Trazodone HCl (Trazodone HCl) 100 Mg Tablet, 100 MG PO QHS PRN for SLEEP, (Reported) Allergies Coded Allergies: amoxicillin (Verified Adverse Reaction, Intermediate, vomits, 05/26/19) clavulanic acid (Verified Adverse Reaction, Intermediate, vomits, 05/26/19) oxycodone (Verified Adverse Reaction, Intermediate, vomiting, 05/26/19) AKILAH HONG DO September 27, 2019 09:53
[2019-09-27] MEDS ORDERED: CLOZ25TA3 PO (10:07)
== END 2019-09-27 12:30 | disposition home or self-care (01) | DRG 755 ==
LOC: M ED 12:38 → M ED INP 19:49 → M PSY 20:51
PROVIDERS: ADMIT Psychiatry & Neurology Addiction Medicine; ATTEND Psychiatry & Neurology Addiction Medicine
DX: F43.12 Post-traumatic stress disorder, chronic (principal); E66.01 Morbid (severe) obesity due to excess calories; R45.851 Suicidal ideations; F43.20 Adjustment disorder, unspecified; F60.3 Borderline personality disorder; Z79.899 Other long term (current) drug therapy; Z88.0 Allergy status to penicillin; Z88.5 Allergy status to narcotic agent; Z88.8 Allergy status to other drugs, medicaments and biological substances; G47.33 Obstructive sleep apnea (adult) (pediatric); I10 Essential (primary) hypertension; E78.1 Pure hyperglyceridemia; Z68.37 Body mass index [BMI] 37.0-37.9, adult

== ENCOUNTER 2020-02-10 15:42 | Observation (INO) | payer OTHER, BC ==
[~2020-02-10] VITALS: Ht 175.3 cm; Wt 130.7 kg
[~2020-02-10 15:42] MED LIST changes: +CLOZ25TA3 PO; +NICO21DI37 TD; -NICOTINE 21MG/24HR 1 EA TRANSDERMAL TD SCH; +RISP1TAB3 PO
[2020-02-10 16:23] LABS: BASO # 0.1 10^3/uL (0.0-0.2); BASO % 0.4 % (0.0-1.0); EOS # 0.1 10^3/uL (0.0-0.5); EOS % 0.5 % (0.0-3.0); HEMATOCRIT 40.1 % (42.0-52.0); HEMOGLOBIN 13.9 g/dl (13.5-17.5); LYMPH # 2.3 10^3/uL (1.5-5.0); LYMPH % 18.1 % (24.0-44.0); MEAN CORPUSCULAR HGB CONC 34.7 g/dl (32.0-36.5); MEAN CORPUSCULAR VOLUME 86.4 fl (80.0-96.0); MONO # 0.8 10^3/uL (0.0-0.8); MONO % 6.3 % (0.0-5.0); NEUTROPHILS # 9.6 10^3/uL (1.5-8.5); NEUTROPHILS % 73.6 % (36.0-66.0); PLATELET COUNT, AUTOMATED 274 10^3/uL (150-450); RED BLOOD COUNT 4.64 10^6/uL (4.30-6.10)
--- NOTE | 2020-02-10 16:26 | REPVR ---
PROCEDURE INFORMATION: Exam: CT Head Without Contrast Exam date and time: 02/10/2020 3:57 PM Age: 30 years old Clinical indication: Altered mental status/memory loss TECHNIQUE: Imaging protocol: Computed tomography of the head without contrast. Radiation optimization: All CT scans at this facility use at least one of these dose optimization techniques: automated exposure control; mA and/or kV adjustment per patient size (includes targeted exams where dose is matched to clinical indication); or iterative reconstruction. COMPARISON: No relevant prior studies available. FINDINGS: Brain: Unremarkable. No acute intracranial hemorrhage. No midline shift. Cerebral ventricles: No ventriculomegaly. Bones/joints: No acute fracture. Paranasal sinuses: Minimal mucosal thickening in the left maxillary sinus. Mastoid air cells: Visualized mastoid air cells are well aerated. Soft tissues: Unremarkable. IMPRESSION: No acute intracranial abnormality. Electronically signed by: Neelam Gaston On 02/10/2020 16:26:09 PM
[2020-02-10 16:51] LABS: ACETAMINOPHEN LEVEL < 2.0 UG/ML (10.0-30.0); ALBUMIN 3.5 GM/DL (3.2-5.2); ALT/SGPT 21 U/L (12-78); BILIRUBIN,DIRECT < 0.1 MG/DL (0.0-0.2); BILIRUBIN,TOTAL 0.2 MG/DL (0.2-1.0); BLOOD UREA NITROGEN 11 MG/DL (7-18); CALCIUM LEVEL 8.9 MG/DL (8.5-10.1); CARBON DIOXIDE LEVEL 29 MEQ/L (21-32); CHLORIDE LEVEL 107 MEQ/L (98-107); CK-MB VALUE MASS 1.2 NG/ML (<3.6); CPK CREATINE PHOSPHOKINASE 147 U/L (39-308); CREATININE FOR GFR 0.78 MG/DL (0.70-1.30); ETHYL ALCOHOL (ETHANOL) < 0.003 % (0.000-0.010); GLOMERULAR FILTRATION RATE > 60.0 (>60); GLUCOSE, FASTING 105 MG/DL (70-100); MB/CK RELATIVE INDEX 0.82 (< OR =4); POTASSIUM SERUM 3.7 MEQ/L (3.5-5.1); SALICYLATE LEVEL 1.7 MG/DL (5.0-30.0); SODIUM LEVEL 140 MEQ/L (136-145); TOTAL PROTEIN 6.4 GM/DL (6.4-8.2); TROPONIN I < 0.02 NG/ML (< 0.10)
[2020-02-10] MEDS ORDERED: LABETALOL 100MG/20ML VIAL IV STA (17:36)
[2020-02-10 17:41] LABS: AMPHETAMINES LEVEL URINE NEGATIVE (NEGATIVE); BARBITURATES URINE NEGATIVE (NEGATIVE); BENZODIAZEPINES URINE NEGATIVE (NEGATIVE); CANNABINOIDS URINE NEGATIVE (NEGATIVE); COCAINE METABOLITE URINE NEGATIVE (NEGATIVE); METHADONE URINE NEGATIVE (NEGATIVE); OPIATES URINE NEGATIVE (NEGATIVE); PHENCYCLIDINE URINE NEGATIVE (NEGATIVE)
[2020-02-10 18:13] LABS: OSMOLALITY SERUM 288 MOSM/KG (275-295)
[2020-02-10] MEDS ORDERED: ACETAMINOPHEN TAB 650MG DOSE (2X325MG) PO PRN (18:30)
[2020-02-10 18:35] LABS: CREATININE,RANDOM URINE 62.9 MG/DL; POTASSIUM RANDOM URINE 11.2 MEQ/L
--- NOTE | 2020-02-10 18:38 | HPEPDOC ---
General Date of Admission 02/10/2020 Date of Service: Feb 10, 2020 Attending Physician: HORTENSIA CONTI MD Chief Complaint This is a 30-year-old male transitioned female with a PMHx MONSERRAT on CPAP, HTN, Hyp ertriglyceridemia, Morbid obesity, anxiety and depression, who presented to the hospital with complaints of CP that's sharp in nature that started while at work and states that he had to sit down and blacked out. The patient doesnt remember if they had lost consciousness or not. Patient appears very confused and AAOx0 but according to the ER doctor, a co-worker who showed up with the patient sta dillon that they were doing restraints training and during that the patient complained of confusion. Currently the patient denies any headache, nausea, vomiting, shortness breath, palpitations, abdominal pain, diarrhea, or urinary discomfort. They have not experienced any recent fevers or chills. Denies suicidal ideation. ROS: All 12 points have been reviewed. see HPI PMHx: MONSERRAT on CPAP HTN Hypertriglyceridemia Morbid obesity Past surgical hx: Patient is unsure of any family history as they are adopted Social hx: Denies the use of alcohol or illicit drugs; patient reports that there is a smoker for 5 years; <0.25 PPD - Denies recent travel or sick contacts - Lives with roommate - Occupation; patient works for [employer] Family History - Unable to be obtained as patient reports confusion PHYSICAL EXAM: Vitals: SEE BELOW - General: Obese M--> F (identifies as female) lying in bed, Appears comfortable, AAOx0 - HEENT: NC, AT, PERRLA - CVS: RRR, +S1S2, PMI nondisplaced - Lungs: Fair air entry bilaterally, No appreciable wheezing / rales / rhonchi - Abdomen: Soft, Non-distended, Non-tender, Obese - Extremities: No lower extremity edema, No calf tenderness - Neuro: No focal motor or sensory deficit, pupils reactive to light; CN 2-12 wnl - Skin: No visible rashes Home Medications Scheduled Estradiol (Estradiol) 1 Mg Tablet, 1 MG PO QPM, (Reported) Estradiol (Estradiol) 1 Mg Tablet, 2 MG PO QAM, (Reported) Finasteride (Finasteride) 5 Mg Tablet, 2.5 MG PO DAILY, (Reported) Risperidone (Risperidone) 1 Mg Tablet, 1 MG PO QAM, (Reported) Risperidone (Risperidone) 1 Mg Tablet, 2 MG PO QHS, (Reported) Sertraline HCl (Sertraline HCl) 50 Mg Tablet, 50 MG PO DAILY, (Reported) Venlafaxine HCl (Venlafaxine HCl ER) 150 Mg Tab.er.24, 150 MG PO DAILY, (Reported) Miscellaneous Medications [med rec comment] , (Reported) unable to verify with patient used external list Allergies Coded Allergies: amoxicillin (Verified Adverse Reaction, Intermediate, vomits, 05/26/19) clavulanic acid (Verified Adverse Reaction, Intermediate, vomits, 05/26/19) oxycodone (Verified Adverse Reaction, Intermediate, vomiting, 05/26/19) A-FIB/CHADSVASC A-FIB History Current/History of A-Fib/PAF?: No Current PO Anticoag Therapy: No Vital Signs Vital Signs Date Time Temp Pulse Resp B/P (MAP) Pulse Ox O2 Delivery O2 Flow Rate FiO2 02/10/20 17:00 Room Air 02/10/20 16:55 Automatic Cuff (NIBP) Right Arm 02/10/20 15:44 99.4 107 17 98 Laboratory Data Labs 24H Laboratory Tests 2 02/10/20 15:53: Bedside Glucose (Misc Panel) 136H 02/10/20 16:03: Immature Granulocyte % (Auto) 1.1, Neutrophils (%) (Auto) 73.6H, Lymphocytes (%) (Auto) 18.1L, Monocytes (%) (Auto) 6.3H, Eosinophils (%) (Auto) 0.5, Basophils (%) (Auto) 0.4, Neutrophils # (Auto) 9.6H, Lymphocytes # (Auto) 2.3, Monocytes # (Auto) 0.8, Eosinophils # (Auto) 0.1, Basophils # (Auto) 0.1, Nucleated Red Blood Cells % (auto) 0.0, Anion Gap 4L, Glomerular Filtration Rate > 60.0, Osmo lality 288, Calcium Level 8.9, Total Bilirubin 0.2, Direct Bilirubin < 0.1, Aspartate Amino Transf (AST/SGOT) 7, Alanine Aminotransferase (ALT/SGPT) 21, Alkaline Phosphatase 64, Total Creatine Kinase 147, Creatine Kinase MB 1.2, Creatine Kinase MB Relative Index 0.82, Troponin I < 0.02, Total Protein 6.4, Albumin 3.5, Albumin/Globulin Ratio 1.2, Thyroid Stimulating Hormone (TSH) 0.860, Salicylates Level 1.7L, Acetaminophen Level < 2.0L, Ethyl Alcohol Level < 0.003 02/10/20 17:07: Urine Color STRAW, Urine Appearance CLEAR, Urine pH 7.0, Urine Specific [place] 1.008, Urine Protein NEGATIVE, Urine Glucose (UA) NEGATIVE, Urine Ketones NEGATIVE, Urine Blood NEGATIVE, Urine Nitrite NEGATIVE, Urine Bilirubin NEGATIVE, Urine Urobilinogen 0.2, Urine Leukocyte Esterase NEGATIVE, Urine WBC (Auto) 0, Urine RBC (Auto) 0, Urine Hyaline Casts (Auto) 0, Urine Bacteria (Auto) NEGATIVE, Urine Squamous Epithelial Cells 1, Urine Sperm (Auto) , Urine Random Osmolality 332L, Urine Random Creatinine 62.9, Urine Random Sodium 66, Urine Random Potassium 11.2, Urine Opiates Screen NEGATIVE, Urine Methadone Screen NEGATIVE, Urine Barbiturates Screen NEGATIVE, Urine Phencyclidine Screen NEGATIVE, Urine Amphetamines Screen NEGATIVE, Urine Benzodiazepines Screen NEGATIVE, Urine Cocaine Metabolite Screen NEGATIVE, Urine Cannabinoids Screen NEGATIVE 02/10/20 17:23: POC pH (Misc Panel) 7.409, POC Base Excess (Misc Panel) -1.0, POC Saturated Percent O2 (Misc) 97, POC pO2 (Misc Panel) 89.0, POC pCO2 (Misc Panel) 37.6, POC HCO3 (Misc Panel) 23.8, POC Total CO2 (Misc Panel) 25.0 CBC/BMP Laboratory Tests 02/10/20 16:03 Assessment/Plan This is a 30-year-old male transitioned female with a PMHx MONSERRAT on CPAP, HTN, Hypertriglyceridemia, Morbid obesity, depression, who presented to the hospital with complaints of CP that started while at work and states that he had to sit down and blacked out. All workup (EKG, Trop, CT head, UDS, UA) all wnl. This may be likely secondary to underlying psych issue. Pt will be admitted to [facility] and will continue to monitor mental status and will consider consulting Psych if continues to be confused. Plan / VTE VTE Prophylaxis Ordered?: Yes Plan Plan Altered mental status - possibly 2/2 psychiatric etiology, less likely 2/2 neurologic etiology - Multiple psychiatric admissions in the past - No focal neurologic deficits - Patient is oriented to person; - They report that they're unsure past medical history, however, have provided details of their medications during examination - Upon arrival, patient was noted to be unresponsive, however upon dropping patient's own hand on face they actively avoided hitting their face - CT head noted - negative - Will continue to monitor for changes Atypical Chest pain likely 2/2 to anxiety and underlying psych issue - Atypical chest pain sharp in nature unlikely cardiac in origin - EKG - sinus tachy - Troponin WNL - troponin trend pending - Will continue to monitor closely - Tylenol for pain PRN #Hypertension - Bp is 177/87 - Continue lisinopril 20mg PO qdaily - Will continue to monitor bp closely #Hypertriglyceridemia - continue home meds # Hx of MDD - Continue current home meds # Transitioning M-> F - Continue home estradiol #Tobacco dependence - nicotine patch DVT ppx: TEDS/SCDs GI ppx: none IVF: None Diet: 2g Na+ diet CODE STATUS: full Disposition: Admit for obs; likely Discharge tomorrow. If continues to be co nfused, will consider ordering psych consult GME ATTESTATION GME ATTESTATION My faculty preceptor for this patient encounter was physically present during the encounter and was fully available. All aspects of the patient interview, examination, medical decision making process, and medical care plan development were reviewed and approved by the faculty preceptor. The faculty preceptor is aware and concurs with the plan as stated in the body of this note and will attest to such by his/her cosignature. ATTENDING NOTE I, Hortensia Conti, have independently examined this patient and performed my own physical exam, as well as reviewed the documentation and edited where necessary. I have discussed in detail with the resident / student the findings and plan of treatment as documented by the resident / student and edited their note. I agree with their findings and treatment plan and have edited their documentation. I will continue to follow the patient during this hospital stay. More Thompson DO Feb 10, 2020 18:38 HORTENSIA CONTI MD Feb 11, 2020 07:09
[2020-02-10] MEDS ORDERED: ESTR1TAB PO (18:56)
[2020-02-10] MEDS ORDERED: VENL150T24 PO (18:56)
[2020-02-10] MEDS ORDERED: RISP1TAB3 PO ×2 (18:56)
[2020-02-10] MEDS ORDERED: FINA5TAB2 PO (18:56)
[2020-02-10] MEDS ORDERED: SERT50TA29 PO (18:56)
[2020-02-10] MEDS ORDERED: med rec comment (18:58)
[2020-02-10] MEDS ORDERED: NICOTINE 21MG/24HR 1 EA TRANSDERMAL TD ONE (19:00)
--- NOTE | 2020-02-10 20:57 | ECGEPIP ---
[facility] - ED Test Date: 2020-02-10 Pat Name: FERNANDO RASMUSSEN Department: Room: - Gender: Male Beef Splitter: : 1990 Requested By: CRISTINA Cade Order Number: [id number] Reading MD: Emelina Hopkins Measurements Intervals Sherman Rate: 105 P: 30 TX: 136 QRS: 42 QRSD: 81 T: 28 QT: 329 QTc: 436 Interpretive Statements SINUS TACHYCARDIA NONSPECIFIC T-WAVE ABNORMALITY ABNORMAL RHYTHM ECG SIMILAR 06/16/19 Electronically Signed on 02-10-2020 20:57:35 EDT by Emelina Hopkins
[2020-02-10] MEDS ORDERED: lisinopriL 20 MG TAB PO SCH (21:00)
[2020-02-10] MEDS ORDERED: risperiDONE 1 MG TAB PO SCH (21:00)
[2020-02-10] MEDS ORDERED: estradioL 1 MG TAB PO SCH (21:00)
[2020-02-10 21:02] VITALS: BP 152/112
[2020-02-10 21:07] VITALS: BP 168/102
[2020-02-10 21:30] VITALS: BP 160/90
[2020-02-10 22:13] VITALS: BP 160/90
[2020-02-11 06:05] VITALS: BP_SYST 121; BP_SYST 125; BP_DIAS 62; BP_DIAS 88
[2020-02-11 07:32] LABS: HEMATOCRIT 36.8 % (42.0-52.0); HEMOGLOBIN 12.9 g/dl (13.5-17.5); MEAN CORPUSCULAR HEMOGLOBIN 30.6 pg (27.0-33.0); MEAN CORPUSCULAR HGB CONC 35.1 g/dl (32.0-36.5); MEAN CORPUSCULAR VOLUME 87.4 fl (80.0-96.0); PLATELET COUNT, AUTOMATED 232 10^3/uL (150-450); RED BLOOD COUNT 4.21 10^6/uL (4.30-6.10)
[2020-02-11 07:57] LABS: BLOOD UREA NITROGEN 11 MG/DL (7-18); CALCIUM LEVEL 8.4 MG/DL (8.5-10.1); CARBON DIOXIDE LEVEL 27 MEQ/L (21-32); CHLORIDE LEVEL 108 MEQ/L (98-107); CREATININE FOR GFR 0.63 MG/DL (0.70-1.30); GLOMERULAR FILTRATION RATE > 60.0 (>60); GLUCOSE, FASTING 85 MG/DL (70-100); MAGNESIUM LEVEL 1.8 MG/DL (1.8-2.4); POTASSIUM SERUM 3.6 MEQ/L (3.5-5.1); SODIUM LEVEL 139 MEQ/L (136-145)
--- NOTE | 2020-02-11 08:54 | DS.PDOC ---
Discharge Summary General Date of Admission Feb 10, 2020 at 15:43 Date of Discharge 02/11/2020 Attending Physician: HORTENSIA CONTI MD Discharge Summary PROCEDURES PERFORMED DURING STAY: [None]. ADMITTING DIAGNOSES: 1. AMS DISCHARGE DIAGNOSES: 1. AMS resolved COMPLICATIONS/CHIEF COMPLAINT: Altered Mental Status. HISTORY OF PRESENT ILLNESS and HOSPITAL COURSE: This is a 30-year-old male transitioned female with a PMHx MONSERRAT on CPAP, HTN, Hypertriglyceridemia, Morbid obesity, anxiety and depression, who presented to the hospital with complaints of CP that's sharp in nature that started while at work and states that he had to sit down and blacked out. The patient doesnt remember if they had lost consciousness or not. Patient appears very confused and AAOx0 but according to the ER doctor, a co-worker who showed up with the patient states that they were doing restraints training and during that the patient complained of confusion. Currently the patient denies any headache, nausea, vomiting, shortness breath, palpitations, abdominal pain, diarrhea, or urinary discomfort. They have not experienced any recent fevers or chills. Denies suicidal ideation. Was admitted to the hospitalist service for confusion. EKG and Troponin trend x2 WNL. On second day admission, patient still felt confused and was informed that we will place a inpatient psych evaluation; s hortly after on re-examination, patient was fully oriented. She's AAOx3 and states that she feels great and ready to go home; her CP is gone and had no other acute concerns or issues. On discharge, pt is instructed to f/u with pcp and outpt psych within 7 days of hospital discharge and if her condition worsens to report back to ER. DISCHARGE MEDICATIONS: Please see below. ALLERGIES: Please see below. PHYSICAL EXAMINATION ON DISCHARGE: VITAL SIGNS: Please see below General: Obese M--> F (identifies as female) sitting in bed, appears comfortable HEENT: NC, AT, PERRLA CVS: RRR, +S1S2, PMI nondisplaced, no peripheral edema in bilateral lower extr Lungs: Fair air entry bilaterally, No appreciable wheezing / rales / rhonchi Abdomen: Soft, Non-distended, Non-tender, Obese Extremities: No lower extremity edema, No calf tenderness Neuro: AAOX3, No focal motor or sensory deficit, pupils reactive to light; CN 2- 12 wnl Skin: No visible rashes Psych: appropriate mood, flat affect but at baseline status LABORATORY DATA: Please see below. IMAGING: CT head w/o ctx: No intracranial abnormalities; EKG and tropx2 WNL ACTIVITY: As tolerated DIET: 2g Na DISCHARGE PLAN: D/C and follow up with Pcp within 7 days of hospital discharge DISCHARGE INSTRUCTIONS: 1. f/u with PCP and Outpt psych within 7 days 2. Remain compliant with treatment plan and medications 3. Return to the ER if you experience any problems DISCHARGE CONDITION: Stable TIME SPENT ON DISCHARGE: 25 minutes Vital Signs/I&Os Vital Signs Date Time Temp Pulse Resp B/P (MAP) Pulse Ox O2 Delivery O2 Flow Rate FiO2 02/11/20 06:05 97.2 76 20 125/88 (100) 96 Room Air I&O- Last 24 Hours up to 6 AM 02/11/20 06:00 Intake Total 120 ml Output Total 0 ml Balance 120 ml Laboratory Data Labs 24H Laboratory Tests 2 02/10/20 15:53: Bedside Glucose (Misc Panel) 136H 02/10/20 16:03: Immature Granulocyte % (Auto) 1.1, Neutrophils (%) (Auto) 73.6H, Lymphocytes (%) (Auto) 18.1L, Monocytes (%) (Auto) 6.3H, Eosinophils (%) (Auto) 0.5, Basophils (%) (Auto) 0.4, Neutrophils # (Auto) 9.6H, Lymphocytes # (Auto) 2.3, Monocytes # (Auto) 0.8, Eosinophils # (Auto) 0.1, Basophils # (Auto) 0.1, Nucleated Red Blood Cells % (auto) 0.0, Anion Gap 4L, Glomerular Filtration Rate > 60.0, Osmolality 288, Calcium Level 8.9, Total Bilirubin 0.2, Direct Bilirubin < 0.1, Aspartate Amino Transf (AST/SGOT) 7, Alanine Aminotransferase (ALT/SGPT) 21, Alkaline Phosphatase 64, Total Creatine Kinase 147, Creatine Kinase MB 1.2, Creatine Kinase MB Relative Index 0.82, Troponin I < 0.02, Total Protein 6.4, Albumin 3.5, Albumin/Globulin Ratio 1.2, Thyroid Stimulating Hormone (TSH) 0.860, Salicylates Level 1.7L, Acetaminophen Level < 2.0L, Ethyl Alcohol Level < 0.003 02/10/20 17:07: Urine Color STRAW, Urine Appearance CLEAR, Urine pH 7.0, Urine Specific [place] 1.008, Urine Protein NEGATIVE, Urine Glucose (UA) NEGATIVE, Urine Ketones NEGATIVE, Urine Blood NEGATIVE, Urine Nitrite NEGATIVE, Urine Bilirubin NEGATIVE, Urine Urobilinogen 0.2, Urine Leukocyte Esterase NEGATIVE, Urine WBC (Auto) 0, Urine RBC (Auto) 0, Urine Hyaline Casts (Auto) 0, Urine Bacteria (Auto) NEGATIVE, Urine Squamous Epithelial Cells 1, Urine Sperm (Auto) , Urine Random Osmolality 332L, Urine Random Creatinine 62.9, Urine Random Sodium 66, Urine Random Potassium 11.2, Urine Opiates Screen NEGATIVE, Urine Methadone Screen NEGATIVE, Urine Barbiturates Screen NEGATIVE, Urine Phencyclidine Screen NEGATIVE, Urine Amphetamines Screen NEGATIVE, Urine Benzodiazepines Screen NEGATIVE, Urine Cocaine Metabolite Screen NEGATIVE, Urine Cannabinoids Screen NEGATIVE 02/10/20 17:23: POC pH (Misc Panel) 7.409, POC Base Excess (Misc Panel) -1.0, POC Saturated Percent O2 (Misc) 97, POC pO2 (Misc Panel) 89.0, POC pCO2 (Misc Panel) 37.6, POC HCO3 (Misc Panel) 23.8, POC Total CO2 (Misc Panel) 25.0 02/11/20 01:57: Troponin I < 0.02 02/11/20 06:55: Nucleated Red Blood Cells % (auto) 0.0, Anion Gap 4L, Glomerular Filtration Rate > 60.0, Calcium Level 8.4L, Magnesium Level 1.8 CBC/BMP Laboratory Tests 02/10/20 16:03 02/11/20 06:55 FSBS Laboratory Tests Test 02/10/20 15:53 Range/Units Bedside Glucose (Misc Panel) 136 70-105 MG/DL Discharge Medications Scheduled Estradiol (Estradiol) 1 Mg Tablet, 1 MG PO QPM, (Reported) Estradiol (Estradiol) 1 Mg Tablet, 2 MG PO QAM, (Reported) Finasteride (Finasteride) 5 Mg Tablet, 2.5 MG PO DAILY, (Reported) Risperidone (Risperidone) 1 Mg Tablet, 1 MG PO QAM, (Reported) Risperidone (Risperidone) 1 Mg Tablet, 2 MG PO QHS, (Reported) Sertraline HCl (Sertraline HCl) 50 Mg Tablet, 50 MG PO DAILY, (Reported) Venlafaxine HCl (Venlafaxine HCl ER) 150 Mg Tab.er.24, 150 MG PO DAILY, (Reported) Miscellaneous Medications [med rec comment] , (Reported) unable to verify with patient used external list Allergies Coded Allergies: amoxicillin (Verified Adverse Reaction, Intermediate, vomits, 05/26/19) clavulanic acid (Verified Adverse Reaction, Intermediate, vomits, 05/26/19) oxycodone (Verified Adverse Reaction, Intermediate, vomiting, 05/26/19) GME ATTESTATION GME ATTESTATION My faculty preceptor for this patient encounter was physically present during the encounter and was fully available. All aspects of the patient interview, examination, medical decision making process, and medical care plan development were reviewed and approved by the faculty preceptor. The faculty preceptor is aware and concurs with the plan as stated in the body of this note and will attest to such by his/her cosignature. ATTENDING NOTE I, Hortensia Conti, have independently examined this patient and performed my own physical exam, as well as reviewed the documentation and edited where necessary. I have discussed in detail with the resident / student the findings and plan of treatment as documented by the resident / student and edited their note. I agree with their findings and treatment plan and have edited their documentation. I will continue to follow the patient during this hospital stay. Time spent on discharge 25 minutes More Thompson DO Feb 11, 2020 08:54 HOTRENSIA CONTI MD Feb 11, 2020 16:54
[2020-02-11] MEDS ORDERED: FINASTERIDE 5 MG TAB PO SCH (09:00)
[2020-02-11] MEDS ORDERED: lisinopriL 20 MG TAB PO SCH (09:00)
[2020-02-11] MEDS ORDERED: estradioL 1 MG TAB PO SCH (09:00)
[2020-02-11] MEDS ORDERED: SERTRALINE HCL 50 MG TAB PO SCH (09:00)
[2020-02-11] MEDS ORDERED: risperiDONE 1 MG TAB PO SCH (09:00)
[2020-02-11] MEDS ORDERED: VENLAFAXINE **XR** 75MG CAPSULE PO SCH (09:00)
== END 2020-02-11 12:20 | disposition home or self-care (01) ==
LOC: M ED 15:42 → M ED INP 15:43 → ENRESERV 19:18 → M MS5PR 21:19
PROVIDERS: ADMIT Internal Medicine; ATTEND Internal Medicine
DX: R41.82 Altered mental status, unspecified (principal); R07.9 Chest pain, unspecified; I10 Essential (primary) hypertension; E78.5 Hyperlipidemia, unspecified; F41.9 Anxiety disorder, unspecified; F32.9 Major depressive disorder, single episode, unspecified; E66.01 Morbid (severe) obesity due to excess calories; Z68.41 Body mass index [BMI] 40.0-44.9, adult; G47.33 Obstructive sleep apnea (adult) (pediatric); Z79.899 Other long term (current) drug therapy; Z79.890 Hormone replacement therapy; Z88.0 Allergy status to penicillin; Z88.5 Allergy status to narcotic agent; F17.210 Nicotine dependence, cigarettes, uncomplicated
CPT/HCPCS: 36415; 36600; 70450; 80048; 80076; 80307; 81001; 82550; 82553; 82570; 82803; 83735; 83930; 83935; 84133; 84300; 84443; 85025; 85027; 93005; 93041; 99285; G0480

== ENCOUNTER 2020-02-16 17:03 | Emergency (ER) | payer BC, OTHER ==
[~2020-02-16] VITALS: Ht 185.4 cm; Wt 126.6 kg
[~2020-02-16 17:03] MED LIST changes: +FINA5TAB2 PO; +VENL150T24 PO; +med rec comment
[2020-02-16] MEDS ORDERED: LISI-538 (17:55)
[2020-02-16] MEDS ORDERED: METOCLOPRAMIDE INJ 10MG/2ML VIAL (J2765 PER 1) IV ONE (18:45)
[2020-02-16] MEDS ORDERED: NS 1,000 ML IV ONE (18:45)
[2020-02-16] MEDS ORDERED: KETOROLAC 30 MG/ML 1ML VIAL IV ONE (18:45)
[2020-02-16 19:05] LABS: BASO # 0.1 10^3/uL (0.0-0.2); BASO % 0.3 % (0.0-1.0); EOS # 0.1 10^3/uL (0.0-0.5); EOS % 0.3 % (0.0-3.0); HEMATOCRIT 38.1 % (42.0-52.0); HEMOGLOBIN 13.3 g/dl (13.5-17.5); LYMPH # 2.4 10^3/uL (1.5-5.0); LYMPH % 15.8 % (24.0-44.0); MEAN CORPUSCULAR HEMOGLOBIN 30.2 pg (27.0-33.0); MEAN CORPUSCULAR HGB CONC 34.9 g/dl (32.0-36.5); MEAN CORPUSCULAR VOLUME 86.4 fl (80.0-96.0); MONO # 0.6 10^3/uL (0.0-0.8); MONO % 3.8 % (0.0-5.0); NEUTROPHILS # 11.8 10^3/uL (1.5-8.5); NEUTROPHILS % 79.1 % (36.0-66.0); PLATELET COUNT, AUTOMATED 258 10^3/uL (150-450); RED BLOOD COUNT 4.41 10^6/uL (4.30-6.10); WHITE BLOOD COUNT 14.9 10^3/uL (4.0-10.0)
--- NOTE | 2020-02-16 19:16 | REPVR ---
PROCEDURE INFORMATION: Exam: CT Head Without Contrast Exam date and time: 02/16/2020 7:02 PM Age: 30 years old Clinical indication: Other: Confusion TECHNIQUE: Imaging protocol: Computed tomography of the head without contrast. Radiation optimization: All CT scans at this facility use at least one of these dose optimization techniques: automated exposure control; mA and/or kV adjustment per patient size (includes targeted exams where dose is matched to clinical indication); or iterative reconstruction. COMPARISON: CT Head without contrast 02/10/2020 4:01 PM FINDINGS: Brain: No intracranial mass, mass effect or midline shift. No acute intracranial hemorrhage. No CT evidence of acute cortical infarct. Cerebral ventricles: Ventricles, cisterns, and sulci are normal in size for age. Bones/joints: No calvarial fracture or destructive process. Paranasal sinuses: Imaged paranasal sinuses are normally aerated. Mastoid air cells: Mastoid air cells and middle ear structures are normally aerated. Orbits: Imaged orbits are unremarkable. Soft tissues: No focal extracranial soft tissue swelling. IMPRESSION: No acute or concerning focal intracranial abnormality. Electronically signed by: Erick Silver On 02/16/2020 19:16:34 PM
[2020-02-16 19:25] LABS: ERYTHROCYTE SEDIMENTATION RATE 12 mm/hr (0-15)
[2020-02-16 19:47] LABS: BLOOD UREA NITROGEN 9 MG/DL (7-18); CALCIUM LEVEL 8.6 MG/DL (8.5-10.1); CARBON DIOXIDE LEVEL 26 MEQ/L (21-32); CHLORIDE LEVEL 107 MEQ/L (98-107); CREATININE FOR GFR 0.73 MG/DL (0.70-1.30); FREE THYROXINE INDEX 3.3 % (1.4-3.8); GLOMERULAR FILTRATION RATE > 60.0 (>60); GLUCOSE, FASTING 78 MG/DL (70-100); POTASSIUM SERUM 4.5 MEQ/L (3.5-5.1); SODIUM LEVEL 139 MEQ/L (136-145); T UPTAKE 27 % (33-40); THYROID STIMULATING HORMONE 0.993 uIU/ML (0.358-3.740); THYROXINE (T4) 12.4 UG/DL (4.5-12.0)
[2020-02-16 21:33] VITALS: BP 178/90
== END 2020-02-16 21:35 | disposition home or self-care (01) ==
LOC: M ED 17:03
DX: F44.81 Dissociative identity disorder (principal); I10 Essential (primary) hypertension; G47.33 Obstructive sleep apnea (adult) (pediatric); E78.5 Hyperlipidemia, unspecified; F64.0 Transsexualism; Z79.899 Other long term (current) drug therapy; Z79.890 Hormone replacement therapy; Z88.0 Allergy status to penicillin; Z88.8 Allergy status to other drugs, medicaments and biological substances; Z88.5 Allergy status to narcotic agent
CPT/HCPCS: 70450; 80048; 83735; 84436; 84443; 84479; 85025; 85652; 96374; 96375; 99284; J1885; J2765

== ENCOUNTER 2020-06-18 19:54 | Emergency (ER) | payer BC, OTHER ==
[~2020-06-18 19:54] MED LIST changes: +LISI-538; +RISP-7 PO; +RISP-8 PO; -RISP0.5T3 PO; -RISP1TAB3 PO
--- OUTSIDE RECORDS SUMMARY | 2020-06-18 19:59 | CCD | Continuity of Care Document ---
Author Author [facility] Organization [facility] Address [address] [place] [address] Phone Care Team Providers Care Manager Etl Name Role Phone Adore Loredo NP Unavailable Unavailable Allergies, Adverse Reactions, Alerts Substance Reaction Status Criticality POTASSIUM CLAVULANATE Active No Informa tion AMOXICILLIN TRIHYDRATE Active No Inform ation Medications Medication Instructions Dosage Effective Dates (start - stop) Sta tus Comments finasteride 1 mg tablet take 1 tablet by oral route 3 times ever y day 1 MG - Active Effexor XR 75 mg capsule,extended release take 1 capsu le by oral route 3 times every day with food 75 MG - Active lisinopril 10 mg tablet take 1 tablet by oral route every day 10 MG - Active fenofibrate 40 mg tablet take 2 tablet by oral route every day 80 MG - Active Problems Condition Effective Dates (start - stop) Clinical Status C omments Endocrine disorder, unspecified Gender Identity Disorder Gender Identity Disorder Encntr screen for dis of the bld/bld-form org/immun [facility] Encounter for screening for other metabolic disorders Encounter for screening for lipoid disorders Encounter for screening for oth suspected endocrine disorder 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 Human immunodeficiency virus [HIV] counseling Encounter for oth general cnsl and advice on contraception Other sex counseling Human immunodeficiency virus [HIV] counseling Endocrine disorder, unspecified Transsexualism Encounter for oth general cnsl and advice on contraception Procedures Procedure Date No Information Results Test Name Date and Time Measure Units Reference Range Abnormal Flag St atus Comments No Information Advance Directives Directive Yes / No Effective Date File Name No Information Encounters Encounter Description Practice Location Reason(s) For Visit Diagnose s Date Provider Providers Copied on Encounter [facility], [address], [place], [id number], [place] tel:[phone] DUSTY Reynolds No Information Loredo Adore. [address], [place], [id number], [place]. tel:[phone] [facility], [address], [place], [id number], [place] tel:[phone] DUSTY Reynolds No Information Loredo Adore. [address], [place], [id number], [place]. tel:[phone] [facility], [address], [place], [id number], [place] tel:[phone] DUSTY Williston Endocrine disorder, unspecifiedGender Identity Disorder Loredo Adore. [address], [place], [id number], [place]. tel:[phone] Referring Provider: Adore Loredo, [address] [place] [address], [id number]. tel:[phone] Provider: DUSTY Nurse/[place]. [facility], [address] [place] [address], [id number], [place] tel:[phone] DUSTY Reynolds Gender Identity Dis orderEncntr screen for dis of the bld/bld-form org/immun mechnsmEncounter for screening for other metabolic disordersEncounter for screening for lipoid disordersEncounter for screening for oth suspected endocrine disorder Manny mtz Adore. [address] [place] [address], [id number], [place]. tel:[phone] Referring Provider: Adore Loredo, [address] [place] [address], [id number]. tel:[phone] [facility], [address] [place] [address], [id number], [place] tel:[phone] DUSTY Williston Gender Identity Disorder Helen Bustilloley. [address] [place] [address], [id number], . tel:[phone] Referring Provider: Mindi Cervantes, [address] [place] [address], [id number]. tel:[phone] Provider: DUSTY Nurse/[place]. [facility], [address] [place] [address], [id number], tel:[phone] DUSTY Williston Gender Identity Disorder Snehal Hagen. [address] [place] [address], [id number], . tel:[phone] Referring Provider: Xiao Brian, [address] [place] [address], [id number]. tel:[phone] Provider: DUSTY Nurse/[place]. [facility], [address] [place] [address], [id number], tel:[phone] DUSTY Reynolds Gender Identity Dis orderHuman immunodeficiency virus [HIV] counselingEncounter for oth general cnsl and advice on contraception Helen Obregon. [address] [place] [address], [id number], . tel:[phone] Referring Provider: Mindi Cervantes, [address] [place] [address], [id number]. tel:[phone] [facility], [address] [place] [address], [id number], [place] tel:[phone] DUSTY Reynoldson Other sex counselin Seda immunodeficiency virus [HIV] counselingEndocrine disorder, unspecifiedTranssexualismEncounter for oth general cnsl and advice on contraception Villagomez. [address] [place] [address], [id number], [place]. tel:[phone] Referring Provider: Airam Stockton, [address] [place], [place], [id number]. tel:[phone] Family History Family Member Diagnosis Age At Onset No Information Immunizations Vaccine Date Status Comments No Information Payers Payer name Insurance type Covered libertarian ID Authorization(s ) YESSI Jade [id number] Social History Type Description Quantity Date Captured Comments Sex Male Smoking Status No Information Vital Signs Date / Time: Height Weight BMI Pulse Rate Blood Pressure Temperatu re Respiratory Rate Body Surface Area Head Circumference BMI percentile Pulse Ox In haled Ox No Information Chief Complaint And Reason For Visit No Information Reason For Referral Reason For Referral No Information Plan Of Treatment Date Type Action Status Goal Tobacco cessation counseling com pleted Goal Tobacco cessation counseling com pleted Goal Tobacco cessation counseling com pleted Appointment Colton Berg BOOKED History Of Present Illness Encounter Date Complaint History Of Present I llness No Information Functional Status Date Functional Assessment No Information Medications Administered Medication Instructions Dosage Effective Dates (start - stop) Sta tus Comments No Information Instructions Date Instruction Additional Informati on No Information Assessments Type Assessment Date No Information Goals Health Concern Goal Type Priority Status Date No Information Medical Equipment Description Device [place] Device Identifier Effective Eamon es (start - stop) Status No Information Mental Status Date Cognitive Assessment No Information Health Concerns Observation Date No Information Concern Status Date No Information Physical Examination Exam Findings Details No Information
--- OUTSIDE RECORDS SUMMARY | 2020-06-18 19:59 | CCD | Continuity of Care Document ---
Author Author [facility] Organization [facility] Address Unknown Phone Unavailable Care Team Providers Care Nurse Paralegal Name Role Phone Nel Begum Unavailable Unavailable Allergies, Adverse Reactions, Alerts Substance Reaction Status Criticality POTASSIUM CLAVULANATE Active No Informa tion AMOXICILLIN TRIHYDRATE Active No Inform ation Medications Medication Instructions Dosage Effective Dates (start - stop) Sta tus Comments finasteride 1 mg tablet take 1 tablet by oral route 3 times ever y day 1 MG - Active estradiol 1 mg tablet 2 tabs PO BID. Allow tab to dissolve under your tongue x 30 min before swallowing. Max dose 4mg. - 0 Active Effexor XR 75 mg capsule,extended release [...] screen for dis of the bld/bld-form org/immun [facility] [place] [facility] Encounter for screening for other metabolic disorders [...] Provider Providers Copied on Encounter [facility], [address] [place] [address], [id number], tel:[phone] DUSTY Reynolds No Information Akiko Neumann. [address] [place] [address], [id number], . tel:[phone] [facility], [address] [place] [address], [address] [place] [address], tel:[phone] DUSTY Reynolds No Information Facundo Avitia. [address] [place] [address], [address] [place] [address], . tel:[phone] [facility], [address] [place] [address], [address] [place] [address], tel:[phone] DUSTY [place] Endocrine disorder, unspecifiedGender Identity Disorder Facundo Avitia. [address] [place] [address], [address] [place] [address], [place]. tel:[phone] Referring Provider: Adore Loredo, [address] [place] [address], [id number]. tel:[phone] Provider: DUSTY Nurse/[place], [address] [place] [address], [address] [place] [address], tel:[phone] DUSTY Reynolds Gender Identity Dis orderEncntr screen for dis of the bld/bld-form org/immun mechnsmEncounter for screening for other metabolic disordersEncounter for screening for lipoid disordersEncounter for screening for oth suspected endocrine disorder Manny Avitia. [address] [place] [address], [address] [place] [address], [place]. tel:[phone] Referring Provider: Adore Loredo, [address] [place] [address], [address] [place] [address]. tel:[phone] [facility] [place], [address], [place], [id number], [place] tel:[phone] DUSTY [place] Gender Identity Disorder Helen Bustilloley. [address], [place], [id number], [place]. tel:[phone] Referring Provider: Mindi Cervantes, [address] [place] [address], [id number]. tel:[phone] Provider: DUSTY Nurse/[place]. [facility] [place], [address], [place], [id number], [place] tel:[phone] DUSTY [place] Gender Identity Disorder Snehal Hagen. [address] [place] [address], [id number], . tel:[phone] Referring Provider: Xiao Brian, [address] [place] [address], [id number]. tel:[phone] Provider: DUSTY Nurse/[place]. [facility] [place], [address], [place], [id number], [place] tel:[phone] DUSTY [place] Gender Identity Dis orderHuman immunodeficiency virus [HIV] counselingEncounter for oth general cnsl and advice on contraception Helen Mindi. [address] [place] [address], [id number], [place]. tel:[phone] Referring Provider: Mindi Cervantes, [address] [place], [place], [id number]. tel:[phone] [facility] [place], [address] [place] [address], [id number], [place] tel:[phone] DUSTY Reynoldson Other sex counselin Seda immunodeficiency virus [HIV] counselingEndocrine disorder, unspecifiedTranssexualismEncounter for oth general cnsl and advice on contraception Villagomez. [address] [place] [address], [id number], [place]. tel:[phone] Referring Provider: Airam Stock[place], [address] [place], [place], [id number]. tel:[phone] Family History Family Member Diagnosis Age At Onset No Information Immunizations Vaccine Date Status Comments No Information Payers Payer name Insurance type Covered constitution party ID Authorization(s ) [employer] [facility] [id number] Social History Type Description Quantity Date Captured Comments Alcohol Use Details Unknown Caffeine Use Details Unknown Tobacco Use Status Smoking Status Light tobacco smoker Sex Male Vital Signs Date / Time: Height Weight [...] Date No Information Medical Equipment Description Device [place] Device Identifier Effective Eamon es (start - stop) Status No Information Mental Status Date Cognitive Assessment No Information Health Concerns Observation Date No Information Concern Status Date No Information Physical Examination Exam Findings Details No Information
--- OUTSIDE RECORDS SUMMARY | 2020-06-18 19:59 | CCD ---
Author Author [facility] Organization [facility] Address Unknown Phone Unavailable Care Team Providers Care Senior [employer] Programmer Name Role Phone Alisha Cordon MD Unavailable Unavailable Alisha Cordon MD Unavailable Unavailable Alisha Cordon MD Unavailable Unavailable Alisha Cordon MD Unavailable Unavailable Alisha Cordon MD Unavailable Unavailable Alisha Cordon MD Unavailable Unavailable Alisha Cordon MD Unavailable Unavailable Alisha Cordon MD Unavailable Unavailable Alisha Cordon MD Unavailable Unavailable Alisha Cordon MD Unavailable Unavailable Alisha Cordon MD Unavailable Unavailable Alisha Cordon MD Unavailable Unavailable Alisha Cordon MD Unavailable Unavailable Alisha Cordon MD Unavailable Unavailable Alisha Cordon MD Unavailable Unavailable Alisha Cordon MD Unavailable Unavailable Alisha Cordon MD Unavailable Unavailable Alisha Cordon MD Unavailable Unavailable Alisha Cordon MD Unavailable Unavailable Alisha Cordon MD Unavailable Unavailable Alisha Cordon MD Unavailable Unavailable Bravo, Alisha Arnold MD Unavailable Unavailable Bravo, Alisha Arnold MD Unavailable Unavailable Bravo, Alisha Arnold MD Unavailable Unavailable Bravo, Alisha Arnold MD Unavailable Unavailable Bravo, Alisha Arnold MD Unavailable Unavailable Bravo, Alisha Arnold MD Unavailable Unavailable Bravo, Alisha Arnold MD Unavailable Unavailable Bravo, Alisha Arnold MD Unavailable Unavailable Bravo, Alisha Arnold MD Unavailable Unavailable Bravo, Alisha Arnold MD Unavailable Unavailable Bravo, Alisha Arnold MD Unavailable Unavailable Bravo, Alisha Arnold MD Unavailable Unavailable Bravo, Alisha Arnold MD Unavailable Unavailable Bravo, Alisha Arnold MD Unavailable Unavailable Bravo, Alisha Arnold MD Unavailable Unavailable Bravo, Alisha Arnold MD Unavailable Unavailable Bravo, Alisha Arnold MD Unavailable Unavailable Bravo, Alisha Arnold MD Unavailable Unavailable Bravo, Alisha Arnold MD Unavailable Unavailable Bravo, Alisha Arnold MD Unavailable Unavailable Bravo, Alisha Arnold MD Unavailable Unavailable Bravo, Alisha Arnold MD Unavailable Unavailable Bravo, Alisha Arnold MD Unavailable Unavailable Bravo, Alisha Arnold MD Unavailable Unavailable Bravo, Alisha Arnold MD Unavailable Unavailable Bravo, Alisha Arnold MD Unavailable Unavailable Bravo, Alisha Arnold MD Unavailable Unavailable Bravo, A Catalina CARRASQUILLO Unavailable Unavailable Bravo, Alisha Arnold MD Unavailable Unavailable Bravo, Alisah Arnold MD Unavailable Unavailable Bravo, Alisha Arnold MD Unavailable Unavailable Bravo, Alisha Arnold MD Unavailable Unavailable Bravo, Alisha Arnold MD Unavailable Unavailable Bravo, Alisha Arnold MD Unavailable Unavailable Bravo, Alisha Arnold MD Unavailable Unavailable Bravo, Alisha Arnold MD Unavailable Unavailable Bravo, Alisha Arnold MD Unavailable Unavailable Bravo, Alisha Arnold MD Unavailable Unavailable Bravo, Alisha Arnold MD Unavailable Unavailable Bravo, Alisha Arnold MD Unavailable Unavailable Bravo, Alisha Arnold MD Unavailable Unavailable Bravo, Alisha Arnold MD Unavailable Unavailable Bravo, Alisha Arnold MD Unavailable Unavailable Bravo, Alisha Arnold MD Unavailable Unavailable Bravo, Alisha Arnold MD Unavailable Unavailable Bravo, Alisha Arnold MD Unavailable Unavailable Bravo, Alisha Arnold MD Unavailable Unavailable Bravo, Alisha Arnold MD Unavailable Unavailable Bravo, Alisha Arnold MD Unavailable Unavailable Bravo, Alisha Arnold MD Unavailable Unavailable Bravo, Alisha Arnold MD Unavailable Unavailable Bravo, Alisha Arnold MD Unavailable Unavailable Bravo, Alisha Arnold MD Unavailable Unavailable Bravo, Alisha Arnold MD Unavailable Unavailable DAMARIS, E RUBEN FOOD SERVICE HELPER Unavailable Unavailable DAMARIS, E RUBEN FOOD SERVICE HELPER Unavailable Unavailable DAMARIS, E RUBEN FOOD SERVICE HELPER Unavailable Unavailable DAMARIS, E RUBEN FOOD SERVICE HELPER Unavailable Unavailable DAMARIS, E RUBEN FOOD SERVICE HELPER Unavailable Unavailable DAMARIS, E RUBEN FOOD SERVICE HELPER Unavailable Unavailable DAMARIS, E RUBEN FOOD SERVICE HELPER Unavailable Unavailable DAAMRIS, E RUBEN FOOD SERVICE HELPER Unavailable Unavailable DAMARIS, E RUBEN FOOD SERVICE HELPER Unavailable Unavailable DAMARIS, E RUBEN FOOD SERVICE HELPER Unavailable Unavailable DAMARIS, E RUBEN FOOD SERVICE HELPER Unavailable Unavailable DAMARIS, E RUBEN FOOD SERVICE HELPER Unavailable Unavailable DAMARIS, E RUBEN FOOD SERVICE HELPER Unavailable Unavailable Hopkins, Ruben SUPERVISOR PACKING SUPERVISOR PACKING Unavailable Unavailable PRYBYLOWSKI, E UMER PA Unavailable Unavailable PRYBYLOWSKI, E UMER PA Unavailable Unavailable PRYBYLOWSKI, E UMER PA Unavailable Unavailable PRYBYLOWSKI, E UMER PA Unavailable Unavailable PRYBYLOWSKI, E UMER PA Unavailable Unavailable PRYBYLOWSKI, E UMER PA Unavailable Unavailable PRYBYLOWSKI, E UMER PA Unavailable Unavailable PRYBYLOWSKI, E UMER PA Unavailable Unavailable PRYBYLOWSKI, E UMER PA Unavailable Unavailable PRYBYLOWSKI, E UMER PA Unavailable Unavailable PRYBYLOWSKI, E UMER PA Unavailable Unavailable PRYBYLOWSKI, E UMER PA Unavailable Unavailable PRYBYLOWSKI, E UMER PA Unavailable Unavailable PRYBYLOWSKI, E UMER PA Unavailable Unavailable PRYBYLOWSKI, E UMER PA Unavailable Unavailable PRYBYLOWSKI, E UMER PA Unavailable Unavailable Hopkins, F Ruben SUPERVISOR PACKING-BC Unavailable Unavailable Hopkins, F Ruben SUPERVISOR PACKING-BC Unavailable Unavailable Hopkins, F Ruben SUPERVISOR PACKING-BC Unavailable Unavailable Hopkins, F Ruben SUPERVISOR PACKING-BC Unavailable Unavailable Hopkins, F Ruben SUPERVISOR PACKING-BC Unavailable Unavailable Hopkins, F Ruben SUPERVISOR PACKING-BC Unavailable Unavailable Hopkins, F Ruben SUPERVISOR PACKING-BC Unavailable Unavailable Hopkins, F Ruben SUPERVISOR PACKING-BC Unavailable Unavailable Hopkins, F Ruben SUPERVISOR PACKING-BC Unavailable Unavailable Hopkins, F Ruben SUPERVISOR PACKING-BC Unavailable Unavailable Hopkins, F Ruben SUPERVISOR PACKING-BC Unavailable Unavailable Hopkins, F Ruben SUPERVISOR PACKING-BC Unavailable Unavailable Hopkins, F Ruben SUPERVISOR PACKING-BC Unavailable Unavailable Hopkins, F Ruben SUPERVISOR PACKING-BC Unavailable Unavailable Hopkins, F Ruben SUPERVISOR PACKING-BC Unavailable Unavailable Hopkins, F Ruben SUPERVISOR PACKING-BC Unavailable Unavailable Hopkins, F Ruben SUPERVISOR PACKING-BC Unavailable Unavailable Hopkins, F Ruben SUPERVISOR PACKING-BC Unavailable Unavailable Hopkins, F Ruben SUPERVISOR PACKING-BC Unavailable Unavailable Hopkins, F Ruben SUPERVISOR PACKING-BC Unavailable Unavailable Hopkins, F Ruben SUPERVISOR PACKING-BC Unavailable Unavailable Hopkins, F Ruben SUPERVISOR PACKING-BC Unavailable Unavailable [facility], SSCORDO SCORDO PA ANISHA Unavailable Unavaila ble Loredo, Adore Unavailable Unavailable Loredo, Adore Unavailable Unavailable Loredo, Adore Unavailable Unavailable Green FOOD SERVICE HELPER FOOD SERVICE HELPER, Emmie Unavailable Unavailable Green FOOD SERVICE HELPER FOOD SERVICE HELPER, Emmie Unavailable Unavailable Green FOOD SERVICE HELPER FOOD SERVICE HELPER, Emmie Unavailable Unavailable Corinne Brian PA Unavailable Unavailable Corinne Brian PA Unavailable Unavailable Corinne Brian PA Unavailable Unavailable Corinne Brianey PA Unavailable Unavailable Corinne Brianey PA Unavailable Unavailable Corinne Brian Xiao PA Unavailable Unavailable Corinne Brian Xiao PA Unavailable Unavailable Corinne Brian Xiao PA Unavailable Unavailable Corinne Brian Xiao PA Unavailable Unavailable Corinne Brian Xiao PA Unavailable Unavailable Corinne Brian Xiao PA Unavailable Unavailable Snehal, Corinne Xiao PA Unavailable Unavailable Corinne Brian Xiao PA Unavailable Unavailable Corinne Brian Xiao PA Unavailable Unavailable Corinne Brianey PA Unavailable Unavailable Corinne Brianey PA Unavailable Unavailable Corinne Brianey PA Unavailable Unavailable Corinne Brianey PA Unavailable Unavailable Snehal, Corinne Avalosey PA Unavailable Unavailable Snehal, Corinne Xiao PA Unavailable Unavailable RichmondCorinne Xiao PA Unavailable Unavailable RichmondCorinne Xiao PA Unavailable Unavailable Scordo, M Anisha PA Unavailable Unavailable Scordo, M Anisha PA Unavailable Unavailable Scordo, M Anisha PA Unavailable Unavailable Scordo, M Anisha PA Unavailable Unavailable Scordo, M Anisha PA Unavailable Unavailable Scordo, M Anisha PA Unavailable Unavailable Scordo, M Anisha PA Unavailable Unavailable Scordo, M Anisha PA Unavailable Unavailable Scordo, M Anisha PA Unavailable Unavailable Scordo, M Anisha PA Unavailable Unavailable Scordo, M Anisha PA Unavailable Unavailable Scordo, M Anisha PA Unavailable Unavailable Scordo, M Anisha PA Unavailable Unavailable Scordo, M Anisha PA Unavailable Unavailable Scordo, M Anisha PA Unavailable Unavailable Scordo, M Anisha PA Unavailable Unavailable Scordo, M Anisha PA Unavailable Unavailable Scordo, M Anisha PA Unavailable Unavailable Scordo, M Anisha PA Unavailable Unavailable Scordo, M Anisha PA Unavailable Unavailable Scordo, M Anisha PA Unavailable Unavailable Scordo, M Anisha PA Unavailable Unavailable Scordo, M Anisha PA Unavailable Unavailable Scordo, M Anisha PA Unavailable Unavailable Scordo, M Anisha PA Unavailable Unavailable Scordo, M Anisha PA Unavailable Unavailable Scordo, M Anisha PA Unavailable Unavailable Scordo, M Anisha PA Unavailable Unavailable Scordo, M Anisha PA Unavailable Unavailable Scordo, M Anisha PA Unavailable Unavailable Scordo, M Anisha PA Unavailable Unavailable Scordo, M Anisha PA Unavailable Unavailable Scordo, M Anisha PA Unavailable Unavailable Scordo, M Anisha PA Unavailable Unavailable Scordo, M Anisha PA Unavailable Unavailable Scordo, M Anisha PA Unavailable Unavailable Scordo, M Anisha PA Unavailable Unavailable Scordo, M Anisha PA Unavailable Unavailable Scordo, M Anisha PA Unavailable Unavailable Scordo, M Anisha PA Unavailable Unavailable Scordo, M Anisha PA Unavailable Unavailable Scordo, M Anisha PA Unavailable Unavailable Jamar, Ariella Airam FOOD SERVICE HELPER Unavailable Unavailable Jamar, Ariella Airam FOOD SERVICE HELPER Unavailable Unavailable Jamar, Ariella Airam FOOD SERVICE HELPER Unavailable Unavailable Jamar, Ariella Airam FOOD SERVICE HELPER Unavailable Unavailable Jamar, Ariella Airam FOOD SERVICE HELPER Unavailable Unavailable Jamar, Ariella Airam FOOD SERVICE HELPER Unavailable Unavailable Jamar, Ariella Airam FOOD SERVICE HELPER Unavailable Unavailable Jamar, Ariella Airam FOOD SERVICE HELPER Unavailable Unavailable Jamar, Ariella Airam FOOD SERVICE HELPER Unavailable Unavailable Jamar, Ariella Airam FOOD SERVICE HELPER Unavailable Unavailable LETTIERE, A MIGUEL ÁNGEL PA Unavailable Unavailable LETTIERE, A MIGUEL ÁNGEL PA Unavailable Unavailable LETTIERE, A MIGUEL ÁNGEL PA Unavailable Unavailable LETTIERE, A MIGUEL ÁNGEL PA Unavailable Unavailable LETTIERE, A MIGUEL ÁNGEL PA Unavailable Unavailable LETTIERE, A MIGUEL ÁNGEL PA Unavailable Unavailable LETTIERE, A MIGUEL ÁNGEL PA Unavailable Unavailable LETTIERE, A MIGUEL ÁNGEL PA Unavailable Unavailable LETTIERE, A MIGUEL ÁNGEL PA Unavailable Unavailable LETTIERE, A MIGUEL ÁNGEL PA Unavailable Unavailable LETTIERE, A MIGUEL ÁNGEL PA Unavailable Unavailable LETTIERE, A MIGUEL ÁNGEL PA Unavailable Unavailable LETTIERE, A MIGUEL ÁNGEL PA Unavailable Unavailable LETTIERE, A MIGUEL ÁNGEL PA Unavailable Unavailable LETTIERE, A MIGUEL ÁNGEL PA Unavailable Unavailable LETTIERE, A MIGUEL ÁNGEL PA Unavailable Unavailable LETTIERE, A MIGUEL ÁNGEL PA Unavailable Unavailable LETTIERE, A MIGUEL ÁNGEL PA Unavailable Unavailable LETTIERE, A MIGUEL ÁNGEL PA Unavailable Unavailable LETTIERE, A MIGUEL ÁNGEL PA Unavailable Unavailable LETTIERE, A MIGUEL ÁNGEL PA Unavailable Unavailable LETTIERE, A MIGUEL ÁNGEL PA Unavailable Unavailable LETTIERE, A MIGUEL ÁNGEL PA Unavailable Unavailable LETTIERE, A MIGUEL ÁNGEL PA Unavailable Unavailable LETTIERE, A MIGUEL ÁNGEL PA Unavailable Unavailable LETTIERE, A MIGUEL ÁNGEL PA Unavailable Unavailable LETTIERE, A MIGUEL ÁNGEL PA Unavailable Unavailable LETTIERE, Alisha DEL ROSARIO PA Unavailable Unavailable LETTIERE, Alisha ZAPATA Unavailable Unavailable Re-disclosure Warning The records that you are about to access may contain information from federally-assisted alcohol or drug abuse programs. If such information is present, then the following federally mandated warning applies: This information has been disclosed to you from records protected by federal confidentiality rules (42 CFR part 2). The federal rules prohibit you from making any further disclosure of this information unless further disclosure is expressly permitted by the written consent of the person to whom it pertains or as otherwise permitted by 42 CFR part 2. A general authorization for the release of medical or other information is NOT sufficient for this purpose. The Federal rules restrict any use of the information to criminally investigate or prosecute any alcohol or drug abuse patient.The records that you are about to access may contain highly sensitive health information, the redisclosure of which is protected by Article 27-F of the [facility] Public Health law. If you continue you may have access to information: Regarding HIV / AIDS; Provided by facilities licensed or operated by the [facility] Office of Mental Health; or Provided by the [facility] Office for People With Developmental Disabilities. If such information is present, then the following [facility] mandated warning applies: This information has been disclosed to you from confidential records which are protected by state law. State law prohibits you from making any further disclosure of this information without the specific written consent of the person to whom it pertains, or as otherwise permitted by law. Any unauthorized further disclosure in violation of state law may result in a fine or fci sentence or both. A general authorization for the release of medical or other information is NOT sufficient authorization for further disc losure. Allergies and Adverse Reactions Type Description Substance Reaction Status Data Source(s ) Drug allergy amoxicillin trihydrate AMOXICILLIN TRIHYDRATE Active [facility] ([facility]) Drug allergy clavulanate potassium POTASSIUM CLAVULANATE A ctive [facility] ([facility]) Family History Family Member Name Family Member Gender Family Member Status Date o f Status Description Data Source(s) Unknown Unknown Problem [facility] ([facility]) Encounters Encounter Providers Location Date Indications Data Source(s ) Attender: Emmie Bryant NP FOOD SERVICE HELPER DUSTY [place] 0 06/13/2020 01:25:00 PM EST - 06/13/2020 01:25:00 PM EST Gender identity disorder, unspecifiedEnd ocrine disorder, unspecifiedEncounter for screening for other metabolic disordersHuman immunodeficiency virus [HIV] counseling [facility] ([facility]) Gender identity disorder, unspecified Endocrine disorder, unspecified Encounter for screening for other metabo lic disorders Human immunodeficiency virus [HIV] couns eling Attender: Adore Reynolds 05/10 09:34:00 AM EST - 05/10/2020 09:34:00 AM EST [facility] ([facility]) Attender: UMER Reynolds 03/29/2020 01:20:00 PM EST - 03/29/2020 01:20:00 PM EST [facility] ([facility]) Outpatient Attender: MIGUEL ÁNGEL stevens 03/20/2020 01:35:00 PM EST [facility] ([facility]) Attender: UMER Reynolds 03/14/2020 10:33:00 AM EDT - 03/14/2020 10:33:00 AM EDT [facility] ([facility]) Attender: Catalina Reynolds 1 01:07:00 PM EDT - 03/13/2020 01:07:00 PM EDT [facility] ([facility]) Attender: Catalina Reynolds 1 04:02:00 PM EDT - 03/10/2020 04:02:00 PM EDT [facility] ([facility]) Attender: Adore Reynolds 03/09 01:29:00 PM EDT - 03/09/2020 01:29:00 PM EDT [facility] ([facility]) Attender: Adore Mcmillan 020 09:10:00 AM EDT - 02/29/2020 09:10:00 AM EDT Gender Identity DisorderEndocrine disord er, unspecified [facility] ([facility]) Gender Identity Disorder Endocrine disorder, unspecified Attender: Adore Loredo DUSTY Reynolds 02/24 09:50:00 AM EDT - 02/25/2020 09:50:00 AM EDT Encounter for screening for oth suspecte d endocrine disorderEncounter for screening for lipoid disordersEncounter for screening for other metabolic disordersEncntr screen for dis of the bld/bld-form org/immun mechnsmGender Identity Disorder [facility] ([facility]) Encounter for screening for oth suspecte d endocrine disorder Encounter for screening for lipoid disor ders Encounter for screening for other metabo lic disorders Encntr screen for dis of the bld/bld-for m org/immun mechnsm Gender Identity Disorder Outpatient Attender: Anisha POLLARD 02/21/2020 12:00:11 PM EDT [facility] Outpatient Attender: OTTO POLLARD 02/21/2020 12:00:08 PM EDT [facility] Outpatient Attender: Anisha POLLARD 02/21/2020 10:44:00 AM EDT [facility] Outpatient Attender: SCOT POLLARD 02/11/2020 11:01:02 AM EDT [facility] Attender: UMER Reynolds 02/01/2020 08:41:00 AM EDT - 02/01/2020 08:41:00 AM EDT [facility] ([facility]) Attender: Catalina Mcmillan 01:00:00 PM EDT - 01/31/2020 01:00:00 PM EDT [facility] ([facility]) Attender: RUBEN Mcmillan 11/08 09:30:00 AM EDT - 11/09/2019 09:30:00 AM EDT Gender Identity Disorder [facility] ([facility]) Gender Identity Disorder Attender: RUBEN Reynolds 09:10:00 AM EDT - 11/02/2019 09:10:00 AM EDT [facility] ([facility]) Outpatient Attender: MIGUEL ÁNGEL stevens 10/27/2019 10:30:00 AM EDT [facility] ([facility]) Attender: RUBEN Reynolds 08/2019 11:52:00 AM EDT - 10/21/2019 11:52:00 AM EDT [facility] ([facility]) Attender: RUBEN Reynolds 09:21:00 AM EDT - 10/15/2019 09:21:00 AM EDT [facility] ([facility]) Attender: RUBEN Reynolds 11:48:00 AM EDT - 10/14/2019 11:48:00 AM EDT [facility] ([facility]) Attender: Xiao Mcmillan 09/17 09:45:00 AM EDT - 10/08/2019 09:45:00 AM EDT Gender Identity Disorder [facility] ([facility]) Gender Identity Disorder Attender: RUBEN Reynolds 10:00:00 AM EDT - 10/07/2019 10:00:00 AM EDT Encounter for oth general cnsl and advic e on contraceptionHuman immunodeficiency virus [HIV] counselingGender Identity Disorder [facility] ([facility]) Encounter for oth general cnsl and advic e on contraception Human immunodeficiency virus [HIV] couns eling Gender Identity Disorder Outpatient Attender: SCOT POLLARD 10/04/2019 07:45:[address] [facility] Attender: RUBEN Reynolds 01:47:00 PM EDT - 10/01/2019 01:47:00 PM EDT [facility] ([facility]) Outpatient Attender: SCOT POLLARD 09/27/2019 11:36:[address] [facility] Outpatient Attender: SCOT POLLARD 09/27/2019 11:20:01 AM EDT [facility] Outpatient Attender: Ruben TOWNSENDP-BC FP 07/27/2019 10: 02:02 AM EDT [facility] Outpatient Attender: SCOT POLLARD 07/27/2019 10:00:03 AM EDT [facility] Outpatient Attender: SCOT ELLISON FP 07/27/2019 09:57:03 AM EDT [facility] Outpatient Attender: SCOT POLLARD 07/27/2019 09:52:01 AM EDT [facility] Outpatient Attender: SCOT POLLARD 07/27/2019 09:24:00 AM EDT [facility] Outpatient Attender: SCOT POLLARD 07/27/2019 09:14:00 AM EDT [facility] Outpatient Attender: SCOT POLLARD 07/27/2019 09:10:00 AM EDT [facility] Attender: RUBEN Reynolds 10/2019 10:49:00 AM EST - 07/23/2019 10:49:00 AM EST [facility] ([facility]) Attender: RUBEN Reynolds 09/2019 08:24:00 AM EST - 07/22/2019 08:24:00 AM EST [facility] ([facility]) Attender: RUBEN Reynolds 07:17:00 AM EST - 07/16/2019 07:17:00 AM EST [facility] ([facility]) Outpatient Attender: SCOT POLLARD 07/06/2019 03:09:[address] [facility] Attender: Airam Kaba 10:30:00 AM EST - 07/06/2019 10:30:00 AM EST Encounter for oth general cnsl and advic e on contraceptionTranssexualismEndocrine disorder, unspecifiedHuman immunodeficiency virus [HIV] counselingOther sex counseling [facility] ([facility]) Encounter for oth general cnsl and advic e on contraception Transsexualism Endocrine disorder, unspecified Human immunodeficiency virus [HIV] couns eling Other sex counseling Outpatient 06/28/2019 04:12:00 PM EST [facility] Outpatient Attender: SCOT POLLARD 06/16/2019 09:01:08 PM EST [facility] Medications Medication Brand Name Start Date Product Form Dose Route Admi nistrative Instructions Pharmacy Instructions Status Indications Reaction Description Data Source(s) Estradiol 1 MG Oral Tablet estradiol 1 mg tablet estradiol 1 mg tablet 06/13/2020 12:00:00 AM EST active 2 tabs PO BID. Allow tab to dissolve under your tongue x 30 min before swallowing. Max dose 4mg. [facility]) Finasteride 1 MG Oral Tablet finasteride 1 mg tablet finaste ride 1 mg tablet 06/13/2020 12:00:00 AM EST 1 {tablet} ORAL active take 1 tablet by oral route 3 times every day [facility] ([facility]) Amoxicillin 875 MG Oral Tablet Amoxicillin 03/20/2020 12:00:00 AM EST active [facility] Finasteride 1 MG Oral Tablet finasteride 1 mg tablet finaste ride 1 mg tablet 03/09/2020 12:00:00 AM EDT 1 {tablet} ORAL completed take 1 tablet by oral route 2 times every day [facility] ([facility]) Medication administered onsite Finasteride 1 MG Oral Tablet finasteride 1 mg tablet finaste ride 1 mg tablet 03/09/2020 12:00:00 AM EDT 1 {tablet} ORAL active take 1 tablet by oral route 3 times every day [facility] ([facility]) Estradiol 1 MG Oral Tablet estradiol 1 mg tablet estradiol 1 mg tablet 03/09/2020 12:00:00 AM EDT active 2 tabs PO BID. Allow tab to dissolve under your tongue x 30 min before swallowing. Max dose 4mg. [facility] ([facility]) Finasteride 5 MG Oral Tablet finasteride 5 mg tablet finaste ride 5 mg tablet 02/01/2020 12:00:00 AM EDT 0.5 {tablet} ORAL complete d take 0.5 tablet by oral route every day [facility] ([facility]) Estradiol 1 MG Oral Tablet estradiol 1 mg tablet estradiol 1 mg tablet 02/01/2020 12:00:00 AM EDT active 2 tabs po in morning and 1 tab po every evening. Allow tab to dissolve under your tongue x 30 min before swallowing. Max dose 3mg. [facility] ([facility]) Doxycycline Monohydrate 100 MG Oral Tablet Doxycycline Monoh ydrate 10/27/2019 12:00:00 AM EDT ORAL completed [facility] ([facility]) Azelastine hydrochloride 0.5 MG/ML Ophthalmic Solution Azelastine HCL (Ophthalmic) 10/27/2019 12:00:00 AM EDT completed [facility] ([facility]) Tobramycin 3 MG/ML Ophthalmic Solution Tobramycin 10/27/2019 12:0 0:00 AM EDT completed [facility] ([facility]) Estradiol 1 MG Oral Tablet estradiol 1 mg tablet estradiol 1 mg tablet 10/15/2019 12:00:00 AM EDT active take 1 tablet by oral route 2 times every day. Allow tab to dissolve under your tongue x 30 min before swallowing. [facility] Estradiol 1 MG Oral Tablet estradiol 1 mg tablet estradiol 1 mg tablet 10/07/2019 12:00:00 AM EDT completed take 2 tablet by oral route every morning and 1 tab po every evening. Allow tab to dissolve under your tongue x 30 min before swallowing. [facility] Finasteride 1 MG Oral Tablet finasteride 1 mg tablet finaste ride 1 mg tablet 10/07/2019 12:00:00 AM EDT 1.00 {tablet} ORAL complet ed take 1 tablet by oral route every day [facility] ([facility]) Medication administered onsite Finasteride 1 MG Oral Tablet finasteride 1 mg tablet finaste ride 1 mg tablet 10/07/2019 12:00:00 AM EDT 1 {tablet} ORAL active take 1 tablet by oral route 2 times every day [facility] ([facility]) Estradiol 1 MG Oral Tablet estradiol 1 mg tablet estradiol 1 mg tablet 07/16/2019 12:00:00 AM EST active take 1 tablet by oral route 2 times every day. Allow tab to dissolve under your tongue x 30 min before swallowing. [facility] ([facility]) Finasteride 1 MG Oral Tablet finasteride 1 mg tablet finaste ride 1 mg tablet 07/16/2019 12:00:00 AM EST 1.00 {tablet} ORAL active take 1 tablet by oral route every day [facility] ([facility]) aripiprazole 10 MG Oral Tablet [Abilify] Abilify 10 mg tablet Abilify 10 mg tablet 1.00 {tablet} ORAL completed aripiprazole 10 MG Oral Tablet [Abilify] [facility] ([facility]) 24 HR venlafaxine 37.5 MG Extended Relea se Oral Capsule [Effexor] Effexor XR 37.5 mg capsule,extended release Effexor XR 37.5 mg capsule,extended release 1.00 {capsule} ORAL completed 24 HR v enlafaxine 37.5 MG Extended Release Oral Capsule [Effexor] [facility] ([facility]) Insurance Providers Payer name Policy type / Coverage type Policy ID Covered constitution party ID Covered constitution party's relationship to raza Policy Raza Plan Information [employer] 302/307 [id number] SP [id number] [place] [facility] P [id number] S [id number] DARIUS [id number] SP [id number] Darisu [facility] P [id number] S [id number] [employer] [place] 302/307 [id number] SP [id number] [place] [id number] SP [id number] DARIUS [facility] O [id number] S [id number] D[facility] P [id number] S [id number] [facility] P [id number] S [id number] [place] [facility] P [id number] S [id number] [employer] O [id number] S [id number] PMA MANAGEMENT STEVEN [id number] SP [id number] Darius [facility] P [id number] S [id number] [place] [facility] P [id number] S [id number] Darius [facility] P [id number] S [id number] DARIUS [id number] SP [id number] SELF PAY ONLY UNAVAILABLE SP UNAV AILABLE [facility] [id number] Problems, Conditions, and Diagnoses Code Display Name Description Problem Type Effective Dates Data Source(s) 401.1 Hypertension, benign essential, mild Hypertensio n, benign essential, mild 02/21/2020 11:59:10 AM EDT [facility] 268.9 Vitamin D deficiency Vitamin D deficiency 02/20 11:59:10 AM EDT [facility] 794.5 Thyroid function tests abnormal Thyroid function tests abnormal 02/21/2020 11:59:10 AM EDT [facility] R41.3 Other amnesia Memory lapses 02/21/2020 11:59:10 AM EDT [facility] V85.41 BMI 40.0-44.9 BMI 40.0-44.9 02/21/2020 11:59:10 AM EDT [facility] [id number] Post-traumatic stress disorder, unspecif ied Post-traumatic stress disorder, unspecified 02/21/2020 11:59:10 AM EDT [facility] 301.83 Borderline personality disorder Borderline personality disorder 02/21/[facility] Procedure Description Date Indications Data Source(s) CVR Computer Repair Instructor.Svc. STI / H 06/13/2020 12:00:00 AM EST - 06/13/2020 12:00:00 AM EST [facility] ([facility]) CVR Computer Repair Instructor.Svc. Other 06/13/2020 12:00:00 AM EST - 2020 12:00:00 AM EST [facility] ([facility]) CVR Computer Repair Instructor.Svc. Contraceptive 06/13/2020 12 :00:00 AM EST - 06/13/2020 12:00:00 AM EST [facility] ([facility]) CVR Med.Svc. Height/Weight 06/13/2020 12 :00:00 AM EST - 06/13/2020 12:00:00 AM EST [facility] ([facility]) CVR Blood Pressure 06/13/2020 12:00:00 AM EST - 2020 12:00:00 AM EST [facility] ([facility]) EST PT TG DETAILED 06/13/2020 12:00:00 AM EST - 2020 12:00:00 AM EST [facility] ([facility] [place] [facility]) HEPATIC FUNCTION PANEL 02/29/2020 12:00: 00 AM EDT - 02/29/2020 12:00:00 AM EDT [facility] ([facility]) LIPID PANEL 02/29/2020 12:00:00 AM EDT - 02/29/2020 1 2:00:00 AM EDT [facility] ([facility]) CVR Computer Repair Instructor.Svc. STI / H 02/29/2020 12:00:00 AM EDT - 02/29/2020 12:00:00 AM EDT [facility] ([facility]) CVR Computer Repair Instructor.Svc. Other 02/29/2020 12:00:00 AM EDT - 2019 12:00:00 AM EDT [facility] ([facility]) CVR Med.Svc. Height/Weight 02/29/2020 12 :00:00 AM EDT - 02/29/2020 12:00:00 AM EDT [facility] ([facility]) CVR Blood Pressure 02/29/2020 12:00:00 AM EDT - 2019 12:00:00 AM EDT [facility] ([facility]) ROUTINE VENIPUNCTURE 02/29/2020 12:00:00 AM EDT - 02/29/2020 12:00:00 AM EDT [facility] ([facility]) Injection Or Lab Only Visit Est 02/29/20 20 12:00:00 AM EDT - 02/29/2020 12:00:00 AM EDT [facility] ([facility]) ASSAY OF TOTAL TESTOSTERONE 02/29/2020 1 2:00:00 AM EDT - 02/29/2020 12:00:00 AM EDT [facility] ([facility]) METABOLIC PANEL TOTAL CA 02/29/2020 12:0 0:00 AM EDT - 02/29/2020 12:00:00 AM EDT [facility] ([facility]) ASSAY OF ESTRADIOL 02/29/2020 12:00:00 AM EDT - 2019 12:00:00 AM EDT [facility] ([facility] [place] [facility]) CVR Computer Repair Instructor.Svc. Other 02/25/2020 12:00:00 AM EDT - 2019 12:00:00 AM EDT [facility] ([facility] [place] [facility]) EST PT TG EXP PROB FOCUSED 02/25/2020 12 :00:00 AM EDT - 02/25/2020 12:00:00 AM EDT [facility] ([facility]) ASSAY OF TOTAL TESTOSTERONE 11/09/2019 1 2:00:00 AM EDT - 11/09/2019 12:00:00 AM EDT [facility] ([facility]) ASSAY OF ESTRADIOL 11/09/2019 12:00:00 AM EDT - 2019 12:00:00 AM EDT [facility] ([facility]) LIPID PANEL 11/09/2019 12:00:00 AM EDT - 11/09/2019 1 2:00:00 AM EDT [facility] ([facility]) CVR Computer Repair Instructor.Svc. Other 11/09/2019 12:00:00 AM EDT - 2019 12:00:00 AM EDT [facility] ([facility]) CVR Computer Repair Instructor.Svc. Contraceptive 11/09/2019 12 :00:00 AM EDT - 11/09/2019 12:00:00 AM EDT [facility] ([facility]) CVR Med.Svc. Height/Weight 11/09/2019 12 :00:00 AM EDT - 11/09/2019 12:00:00 AM EDT [facility] ([facility]) CVR Blood Pressure 11/09/2019 12:00:00 AM EDT - 2019 12:00:00 AM EDT [facility] ([facility]) Injection Or Lab Only Visit Est 11/09/19 20 12:00:00 AM EDT - 11/09/2019 12:00:00 AM EDT [facility] ([facility]) ROUTINE VENIPUNCTURE 11/09/2019 12:00:00 AM EDT - 11/09/2019 12:00:00 AM EDT [facility] ([facility]) CVR Computer Repair Instructor.Svc. Other 10/08/2019 12:00:00 AM EDT - 2019 12:00:00 AM EDT [facility] ([facility]) CVR Med.Svc. Height/Weight 10/08/2019 12 :00:00 AM EDT - 10/08/2019 12:00:00 AM EDT [facility] ([facility]) CVR Blood Pressure 10/08/2019 12:00:00 AM EDT - 2019 12:00:00 AM EDT [facility] ([facility]) MA Only Visit Est 10/08/2019 12:00:00 AM EDT - 020 12:00:00 AM EDT [facility] ([facility]) ROUTINE VENIPUNCTURE 10/08/2019 12:00:00 AM EDT - 10/08/2019 12:00:00 AM EDT [facility] ([facility]) CVR Computer Repair Instructor.Svc. STI / H 10/07/2019 12:00:00 AM EDT - 10/07/2019 12:00:00 AM EDT [facility] ([facility]) CVR Computer Repair Instructor.Svc. Other 10/07/2019 12:00:00 AM EDT - 2019 12:00:00 AM EDT [facility] ([facility]) CVR Computer Repair Instructor.Svc. Contraceptive 10/07/2019 12 :00:00 AM EDT - 10/07/2019 12:00:00 AM EDT [facility] ([facility]) LIPIDS PROFILE 10/07/2019 12:00:00 AM EDT - 10/07/2019 12:00:00 AM EDT [facility] ([facility]) TESTOSTERONE 10/07/2019 12:00:00 AM EDT - 10/07/2019 1 2:00:00 AM EDT [facility] ([facility]) ASSAY OF ESTRADIOL 10/07/2019 12:00:00 AM EDT - 2019 12:00:00 AM EDT [facility] ([facility]) EST PT TG EXP PROB FOCUSED 10/07/2019 12 :00:00 AM EDT - 10/07/2019 12:00:00 AM EDT [facility] ([facility]) Results ID Date Data Source [id number] 02/21/2020 10:58:[address] [facility] Measurements & CalculationsHeight: 70 inches (5 ft. 10 in.) 177.80 cm Weight: 282 pounds 8 oz. 128.41 kg Body Mass Index (BMI): 40.68BMI Interpretation: Morbidly ObeseBody Surface Area (BSA): 2.42Weight Management Education Done (Nutrition/Physical Activity)Vital SignsTemperature: 99.4F tympanic Pulse Rate: 96 beats/minuteRespiratory Rate: 18 respirations/minuteBlood Pressure: 140/88 right arm sitting automaticO2 Saturation: 98% sittingVital Signs performed by: Amber Scott MA, February 21, 2020 11:21 AMInitial Intake Information From: patientRoom #: 12Infectious Disease / Travel ScreeningRecent travel for you or any close contacts? NoHave you had any close contact with anyone diagnosed with or under investigation for COVID-19 (coronavirus)? NoFever? NoRespiratory symptoms: cough, cold, congestion, shortness of breath, difficulty breathing? NoLoss of smell? NoLoss of taste? NoSmoking, Tobacco, Vaping or Smoke Exposure StatusSmoke Status: current every day smokerTobacco Use: YesAdv to Quit: YesDo you vape? NoPassive Smoke Exposure: YesPassive Smoke Exposure comments: self & roomateHealthcare HistorySince your last office visit...Have you [facility]: [facility]2020Have you seen another healthcare provider? Yes - Mental Health ([facility])Healthcare provider date reported today: 02/15/2020Have you seen a dentist? NoIntake performed by: Amber Scott MA, February 21, 2020 11:07 AMRate Your HealthIn general, would you say your health is? Very GoodPain AssessmentAre you currently having any pain which... You would like your provider to address? No Affects your activity level? NoDepression Screening - PHQ-2Over the last two weeks, have you... Had little interest or pleasure in doing things? Not at all Been feeling down, depressed, or hopeless? Not at all PHQ-2 Score: 0Anxiety Screening - BERLIN-2Over the last two weeks, have you been... Feeling nervous, anxious, or on edge? Not at all Unable to stop or control worrying? Not at all BERLIN-2 Score: 0Food InsecurityWithin the past year...Did you worry whether your food would run out before you got money to buy more? Never trueWas there a time when the food you bought didn't last and you didn't have money to get more? Never truePatient Learning & Communication Needs Preferred learning style: by experiencePossible barriers: nonePatient's Language used in visit: YesLanguage: englishAssessment of health literacy: AdequateScre ening, Brief Intervention, & Referral to Treatment (SBIRT)Pre-Screening Questions How many times have you have 5 or more drinks in a day? 0How many times have you used an illegal drug or used a prescription medication for a non- medical reason? 0Performed by: Amber Scott MA, February 21, 2020 11:09 AMPatient History Medical History:ADHDDepressionPTSDHigh cholesterolHypertensionObesitySurgical History:pins in left little fingerFamily History:patient was adopted so unsureSocial/Personal History:live with girlfriendstudent at [facility] Advised to Quit/Tobacco Education: YesChief Complaintfollow-up visit/ Hosp D/CHistory of Present Illness (HPI)Yanique is a 30 yo transgender female (transitioning MTF) presents for ED follow up. Seen in the ED and admitted several times recently for "blackout" and "memory lapses". Admits to multiple personalities and hearing voices since childhood. Following with psychiatry routinely. Feels her current medication regimen is appropriate. Unsure if the "lapses" are due to mental health issues or neurologic concerns. Recent ED visit was triggered by the fact that the memory lapses have been increasing in length. No known seizures or headaches. ED labs were normal with exception of TFTs and CBC. Patient is adopted, she does not know if there is family history of thyroid disease. Normal head CT. Cannot identify trigger or remember a few days prior to onset. Was told she needed to see a neurologist to r/o organic pathology vs. mental health issue. [facility]Transitions of Care InboundProblem Revie wProblem List was reviewed and/or updated during this visit.Medication Reconciliation & ReviewMedication List was reviewed and/or updated during this visit, including review of any yntx-wlo-pvdstho medications, herbal therapies, and/or supplements.Allergy ReviewAllergy List was reviewed and/or updated during this visit.Adult Preventive CareProvider Calculated and Reviewed all Clinical Protocols for patient today. Screening Tobacco Screening: Smoking Status: current every day smoker (02/21/2020) Tobacco Use: Currently (02/21/2020) Advised to Quit: Yes (02/21/2020)Labs/Meds/Other Counseling-Nutrition and Physical Activity:BMI Interpretation: Morbidly Obese (02/21/2020) Counseling: Done (02/21/2020) Physical Activity: Done (02/21/2020)Review of Systems General: Denies loss of appetite, chills, dizziness, fatigue, fever, continued fever, headache, feeling ill, sweats, night sweats, sleep disturbances, weight loss. Eyes: Denies blurring of vision, double vision. Cardiovascular: Denies chest pain, palpitations, feeling faint, trouble breathing w/exertion, elevated blood pressure, decreased heart rate. Respiratory: Denies cough, difficulty breathing, shortness of breath. Gastrointestinal: Denies nausea, vomiting. Musculoskeletal: Denies back pain, joint pain, leg pain. Neurologic: Denies muscle impairment, weakness, numbness/tingling, seizures, slurred speech, feeling faint, tremors, vertigo, paralysis on one side, paralysis on both sides. Psychiatric: Complains of depression, anxiety, memory loss, mental disturbance, feeling stressed, hearing voices. Denies suicidal ideation, everardo icidal ideation, paranoia. Physical ExamGeneral Appearance: well nourished, well hydrated, no acute distressEyes, External: conjunctivae and lids normal, EOMIRespiratory, Auscultation: clear to auscultation bilaterally; no rales, rhonchi, or wheezesRespiratory, Effort: no intercostal retractions or use of accessory musclesCardiovascular, Auscultation: S1, S2 audible; no murmur, rub, or gallop; RRRAbdomen: soft, non-tender, no masses, bowel sounds normalGait & Station: normalOrientation: oriented to time, place, and personMood & Affect: no depression, anxiety, or agitationJudgment & Insight: intactCare Management Plan Transitions of CareInboundRate Your HealthIn general, would you say your health is? Very GoodAssessment & Plan Problems:Added: BMI 40.0-44.9 (ICD-V85.41) (RWQ53-C06.41)Post-traumatic stress disorder, unspecified (SZA40-A65.10) Assessment: following with psychBorderline personality disorder (ICD-301.83) (COX12-L30.3) Assessment: following with psychMemory lapses (YQA14-B38.3) Assessment: psych vs. neurologic issue. will send neuro referral, continue current psychiatric care. discussed s/s that would warrant ED eval.Thyroid function tests abnormal (ICD-794.5) (WYP69-U77.6) Assessment: will recheckVitamin D deficiency (ICD-268.9) (YKV57-V26.9) Assessment: will recheckHypertension, benign essential, mild (ICD-401.1) (HCA63-W70) Assessment: sent lisinopril, labs orderedAssessment not Saved Hypertension; benign essential; mild (JHE83-R36): Comment Onlysent lisinopril, labs ordered. discusse lifestyle mods and importance of compliance with CPAP. TFT ab normalities may be affecting as well. BP borderline today. Will recheck at follow up. Discussed s/s that would warrant ED eval.Medications:RISPERDAL 1 MG ORAL TABLETSERTRALINE HCL 50 MG ORAL TABLETEFFEXOR XR 150 MG ORAL CAPSULE EXTENDED RELEASE 24 HOURFINASTERIDE 5 MG ORAL TABLETESTRACE 1 MG ORAL TABLETLISINOPRIL 20 MG ORAL TABLETMedication Changes:Added: ESTRACE 1 MG ORAL TABLETFINASTERIDE 5 MG ORAL TABLET-1/2 tablet twice dailyEFFEXOR XR 150 MG ORAL CAPSULE EXTENDED RELEASE 24 HOUR-1 tablet once dailySERTRALINE HCL 50 MG ORAL TABLET-1 tablet once dailyRISPERDAL 1 MG ORAL TABLET-1 tablet once daily in the morningRefilled:LISINOPRIL 20 MG ORAL TABLET-Take one tab po QD Qty: 30[Tablet] Refills: 5 Method: ElectronicRemoved:STRATTERA 60 MG ORAL CAPSULE-One tab po QD, FENOFIBRATE 145 MG ORAL TABLET-Take one tab po QD Qty: 30[Tablet] Refills: 5Allergies:AUGMENTIN (AMOXICILLIN-POT CLAVULANATE) (AMOXICILLIN-POT CLAVULANATE) (Critical)Orders:COMP METABOLIC PANEL [CPT-30970] CBC W/DIFF [CPT-58633] HgBA1c [CPT-51779] LIPID PANEL [CPT-50926] TSH [CPT-47259] T-4 free [CPT-51792] Vitamin D 250H Unspecified [CPT-45929] Thyroid Peroxidase Antibody [CPT_86376] Thyroglobulin antibody [CPT-12075] TSI-Thyroid stimulating immune globulins [CPT-16376] Neurology Consult [CPT-57954] Ofc Vst, Est Level IV [CPT-21673] Follow-Up Return to clinic: in 30 days for follow upAdditional Follow-Up: TFT, BPPlan Comments: declines flu shot today.Clinical Visit Summary DeclinedMedications:LISINOPRIL 20 MG ORAL TABLET (LISINOPRIL) Take one tab po QD #30[Tablet] x 5 Route:ORAL Entered and Authorized by: Anisha ZAPATA Method used: Electronically to [facility]* ([employer]) [id number] [place] [address] Note to Pharmacy: Route: ORAL; RxID: [id number] FENOFIBRATE 145 MG ORAL TABLET (FENOFIBRATE) Take one tab po QD #30[Tablet] x 5 Route:ORAL Entered and Authorized by: Anisha ZAPATA Method used: Electronically to [facility]* (retail) [id number] [place] [address] RxID: [id number] signed by Anisha ZAPATA on 02/21/2020 at 11:59 AM Name Value Range Interpretation Code Description Data Roxane rce(s) Supporting Document(s) ID Date Data Source [id number] 07/27/2019 09:21:07 AM EDT [facility] Measurements & CalculationsHeight: 70 inches (5 ft. 10 in.) 177.80 cm Weight: 274 pounds 2 oz. 124.60 kg Body Mass Index (BMI): 39.48BMI Interpretation: ObeseBody Surface Area (BSA): 2.39Weight Management Education Done (Nutrition/Physical Activity)Vital SignsTemperature: 98.7F oral Pulse Rate: 82 beats/minuteRespiratory Rate: 18 respirations/minuteBlood Pressure: 126/83 right arm sitting automaticO2 Saturation: 98% room airVital Signs performed by: Bruno William MA, July 27, 2019 9:37 AMInitial Intake Information from: patientRoom #: 13Smoking, Tobacco, Vaping or Smoke Exposure StatusSmoke Status: current every day smokerTobacco Use: YesAdv to Quit: YesDo you vape? NoPassive Smoke Exposure: YesHealthcare HistorySince your last office visit...Have you been admitted to the hospital? [facility] IMHUHospital admission date reported today: 06/16/2019Have you been to an emergency room (ER) or urgent care clinic? Yes [facility] or urgent care date reported today: 06/16/2019Have you seen another healthcare provider? Yes [facility] you seen a dentist? NoIntake performed by: Bruno William MA, July 27, 2019 9:28 AMRate Your HealthIn general, would you say your health is? GoodPain AssessmentAre you currently having any pain which... You would like your provider to address? No Affects your activity level? NoDepression Screening - PHQ-2Over the last two weeks, have you... Had little interest or pleasure in doing things? Not at all Been feeling down, depressed, or hopeless? Not at all PHQ-2 Score: 0Anxiety Screening - BERLIN-2Over the last two weeks, have you been... Feeling nervous, anxious, or on edge? Not at all Unable to stop or control worrying? Not at all BERLIN-2 Score: 0Food InsecurityWithin the past year...Did you worry whether your food would run out before you got money to buy more? NoWas there a time when the food you bought didn't last and you didn't have money to get more? NoInfectious Disease / Travel ScreeningRecent travel for you, your family, and/or any sexual partners? NoGeneralized Anxiety Disorder 7-Item Screening (BERLIN-7)Answer Guide:0 = Not at all1 = Several days2 = Over half the days3 = Nearly every dayOver the last 2 weeks, how often have you been bothered by the following problems?Feeling nervous, anxious, or on edge: 0Not being able to stop or control worryinWorrying too much about different things: 0Trouble relaxinBeing so restless that it's hard to sit still: 0Becoming easily annoyed or irritable: 0Feeling afraid as if something awful might happen: 0GAD-7 Screening Results BERLIN-2 Score: 0GAD-7 Score: 0Recommendation: Minimal anxietyPHQ-9 1. Over the last 2 weeks, patient reports the following frequency of symptoms: a. Little interest or pleasure in doing things -Not at all b. Feeling down, depressed, or hopeless -Not at all c. Trouble falling asleep, staying asleep, or sleeping too much -Nearly every day d. Feeling tired or having little energy -Not at all e. Poor appetite or overeating -Not at all f. Feeling bad about yourself, feeling that you are a failure, or feeling that you have let yourself or your family down -Not at all g. Trouble concentrating on things such as reading the newspaper or watching television -Not at all h. Moving or speaking so slowly that other people could have noticed. Or being so fidgety or restless that you have been moving around a lot more than usual -Not at all i. Thinking that you would be better off or that you want to hurt yourself in some way -Not at all2. If you checked off any problems, how difficult have these problems made it for you to do your work, take care of things at home, or get along with other people? - Not Difficult at AllToday's PHQ-9 Results Score: 3 Severity: Minimal Diagnosis Recommendation: No recommendation Functional Impairment: Not Difficult at AllScreening, Brief Intervention, & Referral to Treatment ( SBIRT)Pre-Screening Questions How many times have you have 5 or more drinks in a day? 0How many times have you used an illegal drug or used a prescription medication for a non-medical reason? 0Performed by: Bruno William MA, July 27, 2019 9:31 AMPatient History Medical History:ADHDDepressionPTSDHigh cholesterolHypertensionObesitySurgical History:pins in left little fingerFamily History:patient was adopted so unsureSocial/Personal History:[facility] Advised to Quit/Tobacco Education: YesChief Complaintfollow-up visit: [facility])I, Guillermo Rodriguez MA, am scribing for, and in the presence of, Charlie Valencia, DO pt here today to f/u hospital discharge for Mental Health at [facility]. pt staes he tried to commit suicide by ingesting 150 mg of trazadone. pt states from being discharged he feels the happiest he has been. he states that he feels so much better. pt states he is going through a gender transformation and that it is going well. pt's lungs are clear, heart is good. pt denies SOB or bowell issues. Transitions of Care InboundProblem ReviewProblem List was reviewed and/or updated during this visit.Medication Reconciliation & ReviewMedication List was reviewed and/or updated during this visit, including review of any ihst-cuk-jwiztdo medications, herbal therapies, and/or supplements.Allergy ReviewAllergy List was reviewed and/or updated during this visit.Adult Preventive CareProvider Calculated and Reviewed all Clinical Protocols for patient today. Screening Tobacco Screening: Smoking Status: current every day smoker (07/27/2019) Tobacco Use: Currently (07/27/2019) Advised to Quit: Yes (07/27/2019)Labs/Meds/Other Counseling-Nutrition and Physical Activity:BMI Interpretation: Obese (07/27/2019) Counseling: Done (07/27/2019) Physical Activity: Done (07/27/2019)Review of Systems General: Denies loss of appetite, chills, dizziness, fatigue, fever, continued fever, headache, feeling ill, sweats, night sweats, sleep disturbances, weight loss. Cardiovascular: Denies chest pain, palpitations, feeling faint, trouble breathing w/exertion, SOB upon lying down, SOB at night, peripheral edema, elevated blood pressure, decreased heart rate. Respiratory: Denies cough, difficulty breathing, shortness of breath, excessive sputum, coughing up blood, wheezing, chest pain. Gastrointestinal: Denies nausea, vomiting, bleeding, burning, itching, irritation, cramps, diarrhea, bloody diarrhea, watery diarrhea, constipation, pain or discomfort, feeling any lumps or bumps, pain with BM, pain during receptive anal sex, change in bowel habits, fecal incontinence, abdominal pain, blood in stool, black or tarry stools, jaundice, heartburn, urge to defecate. Psychiatric: Denies depression, anxiety, memory loss, mental disturbance, suicidal ideation, homicidal ideation, hallucinations, paranoia, feeling stressed, hearing voices. Physical ExamGeneral Appearance: well nourished, well hydrated, no acute distressRespiratory, Auscultation: clear to auscultation bilaterally; no rales, rhonchi, or wheezesRespiratory, Effort: no intercostal retractions or use of accessory musclesPeripheral Circulation: no clubbing, cyanosis, edema, or varicositiesGait & Station: normalOrientation: oriented to time, place, and personMood & Affect: no depression, anxiety, or agitationJudgment & Insight: intactOther Findings: no longer has suicidal ideati on. Counseled pt for 15 min.Care Management Plan Transitions of CareInboundRate Your HealthIn general, would you say your health is? GoodAssessment & Plan Assessment not SavedMixed anxiety and depressive disorder ([id number]): no longer suicidalMedications:LISINOPRIL 20 MG ORAL TABLETFENOFIBRATE 145 MG ORAL TABLETSTRATTERA 60 MG ORAL CAPSULEMedication Changes:Removed:BUSPIRONE HCL 10 MG ORAL TABLET-Take one BID, SERTRALINE HCL 100 MG ORAL TABLET-One tablet by mouth every dayAllergies:AUGMENTIN (AMOXICILLIN-POT CLAVULANATE) (AMOXICILLIN-POT CLAVULANATE) (Critical)Orders:Adult - Ofc Vst, EST, Level III [CPT-66240] ] Name Value Range Interpretation Code Description Data Roxane rce(s) Supporting Document(s) Procedure Social History Code Duration Value Status Description Data Source(s ) 06/13/2020 12:00:00 AM EST Light cigarette smoker (1-9 cigs/day) completed Light cigarette smoker (1-9 cigs/day) [facility] ([facility]) Smoking 06/13/2020 12:00:00 AM EST Light tobacco smoker comple sourav Light tobacco smoker [facility] ([facility]) Vital Signs ID Date Data Source UNK Name Value Range Interpretation Code Description Data Source(s) Body height 185.42 cm 185.42 cm [facility] ([facility]) Body mass index (BMI) [Ratio] 37.3 kg/m2 37.3 k g/m2 [facility] ([facility]) Body height 73 [in_i] 73 [in_i] [facility] ([facility]) 6'1" Body weight 283.00 [lb_av] 283.00 [lb_av] MEDEN T ([facility]) Body temperature 98.2 [degF] 98.2 [degF] [facility] ([facility]) Oxygen saturation in Arterial blood by Pulse oximetry 97 % 97 % [facility] Respiratory rate 16 /min 16 /min [facility] Heart rate 104 /min 104 /min [facility] ([facility]) Diastolic blood pressure 95 mm[Hg] 95 mm[Hg] [facility] ([facility]) Systolic blood pressure 150 mm[Hg] 150 mm[Hg] M EDENT ([facility]) Body mass index (BMI) [Ratio] 36.49 kg/m2 Overweight 36.49 kg/m2 [facility] ([facility]) Diastolic blood pressure 76 mm[Hg] 76 mm[Hg] [facility] ([facility]) Systolic blood pressure 127 mm[Hg] 127 mm[Hg] N extGen ([facility]) Body weight 125.464 kg 125.464 kg [facility] ([facility] Body height 185.42 cm 185.42 cm [facility] ([facility]) Body mass index (BMI) [Ratio] 37.34 kg/m2 Overweight 37.34 kg/m2 [facility] ([facility]) Body weight 128.367 kg 128.367 kg [facility] ([facility] Body height 185.42 cm 185.42 cm [facility] ([facility]) Body mass index (BMI) [Ratio] 36.31 kg/m2 Overweight 36.31 kg/m2 [facility] ([facility]) Diastolic blood pressure 82 mm[Hg] 82 mm[Hg] [facility] ([facility]) Systolic blood pressure 122 mm[Hg] 122 mm[Hg] N extGen ([facility]) Body weight 124.829 kg 124.829 kg [facility] ([facility] Body height 185.42 cm 185.42 cm [facility] ([facility]) Body mass index (BMI) [Ratio] 23.4 kg/m2 23.4 k g/m2 [facility] ([facility]) Body height 74 [in_i] 74 [in_i] [facility] ([facility]) 6'2" Body weight 182.00 [lb_av] 182.00 [lb_av] MEDEN T ([facility], [facility]) Body temperature 98.3 [degF] 98.3 [degF] [facility]) Oxygen saturation in Arterial blood by Pulse oximetry 97 % 97 % [facility] ([facility]) Respiratory rate 20 /min 20 /min [facility] ( [facility]) Heart rate 108 /min 108 /min [facility]) Diastolic blood pressure 91 mm[Hg] 91 mm[Hg] [facility] Systolic blood pressure 149 mm[Hg] 149 mm[Hg] M EDENT ([facility], [facility]) Body mass index (BMI) [Ratio] 37.07 kg/m2 Overweight 37.07 kg/m2 [facility] ([facility]) Body temperature 36.94 Kamini 36.94 Kamini [facility] ([facility]) Heart rate 80 /min 80 /min [facility] Diastolic blood pressure 75 mm[Hg] 75 mm[Hg] [facility] ([facility]) Systolic blood pressure 121 mm[Hg] 121 mm[Hg] N extGen ([facility]) Body weight 127.459 kg 127.459 kg [facility] Body height 185.42 cm 185.42 cm [facility] ([facility]) Patient Treatment Plan of Care Planned Activity Planned Date Details Description Data Source (s) Estradiol 1 MG Oral Tablet 06/13/2020 12:00:00 AM EST [facility] ([facility]) Finasteride 1 MG Oral Tablet 06/13/2020 12:00:00 AM EST [facility] ([facility]) Finasteride 1 MG Oral Tablet 03/09/2020 12:00:00 AM EDT [facility] ([facility]) Estradiol 1 MG Oral Tablet 03/09/2020 12:00:00 AM EDT [facility] ([facility]) Finasteride 1 MG Oral Tablet 03/09/2020 12:00:00 AM EDT [facility] ([facility]) Finasteride 5 MG Oral Tablet 02/01/2020 12:00:00 AM EDT [facility] ([facility]) Estradiol 1 MG Oral Tablet 02/01/2020 12:00:00 AM EDT [facility] ([facility]) Estradiol 1 MG Oral Tablet 10/15/2019 12:00:00 AM EDT [facility] ([facility]) Finasteride 1 MG Oral Tablet 10/07/2019 12:00:00 AM EDT [facility] ([facility]) Estradiol 1 MG Oral Tablet 10/07/2019 12:00:00 AM EDT [facility] ([facility]) Finasteride 1 MG Oral Tablet 10/07/2019 12:00:00 AM EDT [facility] ([facility]) Estradiol 1 MG Oral Tablet 07/16/2019 12:00:00 AM EST [facility] ([facility]) Finasteride 1 MG Oral Tablet 07/16/2019 12:00:00 AM EST [facility] ([facility]) 24 HR venlafaxine 37.5 MG Extended Release Oral Capsule [Effexor] [facility] ([facility]) aripiprazole 10 MG Oral Tablet [Abilify] [facility] ([facility])
--- OUTSIDE RECORDS SUMMARY | 2020-06-18 19:59 | CCD | Continuity of Care Document ---
Author Author Colton MONTES DE OCA PA Organization Unknown Address [address] [place] [address] [place] [address] Phone [phone] Care Team Providers Care Flexo Press Operator Name Role Phone Joaquim Weaver MD AUTM [phone] Jaspreet Kong Publi AUTM [phone] Problems Description No Information Available Social History Type Date Description Comments Sex Unknown Tobacco Use Start: Unknown Patient is a current cigarette smoker, smokes every day ETOH Use Rarely consumes alcohol Tobacco Use Start: Unknown Patient is a current smoker, smo kes every day Smoking Status Reviewed: 03/20/20 Patient is a current smoker, smokes every day Allergies, Adverse Reactions, Alerts Active Allergies Reaction Severity Comments Date Augmentin vomiting 11/16/2017 Medications Active Medications SIG Qnty Indications Ordering Provide r Date Amoxicillin 875mg Tablets take one tablet every 12 hrs.x 10 days. 20tabs J01.10 Antione Uriarte JR., M.D. 03/20/2020 Tylenol 325mg Capsules Unknown Nyquil Severe+ Vapocool 5-6.25-10-325mg/15ML Liquid last dose last night Unknown 000 Sudafed Unknown Lisinopril 10mg Tablets 1 by mouth every day Unknown Effexor XR Unknown Estradiol 1mg Tablets bid Unknown Finasteride 1mg Tablets Unknown Risperdal 1mg Tablets bid Unknown History Medications Doxycycline Monohydrate 100mg Tabl ets 1 tab by mouth twice a day for 10 days 20tabs J01.10 Antione Uriarte JR., M.D. 10/27/2019 - 03/20/2020 Tobramycin 0.3% Solution instill 1-2 drops to affected eye three times a day x 7 days. 1units H10.33 Antione Uriarte JR., M.D. 10/27/2019 - 03/20/2020 Azelastine HCL (Ophthalmic) 0.05% Solution instill 1 drops to each eye twice a day for itchy eyes 6ml H10.33 Antione Uriatre JR., M.D. 10/27/2019 - 03/20/2020 Immunizations Description No Information Available Vital Signs Date Vital Result Comment 03/20/2020 2:20pm BP Systolic 150 mmHg BP Diastolic 95 mmHg Heart Rate 104 /min Respiratory Rate 16 /min O2 % BldC Oximetry 97 % Body Temperature 98.2 F Weight 283.00 lb Height 73 inches 6'1" BMI (Body Mass Index) 37.3 kg/m2 Pain Level 7 10/27/2019 10:26am BP Systolic 149 mmHg BP Diastolic 91 mmHg Heart Rate 108 /min Respiratory Rate 20 /min O2 % BldC Oximetry 97 % Body Temperature 98.3 F Weight 182.00 lb Height 74 inches 6'2" BMI (Body Mass Index) 23.4 kg/m2 Pain Level 5 Results Description No Information Available Procedures Description No Information Available Medical Devices Description No Information Available Encounters Type Date Location Provider Dx Diagnosis Office Visit 03/20/2020 2:35p Main Office JODI Fernandes J01 .10 Acute frontal sinusitis, unspecified Z20.828 Contact w and exposure to ot h viral communicable diseases Office Visit 10/27/2019 10:30a Main Office JODI Fernandes J01 .10 Acute frontal sinusitis, unspecified H10.33 Unspecified acute conjunctiv itis, bilateral Assessments Date Code Description Provider 03/20/2020 J01.10 Acute frontal sinusitis, unspeci fied JODI Fernandes 03/20/2020 Z20.828 Contact with and (jacobson spected) exposure to other viral communicable diseases JODI Fernandes 10/27/2019 J01.10 Acute frontal sinusitis, unspeci fied JODI Fernandes 10/27/2019 H10.33 Unspecified acute conjunctivitis , bilateral JODI Fernandes Plan of Treatment No Information Available Functional Status Description No Information Available Mental Status Description No Information Available Referrals Description No Information Available
--- OUTSIDE RECORDS SUMMARY | 2020-06-18 19:59 | CCD | Continuity of Care Document ---
Author Author Colton MONTES DE OCA PA Organization Unknown Address [address] [place] [address] [place] [address] Phone [phone] Care Team Providers Care Metal Pourer Name Role Phone Joaquim Weaver MD AUTM [phone] Jaspreet Kong Publi AUTM [phone] Problems Description No Information Available Social History [...] day for itchy eyes 6ml H10.33 Antione Uriarte JR., M.D. 10/27/2019 - 03/20/2020 Immunizations Description [...]
--- OUTSIDE RECORDS SUMMARY | 2020-06-18 19:59 | CCD | Continuity of Care Document ---
Author Author [facility] Organization [facility] Address Unknown Phone Unavailable Care Team Providers Care Temple Marker Name Role Phone Manny POLE PEELING MACHINE OPERATOR, Emmie Unavailable Unavailable Allergies, Adverse Reactions, Alerts Substance [...] min before swallowing. Max dose 4mg. - Active Effexor XR 75 mg capsule,extended [...] (start - stop) Clinical Status C omments Human immunodeficiency virus [HIV] counseling Encounter for screening for other metabolic disorders Endocrine disorder, unspecified Gender identity disorder, unspecified Endocrine disorder, unspecified Gender Identity Disorder Gender Identity Disorder Encntr screen for dis of the bld/bld-form org/immun [facility] Encounter for screening for other metabolic disorders [...] and advice on contraception Procedures Procedure Date EST PT TG DETAILED CVR Blood Pressure CVR Med.Svc. Height/Weight CVR Buffing Wheel Inspector.Svc. Contraceptive CVR Buffing Wheel Inspector.Svc. Other CVR Buffing Wheel Inspector.Svc. STI / H Results Test Name Date and Time Measure Units Reference Range Abnormal Flag St atus Comments No Information Advance Directives Directive Yes / No Effective Date File Name No Information Encounters Encounter Description Practice Location Reason(s) For Visit Diagnose s Date Provider Providers Copied on Encounter [facility], [address] [place] [address], [id number], tel:[phone] DUSTY Leonard GAHT (chief complaint) Human immunodeficiency virus [HIV] counselingEncounter for screening for other metabolic disordersEndocrine disorder, unspecifiedGender identity disorder, unspecified Manny Olea. [address] [place] [address], [id number], . tel:[phone] Referring Provider: Emmie Carrion, [address] [place] [address], [id number]. tel:[phone] [facility], [address] [place] [address], [id number], tel:[phone] DUSTY Leonard Endocrine disorder, unspecifiedGender Identity Disorder Facundo Avitia. [address] [place] [address], [id number], . tel:[phone] Referring Provider: Adore Loredo, [address] [place] [address], [id number]. tel:[phone] Provider: DUSTY Nurse/[place]. [facility], [address] [place] [address], [id number], tel:[phone] DUSTY Reynolds Gender Identity Dis orderEncntr screen for dis of the bld/bld-form org/immun mechnsmEncounter for screening for other metabolic disordersEncounter for screening for lipoid disordersEncounter for screening for oth suspected endocrine disorder Manny Avitia. [address] [place] [address], [id number], [place]. tel:[phone] Referring Provider: Adore Loredo, [address] [place] [address], [id number]. tel:[phone] [facility], [address] [place] [address], [id number], [place] tel:[phone] DUSTY Leonard Gender Identity Disorder Helen Obregon. [address] [place] [address], [id number], [place]. tel:[phone] Referring Provider: Mindi Cervantes, [address] [place] [address], [id number]. tel:[phone] Provider: DUSTY Nurse/[place]. [facility], [address] [place] [address], [id number], [place] tel:[phone] DUSTY Leonard Gender Identity Disorder Snehal Hagen. [address] [place] [address], [id number], [place]. tel:[phone] Referring Provider: Xiao Brian, [address], [place], [id number]. tel:[phone] Provider: DUSTY Nurse/[place]. [facility], [address] [place] [address], [id number], [place] tel:[phone] DUSTY Reynolds Gender Identity Dis orderHuman immunodeficiency virus [HIV] counselingEncounter for oth general cnsl and advice on contraception Helen Obregon. [address] [place] [address], [id number], [place]. tel:[phone] Referring Provider: Mindi Cervantes, [address] [place] [address], [id number]. tel:[phone] [facility], [address] [place] [address], [id number], tel:[phone] DUSTY Kaba Other sex counselin Seda immunodeficiency virus [HIV] counselingEndocrine disorder, unspecifiedTranssexualismEncounter for oth general cnsl and advice on contraception Villagomez. [address] [place] [address], [id number], [place]. tel:[phone] Referring Provider: Airam MejiaJazmine Cisco, [address] [place] [address], [id number]. tel:[phone] Family History Family Member Diagnosis Age At Onset No Information Immunizations Vaccine Date Status Comments No Information Payers Payer name Insurance type Covered alliance party ID Authorization(s ) [facility] [id number] Social History Type Description Quantity Date Captured Comments Alcohol Use Details Unknown Caffeine Use Details Unknown Tobacco Use Status Light cigarette smoker (1-9 cigs/day) Smoking Status Light tobacco smoker Smoking Tobacco Use Details Cigarette: No Details Available Cigarette: 5 Cigarettes per day Sex Male Vital Signs Date / Time: Height Weight BMI Pulse Rate Blood Pressure Temperatu re Respiratory Rate Body Surface Area Head Circumference BMI percentile Pulse Ox In haled Ox 1:31 PM 73.00 in Chief Complaint And Reason For Visit Most recent encounter only, dated '06/13/2020 13:25'. GAHT (chief complaint). Description: Patient is here today for a follow-up. Onelia ent's sex is male and current gender is male. Patient prefers to go by She, Her, Hers. Age of awareness was 14. Patient is living as identified gender since 1.5 months. Patient is living identified gender at home, work, school and social. Patient expresses incongruence between experienced/expressed gender and primary and/or secondary sex characteristics, strong desire for primary and/or secondary sex characteristics to align with gender other than ASAB. Patient desires gender affirming surgery, electrolysis hair removal, speech therapy/voice coaching and to continue therapy. Patient has consulted a mental health provider. Patient is consulting with Arron Dodd at [facility]. Coping with transition: Follows monthly, coping well. PTSD as well.. Patient reports no current/prior use of needles to inject hormones or silicones. The following body organ(s) is/are present: penis, prostate and testes. The patient has been managed with Estrogen and Finasteride. Associated symptoms include change in body fat, skin changes, breast/nipple development, decreased ejaculation, decreased erection, hair changes, anxiety, depression, dysphoria and reduction in genital size. Pertinent negatives include change in muscle strength, decreased libido, increased libido, injection complications, mood swings, sexual dysfunction, voice change, decreased hair growth, emotional lability, testicular softening, fatigue, hot flashes and planned/recent surgery requiring prolonged immobilization. Aggravating factors include None. Relieving factors include family and Friends. Reason For Referral Reason For Referral No Information Plan Of Treatment Date Type Action Status Goal Tobacco cessation counseling com pleted Goal Tobacco cessation counseling com pleted Goal Tobacco cessation counseling com pleted Goal Tobacco cessation counseling com pleted Appointment Colton Berg *[facility] - HRT B loodwork BOOKED History Of Present Illness Encounter Date Complaint History Of Present I llness GAELIZABETH Patient is here toda y for a follow-up. Patient's sex is male and current gender is male. Patient prefers to go by She, Her, Hers. Age of awareness was 14. Patient is living as identified gender since 1.5 months. Patient is living identified gender at home, work, school and social. Patient expresses incongruence between experienced/expressed gender and primary and/or secondary sex characteristics, strong desire for primary and/or secondary sex characteristics to align with gender other than ASAB. Patient desires gender affirming surgery, electrolysis hair removal, speech therapy/voice coaching and to continue therapy. Patient has consulted a mental health provider. Patient is consulting with Arron Dodd at [facility]. Coping with transition: Follows monthly, coping well. PTSD as well.. Patient reports no current/prior use of needles to inject hormones or silicones. The following body organ(s) is/are present: penis, prostate and testes. The patient has been managed with Estrogen and Finast eride. Associated symptoms include change in body fat, skin changes, breast/nipple development, decreased ejaculation, decreased erection, hair changes, anxiety, depression, dysphoria and reduction in genital size. Pertinent negatives include change in muscle strength, decreased libido, increased libido, injection complications, mood swings, sexual dysfunction, voice change, decreased hair growth, emotional lability, testicular softening, fatigue, hot flashes and planned/recent surgery requiring prolonged immobilization. Aggravating factors include None. Relieving factors include family and Friends. Functional Status Date Functional Assessment No Information Medications Administered Medication Instructions Dosage Effective Dates (start - stop) Sta tus Comments No Information Instructions Date Instruction Additional Informati on No Information Assessments Type Assessment Date assessment Human immunodeficiency virus [HIV] couns eling assessment Encounter for screening for other metabo lic disorders assessment Endocrine disorder, unspecified 021 Goals Health Concern Goal Type Priority Status Date No Information Medical Equipment Description Device Horace Device Identifier Effective Eamon es (start - stop) Status No Information Mental Status Date Cognitive Assessment Orientation - Oriented to ti me, place, person, situation.Normal Orientation Health Concerns Observation Date No Information Concern Status Date No Information Physical Examination Exam Findings Details Neurological Normal Level of consciousne ss - Normal. Orientation - Normal. Psychiatric Normal Orientation - Armstrong ed to time, place, person & situation.
--- OUTSIDE RECORDS SUMMARY | 2020-06-18 21:06 | CCD ---
Author Author [facility] Organization [facility] Address Unknown Phone Unavailable Care Team Providers Care Grinder Operator Automatic Name Role Phone Alisha Cordon MD Unavailable [...] Arnold MD Unavailable Unavailable DAMARIS, E RUBEN WARP KNIT OPERATOR Unavailable Unavailable DAMARIS, E RUBEN WARP KNIT OPERATOR Unavailable Unavailable DAMARIS, E RUBEN WARP KNIT OPERATOR Unavailable Unavailable DAMARIS, E RUBEN WARP KNIT OPERATOR Unavailable Unavailable DAMARIS, E RUBEN WARP KNIT OPERATOR Unavailable Unavailable DAMARIS, E RUBEN WARP KNIT OPERATOR Unavailable Unavailable DAMARIS, E RUBEN WARP KNIT OPERATOR Unavailable Unavailable DAMARIS, E RUBEN WARP KNIT OPERATOR Unavailable Unavailable DAMARIS, E RUBEN WARP KNIT OPERATOR Unavailable Unavailable DAMARIS, E RUBEN WARP KNIT OPERATOR Unavailable Unavailable DAMARIS, E RUBEN WARP KNIT OPERATOR Unavailable Unavailable DAMARIS, E RUBEN WARP KNIT OPERATOR Unavailable Unavailable DAMARIS, E RUBEN WARP KNIT OPERATOR Unavailable Unavailable Hopkins, Ruben MUSIC ORCHESTRATOR MUSIC ORCHESTRATOR Unavailable Unavailable PRYBYLOWSKI, E UMER PA Unavailable [...] UMER PA Unavailable Unavailable Hopkins, F Ruben MUSIC ORCHESTRATOR-BC Unavailable Unavailable Hopkins, F Ruben MUSIC ORCHESTRATOR-BC Unavailable Unavailable Hopkins, F Ruben MUSIC ORCHESTRATOR-BC Unavailable Unavailable Hopkins, F Ruben MUSIC ORCHESTRATOR-BC Unavailable Unavailable Hopkins, F Ruben MUSIC ORCHESTRATOR-BC Unavailable Unavailable Hopkins, F Ruben MUSIC ORCHESTRATOR-BC Unavailable Unavailable Hopkins, F Ruben MUSIC ORCHESTRATOR-BC Unavailable Unavailable Hopkins, F Ruben MUSIC ORCHESTRATOR-BC Unavailable Unavailable Hopkins, F Ruben MUSIC ORCHESTRATOR-BC Unavailable Unavailable Hopkins, F Ruben MUSIC ORCHESTRATOR-BC Unavailable Unavailable Hopkins, F Ruben MUSIC ORCHESTRATOR-BC Unavailable Unavailable Hopkins, F Ruben MUSIC ORCHESTRATOR-BC Unavailable Unavailable Hopkins, F Ruben MUSIC ORCHESTRATOR-BC Unavailable Unavailable Hopkins, F Ruben MUSIC ORCHESTRATOR-BC Unavailable Unavailable Hopkins, F Ruben MUSIC ORCHESTRATOR-BC Unavailable Unavailable Hopkins, F Ruben MUSIC ORCHESTRATOR-BC Unavailable Unavailable Hopkins, F Ruben MUSIC ORCHESTRATOR-BC Unavailable Unavailable Hopkins, F Ruben MUSIC ORCHESTRATOR-BC Unavailable Unavailable Hopkins, F Ruben MUSIC ORCHESTRATOR-BC Unavailable Unavailable Hopkins, F Ruben MUSIC ORCHESTRATOR-BC Unavailable Unavailable Hopkins, F Ruben MUSIC ORCHESTRATOR-BC Unavailable Unavailable Hopkins, F Ruben MUSIC ORCHESTRATOR-BC Unavailable Unavailable [facility], SSCORDO SCORDO PA ANISHA Unavailable Unavaila ble Loredo, Adore Unavailable Unavailable Loredo, Adore Unavailable Unavailable Loredo, Adore Unavailable Unavailable Green WARP KNIT OPERATOR WARP KNIT OPERATOR, Emmie Unavailable Unavailable Green WARP KNIT OPERATOR WARP KNIT OPERATOR, Emmie Unavailable Unavailable Green WARP KNIT OPERATOR WARP KNIT OPERATOR, Emmie Unavailable Unavailable Corinne Brian PA Unavailable [...] Unavailable Snehal, Corinne Xiao PA Unavailable Unavailable KeaauCorinne Xiao PA Unavailable Unavailable KeaauCorinne Xiao PA Unavailable Unavailable Scordo, M Anisha [...] M Anisha PA Unavailable Unavailable Scordo, M Anihsa PA Unavailable Unavailable Scordo, M Anisha PA [...] Anisha PA Unavailable Unavailable Jamar, Ariella Airam WARP KNIT OPERATOR Unavailable Unavailable Jamar, Ariella Airam WARP KNIT OPERATOR Unavailable Unavailable Jamar, Ariella Airam WARP KNIT OPERATOR Unavailable Unavailable Jamar, Ariella Airam WARP KNIT OPERATOR Unavailable Unavailable Jamar, Ariella Airam WARP KNIT OPERATOR Unavailable Unavailable Jamar, Ariella Airam WARP KNIT OPERATOR Unavailable Unavailable Jamar, Ariella Airam WARP KNIT OPERATOR Unavailable Unavailable Jamar, Ariella Airam WARP KNIT OPERATOR Unavailable Unavailable Jamar, Ariella Airam WARP KNIT OPERATOR Unavailable Unavailable Jamar, Ariella Airam WARP KNIT OPERATOR Unavailable Unavailable LETTIERE, A MIGUEL ÁNGEL PA [...] is protected by Article 27-F of the [facility] Public Health law. If you continue you may have access to information: Regarding HIV / AIDS; Provided by facilities licensed or operated by the [facility] Office of Mental Health; or Provided by the [facility] Office for People With Developmental Disabilities. If such information is present, then the following [facility] mandated warning applies: This information has been [...] law may result in a fine or detention sentence or both. A general authorization for the release of medical or other information is NOT sufficient authorization for further disc losure. Allergies and Adverse Reactions Type Description Substance Reaction Status Data Source(s ) Drug allergy amoxicillin trihydrate AMOXICILLIN TRIHYDRATE Active [facility] ([facility]) Drug allergy clavulanate potassium POTASSIUM CLAVULANATE A ctive [facility]) Family History Family Member Name Family Member Gender Family Member Status Date o f Status Description Data Source(s) Unknown Unknown Problem [facility] ([facility]) Encounters Encounter Providers Location Date Indications Data Source(s ) Attender: Emmie Bryant NP WARP KNIT OPERATOR DUSTY [place] 0 06/13/2020 01:25:00 PM EST - 06/13/2020 [...] AM EST [facility] ([facility]) Attender: UMER Reynolds 03/29/2020 01:20:00 PM EST - 03/29/2020 01:20:00 PM EST [facility] ([facility]) Outpatient Attender: MIGUEL ÁNGEL stevens 03/20/2020 01:35:00 PM EST [facility] ([facility]) Attender: UMER Reynolds 03/14/2020 10:33:00 AM EDT - 03/14/2020 10:33:00 AM EDT [facility] ([facility]) Attender: Catalina Reynolds 1 01:07:00 PM EDT - 03/13/2020 01:07:00 PM EDT [facility] ([facility]) Attender: Catalina Reynolds 1 04:02:00 PM EDT - 03/10/2020 04:02:00 PM EDT [facility] ([facility]) Attender: Adore Reynolds 03/09 01:29:00 PM EDT - 03/09/2020 01:29:00 PM EDT [facility] ([facility]) Attender: Adore Mcmillan 020 09:10:00 AM EDT - 02/29/2020 09:10:00 AM EDT Gender Identity DisorderEndocrine disord er, unspecified [facility] ([facility]) Gender Identity Disorder Endocrine disorder, unspecified Attender: Adore Loredo DUSTY Reynolds 02/24 09:50:00 AM EDT - 02/25/2020 09:50:00 AM EDT Encounter for screening for oth suspecte d endocrine disorderEncounter for screening for lipoid disordersEncounter for screening for other metabolic disordersEncntr screen for dis of the bld/bld-form org/immun mechnsmGender Identity Disorder [facility] ([facility]) Encounter for screening for oth suspecte d endocrine disorder Encounter for screening for lipoid disor ders Encounter for screening for other metabo lic disorders Encntr screen for dis of the bld/bld-for m org/immun mechnsm Gender Identity Disorder Outpatient Attender: Anisha POLLARD 02/21/2020 12:00:11 PM EDT [facility] Outpatient Attender: OTTO POLLARD 02/21/2020 12:00:08 PM EDT [facility] Outpatient Attender: Anisha POLLARD 02/21/2020 10:44:00 AM EDT [facility] Outpatient Attender: SCOT POLLARD 02/11/2020 11:01:02 AM EDT [facility] Attender: UMER Reynolds 02/01/2020 08:41:00 AM EDT - 02/01/2020 08:41:00 AM EDT [facility] ([facility]) Attender: Catalina Mcmillan 01:00:00 PM EDT - 01/31/2020 01:00:00 PM EDT [facility] ([facility]) Attender: RUBEN Mcmillan 11/08 09:30:00 AM EDT - 11/09/2019 09:30:00 AM EDT Gender Identity Disorder [facility] ([facility]) Gender Identity Disorder Attender: RUBEN Reynolds 09:10:00 AM EDT - 11/02/2019 09:10:00 AM EDT [facility] ([facility]) Outpatient Attender: MIGUEL ÁNGEL stevens 10/27/2019 10:30:00 AM EDT [facility] ([facility]) Attender: RUBEN Reynolds 08/2019 11:52:00 AM EDT - 10/21/2019 11:52:00 AM EDT [facility] ([facility]) Attender: RUBEN Reynolds 09:21:00 AM EDT - 10/15/2019 09:21:00 AM EDT [facility] ([facility]) Attender: RUBEN Reynolds 11:48:00 AM EDT - 10/14/2019 11:48:00 AM EDT [facility] ([facility]) Attender: Xiao Mcmillan 09/17 09:45:00 AM EDT - 10/08/2019 09:45:00 AM EDT Gender Identity Disorder [facility] ([facility]) Gender Identity Disorder Attender: RUBEN Reynolds 10:00:00 AM EDT - 10/07/2019 10:00:00 AM EDT Encounter for oth general cnsl and advic e on contraceptionHuman immunodeficiency virus [HIV] counselingGender Identity Disorder [facility] ([facility]) Encounter for oth general cnsl and advic e on contraception Human immunodeficiency virus [HIV] couns eling Gender Identity Disorder Outpatient Attender: SCOT POLLARD 10/04/2019 07:45:01 AM EDT [facility] Attender: RUBEN Reynolds 01:47:00 PM EDT - 10/01/2019 01:47:00 PM EDT [facility] ([facility]) Outpatient Attender: SCOT POLLARD 09/27/2019 11:36:01 AM EDT [facility] Outpatient Attender: SCOT POLLARD 09/27/2019 11:20:01 AM EDT [facility] Outpatient Attender: Ruben TOWNSENDP-BC FP 07/27/2019 10: 02:02 AM EDT [facility] Outpatient Attender: SCOT POLLARD 07/27/2019 10:00:03 AM EDT [facility] Outpatient Attender: SCOT ELLISON FP 07/27/2019 09:57:03 AM EDT [facility] Outpatient Attender: SCOT POLLARD 07/27/2019 09:52:01 AM EDT [facility] Outpatient Attender: SCOT POLLARD 07/27/2019 09:24:00 AM EDT [facility] Outpatient Attender: SCOT POLLARD 07/27/2019 09:14:00 AM EDT [facility] Outpatient Attender: SCOT POLLARD 07/27/2019 09:10:00 AM EDT [facility] Attender: RUBEN Reynolds 10/2019 10:49:00 AM EST - 07/23/2019 10:49:00 AM EST [facility] ([facility]) Attender: RUBEN Reynolds 09/2019 08:24:00 AM EST - 07/22/2019 08:24:00 AM EST [facility] ([facility]) Attender: RUBEN Reynolds 07:17:00 AM EST - 07/16/2019 07:17:00 AM EST [facility] ([facility]) Outpatient Attender: SCOT POLLARD 07/06/2019 03:09:00 PM EST [facility] Attender: Airam Kaba 10:30:00 AM EST - 07/06/2019 10:30:00 AM EST Encounter for oth general cnsl and advic e on contraceptionTranssexualismEndocrine disorder, unspecifiedHuman immunodeficiency virus [HIV] counselingOther sex counseling [facility] ([facility]) Encounter for oth general cnsl and advic e on contraception Transsexualism Endocrine disorder, unspecified Human immunodeficiency virus [HIV] couns eling Other sex counseling Outpatient 06/28/2019 04:12:00 PM EST [facility] Outpatient Attender: SCOT POLLARD 06/16/2019 09:01:08 PM EST [facility] Medications Medication Brand Name Start Date Product Form Dose Route Admi nistrative Instructions Pharmacy Instructions Status Indications Reaction Description Data Source(s) Estradiol 1 MG Oral Tablet estradiol 1 mg tablet estradiol 1 mg tablet 06/13/2020 12:00:00 AM EST active 2 tabs PO BID. Allow tab to dissolve under your tongue x 30 min before swallowing. Max dose 4mg. [facility]) Finasteride 1 MG Oral Tablet finasteride 1 mg tablet finaste ride 1 mg tablet 06/13/2020 12:00:00 AM EST 1 {tablet} ORAL active take 1 tablet by oral route 3 times every day [facility] ([facility]) Amoxicillin 875 MG Oral Tablet Amoxicillin 03/20/2020 12:00:00 AM EST active [facility]) Finasteride 1 MG Oral Tablet finasteride 1 mg tablet finaste ride 1 mg tablet 03/09/2020 12:00:00 AM EDT 1 {tablet} ORAL completed take 1 tablet by oral route 2 times every day [facility]) Medication administered onsite Finasteride 1 MG Oral Tablet finasteride 1 mg tablet finaste ride 1 mg tablet 03/09/2020 12:00:00 AM EDT 1 {tablet} ORAL active take 1 tablet by oral route 3 times every day [facility]) Estradiol 1 MG Oral Tablet estradiol 1 mg tablet estradiol 1 mg tablet 03/09/2020 12:00:00 AM EDT active 2 tabs PO BID. Allow tab to dissolve under your tongue x 30 min before swallowing. Max dose 4mg. [facility] ([facility]) Finasteride 5 MG Oral Tablet finasteride 5 mg tablet finaste ride 5 mg tablet 02/01/2020 12:00:00 AM EDT 0.5 {tablet} ORAL complete d take 0.5 tablet by oral route every day [facility] ([facility]) Estradiol 1 MG Oral Tablet estradiol 1 mg tablet estradiol 1 mg tablet 02/01/2020 12:00:00 AM EDT active 2 tabs po in morning and 1 tab po every evening. Allow tab to dissolve under your tongue x 30 min before swallowing. Max dose 3mg. [facility] ([facility]) Doxycycline Monohydrate 100 MG Oral Tablet Doxycycline Monoh ydrate 10/27/2019 12:00:00 AM EDT ORAL completed [facility] ([facility]) Azelastine hydrochloride 0.5 MG/ML Ophthalmic Solution Azelastine HCL (Ophthalmic) 10/27/2019 12:00:00 AM EDT completed [facility] ([facility]) Tobramycin 3 MG/ML Ophthalmic Solution Tobramycin 10/27/2019 12:0 0:00 AM EDT completed [facility] ([facility]) Estradiol 1 MG Oral Tablet estradiol 1 [...] x 30 min before swallowing. [facility] ([facility]) Finasteride 1 MG Oral Tablet finasteride 1 mg tablet finaste ride 1 mg tablet 10/07/2019 12:00:00 AM EDT 1.00 {tablet} ORAL complet ed take 1 tablet by oral route every day [facility] ([facility]) Medication administered onsite Finasteride 1 MG Oral Tablet finasteride 1 mg tablet finaste ride 1 mg tablet 10/07/2019 12:00:00 AM EDT 1 {tablet} ORAL active take 1 tablet by oral route 2 times every day [facility] ([facility]) Estradiol 1 MG Oral Tablet estradiol 1 mg tablet estradiol 1 mg tablet 07/16/2019 12:00:00 AM EST active take 1 tablet by oral route 2 times every day. Allow tab to dissolve under your tongue x 30 min before swallowing. [facility] ([facility]) Finasteride 1 MG Oral Tablet finasteride 1 mg tablet finaste ride 1 mg tablet 07/16/2019 12:00:00 AM EST 1.00 {tablet} ORAL active take 1 tablet by oral route every day [facility] ([facility]) aripiprazole 10 MG Oral Tablet [Abilify] Abilify 10 mg tablet Abilify 10 mg tablet 1.00 {tablet} ORAL completed aripiprazole 10 MG Oral Tablet [Abilify] [facility] ([facility]) 24 HR venlafaxine 37.5 MG Extended Relea se Oral Capsule [Effexor] Effexor XR 37.5 mg capsule,extended release Effexor XR 37.5 mg capsule,extended release 1.00 {capsule} ORAL completed 24 HR v enlafaxine 37.5 MG Extended Release Oral Capsule [Effexor] [facility] ([facility]) Insurance Providers Payer name Policy type / Coverage type Policy ID Covered libertarian ID Covered libertarian's relationship to raza Policy Raza Plan Information [facility] [id number] SP [id number] [employer] [place] PPO 302/307 [id number] SP [id number] [facility] P [id number] S [id number] DARIUS [id number] SP [id number] [facility] P [id number] S [id number] [employer] [place] PPO 302/307 [id number] SP [id number] [place] [id number] SP [id number] DARIUS [facility] O [id number] S [id number] [facility] P [id number] S [id number] [facility] P [id number] S [id number] [facility] P [id number] S [id number] [employer] O [id number] S [id number] PMA [employer] STEVEN [id number] SP [id number] [employer] [place] P [id number] S [id number] [employer] [place] P [id number] S [id number] [facility] P [id number] S [id number] DARIUS [id number] SP [id number] SELF PAY ONLY UNAVAILABLE SP UNAV AILABLE [facility] [id number] Problems, Conditions, and Diagnoses Code Display Name Description Problem Type Effective Dates Data Source(s) 401.1 Hypertension, benign essential, mild Hypertensio n, benign essential, mild 02/21/2020 11:59:10 AM EDT [facility] 268.9 Vitamin D deficiency Vitamin D deficiency 02/20 11:59:10 AM EDT [facility] 794.5 Thyroid function tests abnormal Thyroid function tests abnormal 02/21/2020 11:59:10 AM EDT [facility] R41.3 Other amnesia Memory lapses 02/21/2020 11:59:10 AM EDT [facility] V85.41 BMI 40.0-44.9 BMI 40.0-44.9 02/21/2020 11:59:10 AM EDT [facility] [id number] Post-traumatic stress disorder, unspecif ied Post-traumatic stress disorder, unspecified 02/21/2020 11:59:10 AM EDT [facility] 301.83 Borderline personality disorder Borderline personality disorder [facility] Procedure Description Date Indications Data Source(s) CVR Paper Ruler.Svc. STI / H 06/13/2020 12:00:[address] [facility] - 06/13/2020 12:00:00 AM EST [facility] ([facility]) CVR Paper Ruler.Svc. Other 06/13/2020 12:00:00 AM EST - 2020 12:00:00 AM EST [facility] ([facility]) CVR Paper Ruler.Svc. Contraceptive 06/13/2020 12 :00:00 AM EST - 06/13/2020 12:00:00 AM EST [facility] ([facility]) CVR Med.Svc. Height/Weight 06/13/2020 12 :00:00 AM EST - 06/13/2020 12:00:00 AM EST [facility] ([facility]) CVR Blood Pressure 06/13/2020 12:00:00 AM EST - 2020 12:00:00 AM EST [facility] ([facility]) EST PT TG DETAILED 06/13/2020 12:00:00 AM EST - 2020 12:00:00 AM EST [facility] ([facility]) HEPATIC FUNCTION PANEL 02/29/2020 12:00: 00 AM EDT - 02/29/2020 12:00:00 AM EDT [facility] ([facility]) LIPID PANEL 02/29/2020 12:00:00 AM EDT - 02/29/2020 1 2:00:00 AM EDT [facility] ([facility]) CVR Paper Ruler.Svc. STI / H 02/29/2020 12:00:00 AM EDT - 02/29/2020 12:00:00 AM EDT [facility] ([facility]) CVR Paper Ruler.Svc. Other 02/29/2020 12:00:00 AM EDT - 2019 12:00:00 AM EDT [facility] ([facility]) CVR Med.Svc. Height/Weight 02/29/2020 12 :00:00 AM EDT - 02/29/2020 12:00:00 AM EDT [facility] ([facility]) CVR Blood Pressure 02/29/2020 12:00:00 AM EDT - 2019 12:00:00 AM EDT [facility] ([facility]) ROUTINE VENIPUNCTURE 02/29/2020 12:00:00 AM EDT - 02/29/2020 12:00:00 AM EDT [facility] ([facility]) Injection Or Lab Only Visit Est 02/29/20 20 12:00:00 AM EDT - 02/29/2020 12:00:00 AM EDT [facility] ([facility]) ASSAY OF TOTAL TESTOSTERONE 02/29/2020 1 2:00:00 AM EDT - 02/29/2020 12:00:00 AM EDT [facility] ([facility]) METABOLIC PANEL TOTAL CA 02/29/2020 12:0 0:00 AM EDT - 02/29/2020 12:00:00 AM EDT [facility] ([facility]) ASSAY OF ESTRADIOL 02/29/2020 12:00:00 AM EDT - 2019 12:00:00 AM EDT [facility]) CVR Paper Ruler.Svc. Other 02/25/2020 12:00:00 AM EDT - 2019 12:00:00 AM EDT [facility] ([facility]) EST PT TG EXP PROB FOCUSED 02/25/2020 12 :00:00 AM EDT - 02/25/2020 12:00:00 AM EDT [facility] ([facility]) ASSAY OF TOTAL TESTOSTERONE 11/09/2019 1 2:00:00 AM EDT - 11/09/2019 12:00:00 AM EDT [facility] ([facility]) ASSAY OF ESTRADIOL 11/09/2019 12:00:00 AM EDT - 2019 12:00:00 AM EDT [facility] ([facility]) LIPID PANEL 11/09/2019 12:00:00 AM EDT - 11/09/2019 1 2:00:00 AM EDT [facility] ([facility]) CVR Paper Ruler.Svc. Other 11/09/2019 12:00:00 AM EDT - 2019 12:00:00 AM EDT [facility] ([facility]) CVR Paper Ruler.Svc. Contraceptive 11/09/2019 12 :00:00 AM EDT - 11/09/2019 12:00:00 AM EDT [facility] ([facility]) CVR Med.Svc. Height/Weight 11/09/2019 12 :00:00 AM EDT - 11/09/2019 12:00:00 AM EDT [facility] ([facility]) CVR Blood Pressure 11/09/2019 12:00:00 AM EDT - 2019 12:00:00 AM EDT [facility] ([facility]) Injection Or Lab Only Visit Est 11/09/19 20 12:00:00 AM EDT - 11/09/2019 12:00:00 AM EDT [facility] ([facility]) ROUTINE VENIPUNCTURE 11/09/2019 12:00:00 AM EDT - 11/09/2019 12:00:00 AM EDT [facility] ([facility]) CVR Paper Ruler.Svc. Other 10/08/2019 12:00:00 AM EDT - 2019 12:00:00 AM EDT [facility] ([facility]) CVR Med.Svc. Height/Weight 10/08/2019 12 :00:00 AM EDT - 10/08/2019 12:00:00 AM EDT [facility] ([facility]) CVR Blood Pressure 10/08/2019 12:00:00 AM EDT - 2019 12:00:00 AM EDT [facility] ([facility]) MA Only Visit Est 10/08/2019 12:00:00 AM EDT - 020 12:00:00 AM EDT [facility] ([facility]) ROUTINE VENIPUNCTURE 10/08/2019 12:00:00 AM EDT - 10/08/2019 12:00:00 AM EDT [facility] ([facility]) CVR Paper Ruler.Svc. STI / H 10/07/2019 12:00:00 AM EDT - 10/07/2019 12:00:00 AM EDT [facility] ([facility]) CVR Paper Ruler.Svc. Other 10/07/2019 12:00:00 AM EDT - 2019 12:00:00 AM EDT [facility] ([facility]) CVR Paper Ruler.Svc. Contraceptive 10/07/2019 12 :00:00 AM EDT - 10/07/2019 12:00:00 AM EDT [facility] ([facility]) LIPIDS PROFILE 10/07/2019 12:00:00 AM EDT - 10/07/2019 12:00:00 AM EDT [facility] ([facility]) TESTOSTERONE 10/07/2019 12:00:00 AM EDT - 10/07/2019 1 2:00:00 AM EDT [facility] ([facility]) ASSAY OF ESTRADIOL 10/07/2019 12:00:00 AM EDT - 2019 12:00:00 AM EDT [facility] ([facility]) EST PT TG EXP PROB FOCUSED 10/07/2019 12 :00:00 AM EDT - 10/07/2019 12:00:00 AM EDT [facility] ([facility]) Results ID Date Data Source [id number] 02/21/2020 10:58:12 AM EDT [facility] Measurements & CalculationsHeight: 70 inches (5 ft. [...] [facility]: [facility]2020Have you seen another healthcare provider? Yes - Mental Health ([facility])Healthcare provider date reported today: 02/15/2020Have [...] adopted so unsureSocial/Personal History:[facility] Advised to Quit/Tobacco Education: YesChief Complaintfollow-up [...] during this visit, including review of any [id number] medications, herbal therapies, and/or supplements.Allergy ReviewAllergy List [...] GoodAssessment & Plan Problems:Added: BMI 40.0-44.9 (ICD-V85.41) (YMT92-R95.41)Post-traumatic stress disorder, unspecified (QIZ78-L59.10) Assessment: following with psychBorderline personality disorder (ICD-301.83) (UQY34-Y01.3) Assessment: following with psychMemory lapses (RDR86-U34.3) Assessment: psych vs. neurologic issue. will send neuro referral, continue current psychiatric care. discussed s/s that would warrant ED eval.Thyroid function tests abnormal (ICD-794.5) (QPY54-T83.6) Assessment: will recheckVitamin D deficiency (ICD-268.9) (SFF56-F54.9) Assessment: will recheckHypertension, benign essential, mild (ICD-401.1) (ATS58-B32) Assessment: sent lisinopril, labs orderedAssessment not Saved Hypertension; benign essential; mild (NIS46-J50): Comment Onlysent lisinopril, labs ordered. discusse lifestyle [...] (AMOXICILLIN-POT CLAVULANATE) (AMOXICILLIN-POT CLAVULANATE) (Critical)Orders:COMP METABOLIC PANEL [CPT-50736] CBC W/DIFF [CPT-52151] HgBA1c [CPT-67752] LIPID PANEL [CPT-23625] TSH [CPT-36481] T-4 free [CPT-27366] Vitamin D 250H Unspecified [CPT-55074] Thyroid Peroxidase Antibody [CPT_86376] Thyroglobulin antibody [CPT-00350] TSI-Thyroid stimulating immune globulins [CPT-18855] Neurology Consult [CPT-58738] Ofc Vst, Est Level IV [CPT-72486] Follow-Up Return to clinic: in 30 days for follow upAdditional Follow-Up: TFT, BPPlan Comments: declines flu shot today.Clinical Visit Summary DeclinedMedications:LISINOPRIL 20 MG ORAL TABLET (LISINOPRIL) Take one tab po QD #30[Tablet] x 5 Route:ORAL Entered and Authorized by: Anisha ZAPATA Method used: Electronically to [facility]* (retail) [place] [address] Note to Pharmacy: Route: ORAL; RxID: [id number] FENOFIBRATE 145 MG ORAL TABLET (FENOFIBRATE) Take one tab po QD #30[Tablet] x 5 Route:ORAL Entered and Authorized by: Anisha ZAPATA Method used: Electronically to [facility]* (retail) [place] [address] RxID: [id number] signed by Anisha ZAPATA on 02/21/2020 at 11:59 AM Name Value Range Interpretation Code Description Data Roxane rce(s) Supporting Document(s) ID Date Data Source [id number] 07/27/2019 09:21:07 AM EDT [facility] Measurements & CalculationsHeight: 70 inches (5 ft. [...] been admitted to the hospital? Yes - [facility] IMHUHospital admission date reported today: 06/16/2019Have you been to an emergency room (ER) or urgent care clinic? [facility] or [facility] care date reported today: 06/16/2019Have you seen another healthcare provider? Yes [facility]? NoIntake [...] adopted so unsureSocial/Personal History:live with girlfriendstudent [facility] Advised to Quit/Tobacco Education: YesChief Complaintfollow-up visit: [facility] Illness (HPI)I, Guillermo Rodriguez MA, am scribing for, and in the presence of, Charlie Valencia, DO pt here today to f/u hospital discharge for Mental Health at [facility]. pt staes he tried to [...] during this visit, including review of any [id number]-crc-oxbcclm medications, herbal therapies, and/or supplements.Allergy ReviewAllergy List [...] Assessment not SavedMixed anxiety and depressive disorder (RGI96-H28.8): no longer suicidalMedications:LISINOPRIL 20 MG ORAL TABLETFENOFIBRATE 145 MG ORAL TABLETSTRATTERA 60 MG ORAL CAPSULEMedication Changes:Removed:BUSPIRONE HCL 10 MG ORAL TABLET-Take one BID, SERTRALINE HCL 100 MG ORAL TABLET-One tablet by mouth every dayAllergies:AUGMENTIN (AMOXICILLIN-POT CLAVULANATE) (AMOXICILLIN-POT CLAVULANATE) (Critical)Orders:Adult - Ofc Vst, EST, Level III [CPT-81867] ] Name Value Range Interpretation Code Description Data Roxane rce(s) Supporting Document(s) Procedure Social History Code Duration Value Status Description Data Source(s ) 06/13/2020 12:00:00 AM EST Light cigarette smoker (1-9 cigs/day) completed Light cigarette smoker (1-9 cigs/day) [facility] ([facility]) Smoking 06/13/2020 12:00:00 AM EST Light tobacco smoker comple sourav Light tobacco smoker [facility] ([facility]) Vital Signs ID Date Data Source UNK Name Value Range Interpretation Code Description Data Source(s) Body height 185.42 cm 185.42 cm [facility] ([facility]) Body mass index (BMI) [Ratio] 37.3 kg/m2 37.3 k g/m2 [facility] ([facility]) Body height 73 [in_i] 73 [in_i] [facility] ([facility]) 6'1" Body weight 283.00 [lb_av] 283.00 [lb_av] MEDEN T ([facility]) Body temperature 98.2 [degF] 98.2 [degF] [facility] Oxygen saturation in Arterial blood by Pulse oximetry 97 % 97 % [facility] ([facility]) Respiratory rate 16 /min 16 /min [facility] Heart rate 104 /min 104 /min [facility] ([facility] [place], [facility]) Diastolic blood pressure 95 mm[Hg] 95 mm[Hg] MED[facility] ([place] [facility] [place], [facility]) Systolic blood pressure 150 mm[Hg] 150 mm[Hg] M EDENT ([facility]) Body mass index (BMI) [Ratio] 36.49 kg/m2 Overweight 36.49 kg/m2 [facility] ([facility]) Diastolic blood pressure 76 mm[Hg] 76 mm[Hg] [facility] ([facility] [place] [facility] Systolic blood pressure 127 mm[Hg] 127 mm[Hg] N ext[facility] ([facility] [facility]) Body weight 125.464 kg 125.464 kg [facility] ([facility] [place] [facility] Body height 185.42 cm 185.42 cm [facility] ([facility] [place] [facility] Body mass index (BMI) [Ratio] 37.34 kg/m2 Overweight 37.34 kg/m2 [facility] ([facility]) Body weight 128.367 kg 128.367 kg [facility] ([facility] [place] [facility] Body height 185.42 cm 185.42 cm [facility] ([facility] [place]) Body mass index (BMI) [Ratio] 36.31 kg/m2 Overweight 36.31 kg/m2 [facility] ([facility] [facility]) Diastolic blood pressure 82 mm[Hg] 82 mm[Hg] [facility] ([facility]) Systolic blood pressure 122 mm[Hg] 122 mm[Hg] N ext[facility] ([facility] [facility]) Body weight 124.829 kg 124.829 kg [facility] ([facility]) Body height 185.42 cm 185.42 cm [facility]) Body mass index (BMI) [Ratio] 23.4 kg/m2 23.4 k g/m2 [facility] ([place] [facility] [place], [facility]) Body height 74 [in_i] 74 [in_i] [facility]) 6'2" Body weight 182.00 [lb_av] 182.00 [lb_av] MAICOLEN T ([facility], [facility]) Body temperature 98.3 [degF] 98.3 [degF] [facility] ([facility]) Oxygen saturation in Arterial blood by Pulse oximetry 97 % 97 % [facility]) Respiratory rate 20 /min 20 /min [facility] ( [facility]) Heart rate 108 /min 108 /min [facility] ([facility]) Diastolic blood pressure 91 mm[Hg] 91 mm[Hg] [facility] ([facility]) Systolic blood pressure 149 mm[Hg] 149 mm[Hg] M EDENT ([facility]) Body mass index (BMI) [Ratio] 37.07 kg/m2 Overweight 37.07 kg/m2 [facility] ([facility]) Body temperature 36.94 Kamini 36.94 Kamini [facility] ([facility]) Heart rate 80 /min 80 /min [facility] ([facility]) Diastolic blood pressure 75 mm[Hg] 75 mm[Hg] [facility] ([facility]) Systolic blood pressure 121 mm[Hg] 121 mm[Hg] N ext[facility] ([facility]) Body weight 127.459 kg 127.459 kg [facility] Body height 185.42 cm 185.42 cm [facility] ([facility]) Patient Treatment Plan of Care Planned Activity Planned Date Details Description Data Source (s) Estradiol 1 MG Oral Tablet 06/13/2020 12:00:00 AM EST [facility] ([facility]) Finasteride 1 MG Oral Tablet 06/13/2020 12:00:00 AM EST [facility] ([facility]) Finasteride 1 MG Oral Tablet 03/09/2020 12:00:00 AM EDT [facility] ([facility]) Estradiol 1 MG Oral Tablet 03/09/2020 12:00:00 AM EDT [facility] ([facility]) Finasteride 1 MG Oral Tablet 03/09/2020 12:00:00 AM EDT [facility] ([facility]) Finasteride 5 MG Oral Tablet 02/01/2020 12:00:00 AM EDT [facility] ([facility] [place] [facility]) Estradiol 1 MG Oral Tablet 02/01/2020 12:00:00 AM EDT [facility] ([facility]) Estradiol 1 MG Oral Tablet 10/15/2019 12:00:00 AM EDT [facility] ([facility]) Finasteride 1 MG Oral Tablet 10/07/2019 12:00:00 AM EDT [facility] ([facility]) Estradiol 1 MG Oral Tablet 10/07/2019 12:00:00 AM EDT [facility] ([facility]) Finasteride 1 MG Oral Tablet 10/07/2019 12:00:00 AM EDT [facility] ([facility]) Estradiol 1 MG Oral Tablet 07/16/2019 12:00:00 AM EST [facility] ([facility]) Finasteride 1 MG Oral Tablet 07/16/2019 12:00:00 AM EST [facility] ([facility]) 24 HR venlafaxine 37.5 MG Extended Release Oral Capsule [Effexor] [facility] ([facility]) aripiprazole 10 MG Oral Tablet [Abilify] [facility] ([facility])
[2020-06-18 21:23] VITALS: BP 137/86
--- NOTE | 2020-06-18 21:30 | REPVR ---
PROCEDURE INFORMATION: Exam: XR Chest, 2 Views Exam date and time: 06/18/2020 8:51 PM Age: 30 years old Clinical indication: Shortness of breath TECHNIQUE: Imaging protocol: XR of the chest Views: 2 views. COMPARISON: CR Chest, 2 view PA, Lat 06/17/2019 12:32 AM FINDINGS: Lungs: Unremarkable. No consolidation. No pulmonary edema. Pleural spaces: Unremarkable. No pleural effusion. No pneumothorax. Heart/Mediastinum: Unremarkable. No cardiomegaly. Bones/joints: Unremarkable. Soft tissues: There are probable bilateral breast implants. IMPRESSION: No acute findings. Electronically signed by: Jacob Meehan On 06/18/2020 21:30:31 PM
== END 2020-06-18 22:16 | disposition home or self-care (01) ==
LOC: M ED 19:54
DX: Z77.098 Contact with and (suspected) exposure to other hazardous, chiefly nonmedicinal, chemicals (principal); F17.200 Nicotine dependence, unspecified, uncomplicated

== ENCOUNTER 2021-05-19 10:32 | Emergency (ER) | payer BC, OTHER ==
[~2021-05-19] VITALS: Ht 185.4 cm; Wt 130.3 kg
[~2021-05-19 10:32] MED LIST changes: -LISI-538; -LISI-538 PO; +LISI20TA33; +LISI20TA33 PO
[2021-05-19 11:23] VITALS: BP 176/99
--- NOTE | 2021-05-19 11:49 | REP ---
INDICATION: trauma COMPARISON: None. TECHNIQUE: AP, lateral, bilateral oblique, and coned-down views of the lumbar spine. FINDINGS: Alignment and lordosis maintained. Vertebral bodies are intact. No acute fracture/compression injury or subluxation. Disc spaces are relatively normal/age-appropriate. No obvious spondylolysis or spondylolisthesis. IMPRESSION: Normal Lumbosacral Spine series. <Electronically signed by Skinny Mann > 05/19/21 1141
[2021-05-19] MEDS ORDERED: METH-1165 PO (12:01)
[2021-05-19] MEDS ORDERED: NAPR-837 PO (12:01)
== END 2021-05-19 12:17 | disposition home or self-care (01) ==
LOC: M ED 10:32
DX: S33.9XXA Sprain of unspecified parts of lumbar spine and pelvis, initial encounter (principal); W10.8XXA Fall (on) (from) other stairs and steps, initial encounter; Y92.018 Other place in single-family (private) house as the place of occurrence of the external cause; M62.830 Muscle spasm of back; F33.9 Major depressive disorder, recurrent, unspecified; F43.10 Post-traumatic stress disorder, unspecified; F41.9 Anxiety disorder, unspecified; Z79.899 Other long term (current) drug therapy; Z88.0 Allergy status to penicillin; Z88.5 Allergy status to narcotic agent; Z88.8 Allergy status to other drugs, medicaments and biological substances

== ENCOUNTER → 2021-10-04 | Outpatient (REF) | payer BC ==
[~2021-10-04] MED LIST changes: +METH-1165 PO
== END ==
LOC: M LAB REF 12:18
PROVIDERS: ATTEND Physician Assistant
DX: J06.9 Acute upper respiratory infection, unspecified (principal); R53.83 Other fatigue

== ENCOUNTER → 2022-09-26 | Outpatient (REF) | payer OTHER, BC ==
[~2022-09-26] MED LIST changes: -CLOZ25TA3 PO; +CLOZ25TA6 PO
== END ==
LOC: M LAB REF 12:01
PROVIDERS: ATTEND Physician Assistant
DX: B34.9 Viral infection, unspecified (principal)

== ENCOUNTER → 2022-10-17 | Outpatient (REF) | payer OTHER, BC ==
[2022-10-17 16:41] LABS: BASO # 0.1 10^3/uL (0.0-0.2); BASO % 0.5 % (0.0-1.0); EOS # 0.1 10^3/uL (0.0-0.5); EOS % 1.2 % (0.0-3.0); HEMATOCRIT 39.7 % (42.0-52.0); HEMOGLOBIN 13.3 g/dl (13.5-17.5); LYMPH # 1.7 10^3/uL (1.5-5.0); LYMPH % 18.9 % (24.0-44.0); MEAN CORPUSCULAR HEMOGLOBIN 29.4 pg (27.0-33.0); MEAN CORPUSCULAR HGB CONC 33.5 g/dl (32.0-36.5); MEAN CORPUSCULAR VOLUME 87.6 fl (80.0-96.0); MONO # 0.5 10^3/uL (0.0-0.8); MONO % 5.2 % (2.0-8.0); NEUTROPHILS # 6.7 10^3/uL (1.5-8.5); NEUTROPHILS % 72.9 % (36.0-66.0); PLATELET COUNT, AUTOMATED 277 10^3/uL (150-450); RED BLOOD COUNT 4.53 10^6/uL (4.30-6.10); WHITE BLOOD COUNT 9.2 10^3/uL (4.0-10.0)
[2022-10-17 16:53] LABS: HEMOGLOBIN A1c 5.4 % (4.0-6.0)
[2022-10-17 17:08] LABS: ALBUMIN 3.3 G/DL (3.2-5.2); ALKALINE PHOSPHATASE 70 U/L (46-116); ALT/SGPT 29 U/L (7.0-40); AST/SGOT 20 U/L (<34); BILIRUBIN,TOTAL 0.4 MG/DL (0.3-1.2); BLOOD UREA NITROGEN 11 MG/DL (9-23); CALCIUM LEVEL 8.6 MG/DL (8.5-10.1); CARBON DIOXIDE LEVEL 26 MMOL/L (20-31); CHLORIDE LEVEL 105 MMOL/L (98-107); CHOLESTEROL LEVEL 187 MG/DL (<200); CHOLESTEROL RISK RATIO 7.45 (<5); CREATININE FOR GFR 0.71 MG/DL (0.70-1.30); GLOMERULAR FILTRATION RATE > 60.0 (>60); GLUCOSE, FASTING 128 MG/DL (60-100); HDL CHOLESTEROL 25.1 MG/DL (>40); NON-HDL-C 161.9 MG/DL; POTASSIUM SERUM 4.1 MMOL/L (3.5-5.1); SODIUM LEVEL 138 MMOL/L (136-145); TRIGLYCERIDES LEVEL 400 MG/DL (<150)
[2022-10-17 17:09] LABS: THYROID STIMULATING HORMONE 1.072 uIU/ML (0.55-4.78)
[2022-10-17 17:10] LABS: TOTAL 25(OH) VITAMIN D 10.8 NG/ML (20.0-100.0)
== END ==
LOC: M LAB REF 16:20
PROVIDERS: ATTEND Nurse Practitioner Family
DX: Z13.228 Encounter for screening for other metabolic disorders (principal)

== ENCOUNTER → 2023-03-03 | Outpatient (REF) | payer OTHER, BC ==
[2023-03-03 13:43] LABS: CHOLESTEROL RISK RATIO 8.22 (<5); HDL CHOLESTEROL 27.1 MG/DL (>40); LDL CHOLESTEROL 123.7 MG/DL (<100); NON-HDL-C 195.9 MG/DL
== END ==
LOC: M LAB REF 12:28
PROVIDERS: ATTEND Nurse Practitioner Family
DX: E78.5 Hyperlipidemia, unspecified (principal)

== ENCOUNTER → 2023-06-23 | Outpatient (REF) | payer OTHER, BC ==
[~2023-06-23] MED LIST changes: +RISP-105 PO; -RISP-8 PO
[2023-06-23 17:26] LABS: CHOLESTEROL LEVEL 172 MG/DL (<200); CHOLESTEROL RISK RATIO 6.44 (<5); HDL CHOLESTEROL 26.7 MG/DL (>40); LDL CHOLESTEROL 81.5 MG/DL (<100); NON-HDL-C 145.3 MG/DL; TRIGLYCERIDES LEVEL 319 MG/DL (<150)
[2023-06-23 17:58] LABS: HIV 1&2 SCREEN NEGATIVE (NEGATIVE)
== END ==
LOC: M LAB REF 16:08
PROVIDERS: ATTEND Nurse Practitioner Family
DX: Z11.4 Encounter for screening for human immunodeficiency virus [HIV] (principal); E78.5 Hyperlipidemia, unspecified

== ENCOUNTER 2023-09-23 14:36 | Emergency (ER) | payer BC, MEDICAID, OTHER ==
[~2023-09-23] VITALS: Ht 175.3 cm; Wt 132.0 kg
[~2023-09-23 14:36] MED LIST changes: -FINA1TAB12 PO; +FINA1TAB4 PO; -RISP-7 PO; +RISP0.5T82 PO
[2023-09-23] MEDS ORDERED: LURA20TA (15:02)
[2023-09-23] MEDS ORDERED: SPIR100T3 (15:02)
[2023-09-23] MEDS ORDERED: LISI10TA24 (15:02)
[2023-09-23] MEDS ORDERED: AMPH1TAB2 (15:02)
[2023-09-23] MEDS ORDERED: ATOR1TAB21 (15:02)
[2023-09-23] MEDS ORDERED: LATU20TA (15:02)
[2023-09-23] MEDS ORDERED: ERGO500029 (15:02)
[2023-09-23] MEDS ORDERED: ESTR1DIS (15:02)
[2023-09-23 15:46] LABS: BASO # 0.1 10^3/uL (0.0-0.2); BASO % 0.6 % (0.0-1.0); EOS % 0.1 % (0.0-3.0); HEMATOCRIT 50.4 % (42.0-52.0); HEMOGLOBIN 18.1 g/dl (13.5-17.5); LYMPH # 3.5 10^3/uL (1.5-5.0); LYMPH % 17.7 % (24.0-44.0); MEAN CORPUSCULAR HEMOGLOBIN 30.2 pg (27.0-33.0); MEAN CORPUSCULAR HGB CONC 35.9 g/dl (32.0-36.5); MEAN CORPUSCULAR VOLUME 84.1 fl (80.0-96.0); MONO # 1.2 10^3/uL (0.0-0.8); MONO % 6.2 % (2.0-8.0); NEUTROPHILS # 14.5 10^3/uL (1.5-8.5); NEUTROPHILS % 73.9 % (36.0-66.0); PLATELET COUNT, AUTOMATED 390 10^3/uL (150-450); RED BLOOD COUNT 5.99 10^6/uL (4.30-6.10); WHITE BLOOD COUNT 19.6 10^3/uL (4.0-10.0)
[2023-09-23 16:46] LABS: BLOOD UREA NITROGEN 13 MG/DL (9-23); CALCIUM LEVEL 9.8 MG/DL (8.5-10.1); CARBON DIOXIDE LEVEL 23 MMOL/L (20-31); CHLORIDE LEVEL 99 MMOL/L (98-107); CK-MB VALUE MASS 1.1 NG/ML (<3.6); CPK CREATINE PHOSPHOKINASE 191 U/L (46-171); CREATININE FOR GFR 0.68 MG/DL (0.70-1.30); GLOMERULAR FILTRATION RATE > 60.0 (>60); GLUCOSE, FASTING 95 MG/DL (60-100); MB/CK RELATIVE INDEX 0.57 (< OR =4); POTASSIUM SERUM 4.3 MMOL/L (3.5-5.1); SODIUM LEVEL 133 MMOL/L (136-145)
[2023-09-23 21:29] LABS: CK-MB VALUE MASS < 1.0 NG/ML (<3.6)
[2023-09-23 21:34] LABS: CPK CREATINE PHOSPHOKINASE 176 U/L (46-171); MB/CK RELATIVE INDEX 0.56 (< OR =4)
[2023-09-23 22:42] VITALS: BP 136/74; TEMP 98.8; O2SAT 98
== END 2023-09-23 22:44 | disposition home or self-care (01) ==
LOC: M ED 14:36
DX: I10 Essential (primary) hypertension (principal); D72.829 Elevated white blood cell count, unspecified; F41.9 Anxiety disorder, unspecified; F32.A Depression, unspecified; E66.9 Obesity, unspecified; Z79.899 Other long term (current) drug therapy; Z88.0 Allergy status to penicillin; Z88.1 Allergy status to other antibiotic agents; Z88.5 Allergy status to narcotic agent

== ENCOUNTER → 2024-08-16 | Outpatient (REF) | payer OTHER, MEDICAID ==
[~2024-08-16] MED LIST changes: +AMPH1TAB2; +ATOR1TAB21; +ERGO500029; +ESTR1DIS; +LATU20TA; +LISI10TA24; +LURA20TA; +SPIR100T3
[2024-08-16 14:44] LABS: BASO # 0.1 10^3/uL (0.0-0.2); BASO % 0.7 % (0.0-1.0); EOS # 0.1 10^3/uL (0.0-0.5); EOS % 1.1 % (0.0-3.0); HEMATOCRIT 42.2 % (42.0-52.0); HEMOGLOBIN 14.8 g/dl (13.5-17.5); LYMPH # 2.2 10^3/uL (1.5-5.0); LYMPH % 24.4 % (24.0-44.0); MEAN CORPUSCULAR HEMOGLOBIN 29.8 pg (27.0-33.0); MEAN CORPUSCULAR HGB CONC 35.1 g/dl (32.0-36.5); MEAN CORPUSCULAR VOLUME 84.9 fl (80.0-96.0); MONO # 0.5 10^3/uL (0.0-0.8); MONO % 5.9 % (2.0-8.0); NEUTROPHILS # 6.2 10^3/uL (1.5-8.5); PLATELET COUNT, AUTOMATED 268 10^3/uL (150-450); RED BLOOD COUNT 4.97 10^6/uL (4.30-6.10); WHITE BLOOD COUNT 9.2 10^3/uL (4.0-10.0)
[2024-08-16 15:04] LABS: HEMOGLOBIN A1c 4.9 % (4.0-6.0)
[2024-08-16 15:05] LABS: ALBUMIN 3.4 G/DL (3.2-5.2); ALKALINE PHOSPHATASE 66 U/L (40-129); ALT/SGPT 21 U/L (7.0-40); AST/SGOT 14 U/L (<34); BILIRUBIN,TOTAL 0.4 MG/DL (0.3-1.2); BLOOD UREA NITROGEN 8 MG/DL (9-23); CALCIUM LEVEL 8.6 MG/DL (8.5-10.1); CARBON DIOXIDE LEVEL 29 MMOL/L (20-31); CHLORIDE LEVEL 103 MMOL/L (98-107); CHOLESTEROL LEVEL 194 MG/DL (<200); CREATININE FOR GFR 0.72 MG/DL (0.70-1.30); GLOMERULAR FILTRATION RATE > 60.0 (>60); GLUCOSE, FASTING 111 MG/DL (60-100); HDL CHOLESTEROL 27.7 MG/DL (>40); LDL CHOLESTEROL 96.9 MG/DL (<100); MAGNESIUM LEVEL 1.7 MG/DL (1.8-2.4); NON-HDL-C 166.3 MG/DL; POTASSIUM SERUM 3.9 MMOL/L (3.5-5.1); SODIUM LEVEL 140 MMOL/L (136-145); TOTAL PROTEIN 6.3 G/DL (5.7-8.2); TRIGLYCERIDES LEVEL 347 MG/DL (<150)
[2024-08-16 15:07] LABS: TOTAL 25(OH) VITAMIN D 18.5 NG/ML (20.0-100.0)
== END ==
LOC: M LAB REF 14:07
PROVIDERS: ATTEND Nurse Practitioner Family
DX: E78.5 Hyperlipidemia, unspecified (principal); E55.9 Vitamin D deficiency, unspecified; E66.01 Morbid (severe) obesity due to excess calories

== ENCOUNTER → 2025-02-23 | Outpatient (REF) | payer OTHER, MEDICAID ==
[2025-02-23 14:30] LABS: ALT/SGPT 30 U/L (7.0-40); AST/SGOT 14 U/L (<34); CALCIUM LEVEL 8.4 MG/DL (8.5-10.1); CARBON DIOXIDE LEVEL 26 MMOL/L (20-31); CHLORIDE LEVEL 106 MMOL/L (98-107); CHOLESTEROL LEVEL 215 MG/DL (<200); CHOLESTEROL RISK RATIO 8.56 (<5); CREATININE FOR GFR 0.77 MG/DL (0.70-1.30); GLOMERULAR FILTRATION RATE > 90.0 (>60); NON-HDL-C 189.9 MG/DL; POTASSIUM SERUM 4.2 MMOL/L (3.5-5.1); SODIUM LEVEL 141 MMOL/L (136-145); TRIGLYCERIDES LEVEL 462 MG/DL (<150)
== END ==
LOC: M LAB REF 12:43
PROVIDERS: ATTEND Nurse Practitioner Family
DX: E78.5 Hyperlipidemia, unspecified (principal)